=== PATIENT | female | born 1945 | race Caucasian/White ===

== ENCOUNTER → 2016-07-14 | Outpatient (CLI) | payer MEDICARE ==
--- NOTE | 2016-07-14 10:31 | MM ---
Reason for exam: screening (asymptomatic). Last mammogram was performed 1 year and 7 months ago. History: Patient is postmenopausal. Benign excisional biopsy of the left breast. Physical Findings: A clinical breast exam by your physician is recommended on an annual basis and results should be correlated with mammographic findings. MG 3D Screening Mammo W/Cad Bilateral CC and MLO view(s) were taken. Prior study comparison: December 26, 2014, bilateral MG screening mammo w CAD. December 05, 2013, bilateral MG screening mammo w CAD. November 11, 2011, bilateral digital screening mammo w/CAD. The breast tissue is heterogeneously dense. This may lower the sensitivity of mammography. Finding: There are typically benign vascular, round, linear calcifications in both breasts. There is no discrete abnormality. ASSESSMENT: Benign, BI-RAD 2 RECOMMENDATION: Routine screening mammogram of both breasts in 1 year.
--- NOTE | 2016-07-14 11:28 | BD ---
EXAMINATION TYPE: MG DEXA axial skeleton. DATE OF EXAM: 07/14/2016 9:25 AM COMPARISON: DEXA bone scan December 05, 2013. CLINICAL HISTORY: Postmenopausal female Height: 62 IN Weight: 123 LBS FRAX RISK QUESTIONS: Alcohol (3 or more units per day): NO Family History (Parent hip fracture): NO Glucocorticoids (More than 3mos): NO (Ex: prednisone, prednisolone, methylprednisolone, dexamethasone, and hydrocortisone). History of Fracture in Adulthood: NO Secondary Osteoporosis: 1. Type 1 Diabetes: NO 2. Hyperthyroidism: NO 3. Menopause before 45: AGE 54 4. Malnutrition: NO 5. Chronic liver disease: NO Rheumatoid Arthritis: NO Current Tobacco Use: YES RISK FACTORS HISTORY OF: Smoke tobacco: YES Active: YES Postmenopausal woman: AGE 54 MEDICATIONS: Osteoporosis Medications: YES Which medication: ALENDRONATE SODIUM How Lon + YRS Additional Medications: HYZAAR, ALENDRONATE SODIUM, FISH OIL, BABY ASPIRIN, VIT D, SIMVASTATIN EXAM MEASUREMENTS: Bone mineral densitometry was performed using the [employer] System. Bone mineral density as measured about the Lumbar spine is: ----- L1-L4(G/cm2): 1.366 T Score Values are as follows: ----- L2: -0.4 ----- L3: 3.3 ----- L4: 3.8 ----- L1-L4: 1.5 Bone mineral density has: Increased 4.4% since study of: 12/05/2013 Bone mineral density about the R hip (g/cm2): 0.822 Bone mineral density about the L hip (g/cm2): 0.813 T Score values are as follows: -----R Neck: -1.6 -----L Neck: -1.6 -----R Intertrochanter: -1.9 -----L Intertrochanter: -1.9 Bone mineral density has: Decreased -0.7% since study of: 12/05/2013 IMPRESSION: Osteopenia (T Score between -2.5 and -1 as noted by T score values in the bilateral hips remains pres ent. Bone density felt falsely elevated in the low back due to reactive sclerosis. There remains slightly increased risk of fracture and the patient may be considered for treatment. Re-Screen 1-2 years. NOTE: T-SCORE=SD OF THE YOUNG ADULT MEAN.
== END | disposition home or self-care (01) ==
LOC: RADMAMWWP 09:16
PROVIDERS: ATTEND Family Medicine
DX: Z12.31 Encounter for screening mammogram for malignant neoplasm of breast (principal); M85.852 Other specified disorders of bone density and structure, left thigh; M85.851 Other specified disorders of bone density and structure, right thigh
CPT/HCPCS: 77080; 77063; G0202

== ENCOUNTER → 2018-11-01 | Outpatient (CLI) | payer MEDICARE ==
--- NOTE | 2018-11-02 10:21 | BD ---
EXAMINATION TYPE: Axial Bone Density DATE OF EXAM: 11/01/2018 COMPARISON: 07/14/2016 CLINICAL HISTORY: Postmenopausal female. Osteoporosis screening. Height: 64 inches Weight: 107 FRAX RISK QUESTIONS: Alcohol (3 or more units per day): no Family History (Parent hip fracture): no Glucocorticoids (More than 3mos): no (Ex: prednisone, prednisolone, methylprednisolone, dexamethasone, and hydrocortisone). History of Fracture in Adulthood: no Secondary Osteoporosis: 1. Type 1 Diabetes: no 2. Hyperthyroidism: no 3. Menopause before 45: no 4. Malnutrition: no 5. Chronic liver disease: no Rheumatoid Arthritis: no Current Tobacco Use: yes RISK FACTORS HISTORY OF: Family History of Osteoporosis: unsure Active: yes Diet low in dairy products/other sources of calcium: no Postmenopausal woman: yes Take estrogen and/or progesterone medications: no Lost more than 2 inches in height since high school: unsure; patient states height was about 66 inche s at one time Frequent falls: no Poor Health: no Hyperparathyroidism: no Adrenal Insufficiency: no MEDICATIONS: Prednisone or other steroids: no Thyroid Medications: no Osteoporosis Medications: yes Which medication: Alendronate Sodium How Long: over 5 years Additional Medications: Hyzaar, Simvastatin, Vitamin D Additional History: arthritis EXAM MEASUREMENTS: Bone mineral densitometry was performed using the [employer] System. Bone mineral density as measured about the Lumbar spine is: ----- L1-L4(G/cm2): 1.352 T Score Values are as follows: ----- L2: -0.5 ----- L3: 3.1 ----- L4: 4.1 ----- L1-L4: 1.4 Bone mineral density has: 0.0% since study of: 07/14/2016 Bone mineral density about the R hip (g/cm2): 0.807 Bone mineral density about the L hip (g/cm2): 0.779 T Score values are as follows: -----R Neck: -1.7 -----L Neck: -1.9 -----R Total: -1.7 -----L Total: -1.8 Bone mineral density has: Decreased -2.6% since study of: 07/14/2016 IMPRESSION: Osteopenia (T Score between -2.5 and -1). There is slightly increased risk of fracture and the patient may be considered for treatment. Re-Screen 2-5 years. NOTE: T-SCORE=SD OF THE YOUNG ADULT MEAN.
--- NOTE | 2018-11-02 12:11 | MM ---
Reason for exam: screening (asymptomatic). Last mammogram was performed 2 years and 4 months ago. History: Patient is postmenopausal. Benign excisional biopsy of the left breast. Physical Findings: A clinical breast exam by your physician is recommended on an annual basis and results should be correlated with mammographic findings. MG 3D Screening Mammo W/Cad Bilateral CC and MLO view(s) were taken. Prior study comparison: July 14, 2016, bilateral MG 3d screening mammo w/cad. December 26, 2014, bilateral MG screening mammo w CAD. The breast tissue is extremely dense which could obscure a lesion on mammography. There are benign appearing round linear calcifications bilaterally. There is no discrete abnormality. ASSESSMENT: Benign, BI-RAD 2 RECOMMENDATION: Routine screening mammogram of both breasts in 1 year.
== END ==
LOC: RADMAMWWP 09:58
PROVIDERS: ATTEND Family Medicine
DX: Z12.31 Encounter for screening mammogram for malignant neoplasm of breast (principal); M85.80 Other specified disorders of bone density and structure, unspecified site; M81.0 Age-related osteoporosis without current pathological fracture
CPT/HCPCS: 77063; 77067; 77080

== ENCOUNTER 2021-12-26 05:49 | Inpatient (IN) | payer MEDICARE ==
[2021-12-26] MEDS ORDERED: ONDANSETRON 4 MG/2 ML VIAL IVP ONE (06:05)
[2021-12-26] MEDS ORDERED: MIDAZOLAM 2 MG/2 ML VIAL IV PRN (06:05)
[2021-12-26] MEDS ORDERED: LACTATED RINGERS 1,000 ML IV SCH (06:05)
[2021-12-26] MEDS ORDERED: fentaNYL (PF) 50 MCG/ML 2 ML AMP IVP PRN (06:05)
[2021-12-26] MEDS ORDERED: DEXAMETHASONE SOD PHOSPHATE 4 MG/ML 1 ML VIAL IV ONE (06:05)
[2021-12-26] MEDS ORDERED: HYDROmorphone 0.5 MG/0.5 ML SYRINGE IVP PRN (06:05)
[2021-12-26] MEDS ORDERED: LIDOCAINE 1% (10MG/ML) FOR IV START INTRADERMA PRN (06:05)
[2021-12-26] MEDS ORDERED: LACTATED RINGERS 1,000 ML IV ONE ×5 (06:40→12:15)
[2021-12-26 07:08] LABS: Basophils # (A) 0.1 k/uL (0-0.2); Basophils % (A) 1 %; Eosinophils # (A) 0.2 k/uL (0-0.7); Eosinophils % (A) 3 %; HCT 36.4 % (34.0-46.0); HGB 11.3 gm/dL (11.4-16.0); Hypochromasia Slight; Lymphocytes # (A) 2.1 k/uL (1.0-4.8); Lymphocytes % (A) 27 %; MCH 26.3 pg (25.0-35.0); MCHC 31.1 g/dL (31.0-37.0); MCV 84.4 fL (80.0-100.0); Monocytes # (A) 0.5 k/uL (0-1.0); Monocytes % (A) 7 %; Neutrophils # (A) 4.6 k/uL (1.3-7.7); Neutrophils % (A) 59 %; Platelet Count 297 k/uL (150-450); RBC 4.31 m/uL (3.80-5.40); RDW 14.7 % (11.5-15.5); WBC 7.8 k/uL (3.8-10.6)
[2021-12-26] MEDS ORDERED: fentaNYL (PF) 50 MCG/ML 2 ML AMP IV ONE (07:14)
[2021-12-26] MEDS ORDERED: MIDAZOLAM 2 MG/2 ML VIAL IV ONE ×2 (07:14→07:26)
[2021-12-26] MEDS ORDERED: SUCCINYLCHOLINE CHLORIDE 200 MG/10 ML VIAL IV ONE (07:20)
[2021-12-26] MEDS ORDERED: fentaNYL (PF) 50 MCG/ML 2 ML AMP ONE (07:20)
[2021-12-26] MEDS ORDERED: GLYCOPYRROLATE 0.2 MG/ML 2 ML VIAL ONE (07:20)
[2021-12-26] MEDS ORDERED: LIDOCAINE 2% INJ 20 MG/ML (2 ML VIAL) ONE (07:20)
[2021-12-26] MEDS ORDERED: PROPOFOL 10 MG/ML 20 ML VIAL IV ONE (07:20)
[2021-12-26] MEDS ORDERED: MIDAZOLAM 2 MG/2 ML VIAL ONE (07:20)
[2021-12-26] MEDS ORDERED: ROCURONIUM 10 MG/ML (5 ML VIAL) IV ONE (07:20)
[2021-12-26] MEDS ORDERED: NEOSTIGMINE 1 MG/ML 10 ML VIAL ONE (07:20)
[2021-12-26] MEDS ORDERED: SODIUM CHLORIDE 0.9% IRRIG 1,000 ML BTL IRRIGATION ONE (07:20)
[2021-12-26] MEDS ORDERED: PHENYLEPHRINE-0.9% NACL SYG 1,000 MCG/10 ML SYRINGE ONE (07:20)
[2021-12-26] MEDS ORDERED: HYDROmorphone (PF) 1 MG/ML ONE (07:20)
[2021-12-26] MEDS ORDERED: HEPARIN SODIUM,PORCINE 10,000 UNIT/ML 1 ML VIAL ONE ×2 (07:20)
--- NOTE | 2021-12-26 07:26 | P.GSHP ---
History of Present Illness H&P Date: 12/26/21 Chief Complaint: lower extremity pain 76 year old female with history of claudication and rest pain presents to the hospital for aortobifemoral bypass after workup with aortogram and dopplers demonstrated aorto-iliac occlusive disease with reconstitution at the bilateral femoral arteries. The occlusion extends to the renal arteries and after discussion she would benefit from bypass. She was sent for medical and cardiac clearance and was deemed suitable risk for surgery. She presents today for surgery. She denies any fevers, chills, chest pain or shortness of breath. She states she hasn't smoked a cigarette in a couple of months. - Review of Systems All systems: negative (what is mentioned in the PMH or HPI) Past Medical History Past Medical History: COPD, Hyperlipidemia, Hypertension, Osteoarthritis (OA), Vascular Disorder Additional Past Medical History / Comment(s): vin lower leg pain increasing recently, osteoporosis History of Any Multi-Drug Resistant Organisms: None Reported Past Surgical History: Breast Surgery, Hysterectomy Additional Past Surgical History / Comment(s): benign left breast bx., abd. aortogram Past Anesthesia/Blood Transfusion Reactions: No Reported Reaction Past Psychological History: No Psychological Hx Reported Smoking Status: Former smoker Past Alcohol Use History: Occasional Additional Past Alcohol Use History / Comment(s): 1ppd since age 13 but quit smoking 09-30-21, used to drink 1 beer every Wednesday but hasn't since September Past Drug Use History: None Reported Additional Drug Use History / Comment(s): Drinks one beer every Wednesday. Smokes a pack of cigarettes a day. Medications and Allergies Home Medications Medication Instructions Recorded Confirmed Type Alendronate Sodium [Fosamax] 70 mg PO TREJO 09/29/21 12/25/21 History Aspirin 81 mg PO DAILY 09/29/21 12/25/21 History Calcium Carbonate/Vitamin D3 1 cap PO DAILY 09/29/21 12/25/21 History [Calcium 600 mg-D3 10 Mcg (400 Iu)] Losartan [Cozaar] 50 mg PO DAILY #30 tab 10/02/21 12/25/21 Rx Atorvastatin [Lipitor] 80 mg PO HS 12/25/21 12/25/21 History Allergies Allergy/AdvReac Type Severity Reaction Status Date / Time No Known Allergies Allergy Verified 12/25/21 10:24 Surgical - Exam Vital Signs Temp Pulse Resp BP Pulse Ox 98 F 86 20 197/87 98 12/26/21 06:38 12/26/21 06:38 12/26/21 06:38 12/26/21 06:38 12/26/21 06:38 - General well developed, well nourished, no distress - Eyes PERRL, normal ocular movement - ENT normal pinna, normal nares - Neck no masses, no bruits - Respiratory normal expansion, normal respiratory effort - Cardiovascular Rhythm: regular - Abdomen Abdomen: soft, non tender - Genitourinary normal external genitalia - Integumentary no rash - Neurologic normal coordination, no normal sensation - Psychiatric oriented to time, oriented to person, oriented to place, speech is normal non palpable femoral, popliteal, dp or pt pulses. monophasic dp and pt signals bilaterally Results - Labs 12/26/21 06:38 Abnormal Lab Results - Last 24 Hours (Table) 12/26/21 Range/Units 06:38 Hgb 11.3 L (11.4-16.0) gm/dL Assessment and Plan Assessment: 1. AortoIliac occlusion 2. Rest pain [place] classification 4 3. History of tobacco abuse Plan: To the OR for aorto-bifemoral bypass. Family at bedside, updated and all questions answered.
[2021-12-26 07:43] LABS: ALT 45 U/L (4-34); AST 49 U/L (14-36); African American GFR (CKD) >90 (>60 ml/min/1.73 sqM); Albumin 4.1 g/dL (3.5-5.0); Alkaline Phosphatase 154 U/L (38-126); Anion Gap 8 mmol/L; Blood Urea Nitrogen 20 mg/dL (7-17); Calcium 9.2 mg/dL (8.4-10.2); Carbon Dioxide 27 mmol/L (22-30); Chloride 104 mmol/L (98-107); Glucose 111 mg/dL (74-99); Non-African American GFR(CKD) >90 (>60 ml/min/1.73 sqM); Potassium 3.8 mmol/L (3.5-5.1); Sodium 139 mmol/L (137-145); Total Bilirubin 0.5 mg/dL (0.2-1.3); Total Protein 7.1 g/dL (6.3-8.2)
[2021-12-26] MEDS ORDERED: HEPARIN SODIUM,PORCINE 10,000 UNIT in SODIUM CHLORIDE 0.9% 1,000 ML IRRIGATION ONE (08:15)
[2021-12-26] MEDS ORDERED: ceFAZolin 4,000 MG in SODIUM CHLORIDE 0.9% 1,000 ML IRRIGATION ONE (08:15)
[2021-12-26] MEDS ORDERED: THROMBIN (BOVINE) 5,000 UNIT VIAL TOPICAL ONE ×3 (08:48)
[2021-12-26] MEDS ORDERED: GELATIN SPONGE,ABSORB (LARGE) 1 EACH SPONGE TOPICAL ONE (08:49)
[2021-12-26] MEDS ORDERED: NALOXONE 0.4 MG/ML 1 ML VIAL IVP PRN (12:42)
[2021-12-26] MEDS ORDERED: NALOXONE 0.4 MG/ML 1 ML VIAL IV PRN (12:45)
--- NOTE | 2021-12-26 12:56 | P.OP ---
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 [id number]-[id number] artery bypass with Herron PTFE graft 2. Left femoral artery endarterectomy Implants: Herron PTFE aortic femoral 14-7mm graft Anesthesia: GETA Surgeon: Michael Liu [employer]1: Anna Marie Bowman Estimated Blood Loss (ml): 300 Pathology: other (femoral plaque left, aortic lymph node and femoral lymph node) Condition: stable Disposition: PACU Indications for Procedure: 76 year old female with history of claudication, rest pain, parasthesias with history of angiogram demonstrating severe occlusion of the aorta and iliac arteries with reconstitution to bilateral femoral arteries presents for aortic femoral bypass. Operative Findings: dense calcification infrarenal aorta with occlusion. Pulse noted just beneath the renal arteries. Occlusion of the bilateral iliac arteries. Left femoral artery with dense plaque and stenosis. Right femoral was patent and soft with distal iliac artery occlusion. Description of Procedure: After written and informed consent was obtained from the patient and all risks, benefits and complications were described the patient was brought to the operative suite and laid in a supine position. The area from the chest to the knees was prepped and draped in the usual sterile fashion. Time out was performed in usual fashion and antibiotics were given prior to incision. A mid line incision was then created with a 10 blade scalpel from the xiphoid to the pubic bone. Dissection was then carried down to the abdominal fascia and the abdomen was entered. Intra-abdominal contents were evaluated demonstrating a large liver, and multiple varicosities in the pelvis. The stomach, small bowel and large bowel appeared to be normal without issues. An Omni retractor was then placed and the small bowel was placed into the right upper quadrant to get access to the retroperitoneal area. Once the aorta was located and bowel retracted, the retroperitoneum was incised and dissection was carried down to the aorta and the aorta was dissected free to the renal vein proximally and the bifurcation distally. Meticulous dissection was carried around the aorta to an area of pulse which was noted just below the renal vein. The renal vein was retracted proximally and the aorta was dissected both laterally and medially in order to place a clamp. Once dissection completed the attention was then placed to the femoral dissection. Oblique incisions were performed bilaterally and dissection was carried down to the femoral arteries. The femoral artery was dissected in a circumferential manner and control was obtained of the femoral, superficial femoral and profundus femoris arteries with vessel loops. The tunnel for the femoral limbs were then created under the inguinal ligament into the retroperitoneal area up to the aorta in normal fashion and umbilical tape was placed bilaterally. Once controlled attention was placed back to the aorta. The patient was given heparin and followed with serial ACTs with redosing as needed to maintain an ACT above 200. Once ACT was above 200 the aorta was clamped and arteriotomy was created with an 11 blade scalpel and extended with Bauer Ballard scissors. The aorta demonstrated calcific disease with occlusion at the inferior mesenteric artery. There was pulsatile flow just beneath the renal artery which was just above the arteriotomy. Free debris was removed and a 14 x 7mm Herron PTFE graft was chosen, spatulated and cut and an end to side anastomosis was created with 3-0 Prolene suture in a running fashion. Once completed control of the aorta was released and suture line was interrogated. There was a small leak which was secured with a pledget 6-0 Prolene suture. Attention was then placed to the femoral anastomosis. The previous placed umbilical tape was then secured to the iliac limbs of the graft and they were pulled to the groin bilaterally ensuring no rotation of the graft occurred. The femoral arteries were then clamped and arteriotomy was created with an 11 blade scalpel and extended with Bauer scissors. The right femoral artery was soft distal to the iliac occlusion without any significant plaque burden. There was brisk backbleeding from the SFA and profunda. The graft was spatulated and end to side anastomosis was created with 6-0 Prolene suture in a running fashion. Control was released once completed and pulsatile flow was noted into the SFA and profunda. The left femoral artery noted to be stenotic with significant plaque which required an endarterectomy. Endarterectomy of the femoral, SFA and profunda was performed in usual fashion and plaque was sent off for pathology. Once completed the graft was spatulated and end to side anastomosis was performed with 6-0 Prolene suture in a running fashion. All control was released after completion and good pulse was noted distally in the SFA and profunda. Hemostasis was controlled with gelfoam and thrombin and once hemostatic the areas were copiously irrigated with antibiotic solution and the groin incisions were then closed in a multilayer fashion. Attention was placed back to the abdomen and the abdomen was copiously irrigated with antibiotic solution, hemostasis was ensured and retroperitoneum was closed with 2-0 vicryl in a running fashion. The bowel was interrogated again demonstrating no abnormalities. An nasogastric tube was placed into the stomach and the abdomen was closed. The fascia was closed with loop PDS suture in a running fashion and skin was closed with jahaira. The skin was cleansed and Prevena dressings were placed on all incisions. The patient tolerated the procedure well, had palpable DP and PT pulses at the conclusion of the procedure and was sent to PACU for recovery.
[2021-12-26] MEDS: LACTATED RINGERS 1,000 ML IV SCH ×2 (13:21→13:32)
[2021-12-26] MEDS ORDERED: ACETAMINOPHEN IV (For NPO) 1,000 MG in EMPTY BAG 1 BAG IVPB ONE (14:00)
[2021-12-26 14:25] LABS: Basophils % (A) 0 %; Eosinophils % (A) 0 %; HCT 25.2 % (34.0-46.0); Hypochromasia Moderate; Lymphocytes # (A) 0.6 k/uL (1.0-4.8); Lymphocytes % (A) 10 %; MCH 26.6 pg (25.0-35.0); MCHC 31.2 g/dL (31.0-37.0); MCV 85.3 fL (80.0-100.0); Mean Platelet Volume 7.9; Monocytes # (A) 0.2 k/uL (0-1.0); Monocytes % (A) 4 %; Neutrophils # (A) 4.8 k/uL (1.3-7.7); Neutrophils % (A) 84 %; Platelet Count 221 k/uL (150-450); RBC 2.96 m/uL (3.80-5.40); RDW 14.8 % (11.5-15.5); WBC 5.7 k/uL (3.8-10.6)
[2021-12-26 14:36] LABS: HGB 7.9 gm/dL (11.4-16.0)
[2021-12-26 14:37] LABS: African American GFR (CKD) >90 (>60 ml/min/1.73 sqM); Anion Gap 3 mmol/L; Blood Urea Nitrogen 16 mg/dL (7-17); Calcium 6.9 mg/dL (8.4-10.2); Carbon Dioxide 22 mmol/L (22-30); Chloride 111 mmol/L (98-107); Glucose 137 mg/dL (74-99); Magnesium 1.1 mg/dL (1.6-2.3); Non-African American GFR(CKD) >90 (>60 ml/min/1.73 sqM); Potassium 3.2 mmol/L (3.5-5.1); Sodium 136 mmol/L (137-145)
[2021-12-26 14:47] LABS: Glucose,Whole Blood 158 mg/dL (70-110)
[2021-12-26] MEDS: MORPHINE SULFATE 2 MG/ML SYRINGE IV PRN (15:31)
--- NOTE | 2021-12-26 16:04 | P.CNPUL ---
History of Present Illness Consult date: 12/26/21 Requesting physician: Michael Liu Reason for consult: other (ICU management) Chief complaint: Lower extremities claudication History of present illness: This is a 76-year-old female with known history of peripheral vessel occlusive disease, patient had chronic claudications, patient had aortogram and Dopplers demonstrated I aortic iliac occlusive disease with reconstitution at the bilateral femoral arteries. The occlusion extends to the renal arteries, patient underwent today aortic bifemoral bypass, done by vascular surgery, postoperatively the patient was admitted to the ICU, and I was asked to see her on consultation. Patient is comfortable, hemodynamically stable, she is on 3 L nasal cannula O2 sats was 99%. Denies any shortness of breath denies any cough denies any chest pain, and she had distal pulses palpable by Doppler. No evidence of cyanosis in lower extremities and feet. Review of Systems CONSTITUTIONAL: Denies fever or chills. CARDIOVASCULAR: Denies chest pain, shortness of breath, orthopnea, PND or palpitations. RESPIRATORY: Denies cough. GASTROINTESTINAL: Denies abdominal pain, diarrhea, constipation, nausea or vomiting. MUSCULOSKELETAL: Denies myalgias. NEUROLOGIC: Denies numbness, tingling, headacbe or weakness. ENDOCRINE: Denies fatigue, weight change, polydipsia or polyurina. GENITOURINARY: Denies burning, hematuria or urgency with micturation. HEMATOLOGIC: Denies history of anemia or bleeding. Past Medical History Past Medical History: COPD, Hyperlipidemia, Hypertension, Osteoarthritis (OA), Vascular Disorder Additional Past Medical History / Comment(s): vin lower leg pain increasing recently, osteoporosis History of Any Multi-Drug Resistant Organisms: None Reported Past Surgical History: Breast Surgery, Hysterectomy Additional Past Surgical History / Comment(s): benign left breast bx., abd. aortogram Past Anesthesia/Blood Transfusion Reactions: No Reported Reaction Past Psychological History: No Psychological Hx Reported Smoking Status: Former smoker Past Alcohol Use History: Occasional Additional Past Alcohol Use History / Comment(s): 1ppd since age 13 but quit smoking 09-30-21, used to drink 1 beer every Wednesday but hasn't since September Past Drug Use History: None Reported Additional Drug Use History / Comment(s): Drinks one beer every Wednesday. Smokes a pack of cigarettes a day. Medications and Allergies Home Medications Medication Instructions Recorded Confirmed Type Alendronate Sodium [Fosamax] 70 mg PO TREJO 09/29/21 12/25/21 History Aspirin 81 mg PO DAILY 09/29/21 12/25/21 History Calcium Carbonate/Vitamin D3 1 cap PO DAILY 09/29/21 12/25/21 History [Calcium 600 mg-D3 10 Mcg (400 Iu)] Losartan [Cozaar] 50 mg PO DAILY #30 tab 10/02/21 12/25/21 Rx Atorvastatin [Lipitor] 80 mg PO HS 12/25/21 12/25/21 History Allergies Allergy/AdvReac Type Severity Reaction Status Date / Time No Known Allergies Allergy Verified 12/25/21 10:24 Physical Exam Vitals: Vital Signs Temp Pulse Pulse Pulse Resp BP BP 12/26/21 14:40 96.9 F L 85 14 128/57 12/26/21 14:30 81 13 12/26/21 14:26 87 14 12/26/21 13:50 91 16 144/47 12/26/21 13:33 91 16 143/48 12/26/21 13:18 83 16 139/46 12/26/21 13:02 66 16 107/37 12/26/21 12:49 70 16 116/50 12/26/21 12:34 97.1 F L 69 16 143/48 12/26/21 07:27 75 18 12/26/21 06:38 98 F 86 20 194/84 BP BP Pulse Ox 12/26/21 14:40 99 12/26/21 14:30 93 L 12/26/21 14:26 12/26/21 13:50 126/58 100 12/26/21 13:33 120/56 100 12/26/21 13:18 113/57 100 12/26/21 13:02 110/49 100 12/26/21 12:49 118/57 100 12/26/21 12:34 151/50 100 12/26/21 07:27 144/67 100 12/26/21 06:38 197/87 98 Intake and Output 12/26/21 12/26/21 12/26/21 06:59 14:59 22:59 Intake Total 400 3752 Output Total 675 Balance 400 3077 Intake: IV 400 3752 Output: Urine 325 Estimated Blood Loss 350 Other: Voiding Method Indwelling Catheter Weight 46.8 kg ABP, PAP, CO, CI - Last 8 Hours Arterial Blood Pressure 151/41 Arterial Blood Pressure 139/37 Physical Exam: Revealed a 76-year-old female in no distress, on 3 L nasal cannula. Head: Atraumatic, normocephalic. HEENT:[Neck is supple.] [No neck masses.] [No thyromegaly.] [No JVD.] Chest: [Clear throughout, no crackles, no rhonchi, no wheezes.] Cardiac Exam: [Normal S1 and S2, no S3 gallop, no murmur.] Abdomen: [Soft, nontender, no megaly, no rebound, no guarding, normal bowel sounds.] Extremities: [No clubbing, no edema, no cyanosis.] Neurological Exam: [No focal neurologic deficit.] Alert oriented 3 Psychiatric: Normal mood affect and normal mental status examination. Skin: No rashes. Results - Laboratory Findings CBC and BMP: 12/26/21 13:58 12/26/21 13:58 Abnormal lab findings: Abnormal Labs 12/26/21 12/26/21 12/26/21 06:38 07:05 13:58 RBC Hgb 11.3 L Hct Lymphocytes # Sodium 136 L Potassium 3.2 L Chloride 111 H BUN 20 H Creatinine 0.41 L Glucose 111 H 137 H POC Glucose (mg/dL) Calcium 6.9 L Magnesium 1.1 L AST 49 H ALT 45 H Alkaline Phosphatase 154 H 12/26/21 12/26/21 13:58 14:45 RBC 2.96 L Hgb 7.9 L D Hct 25.2 L Lymphocytes # 0.6 L Sodium Potassium Chloride BUN Creatinine Glucose POC Glucose (mg/dL) 158 H Calcium Magnesium AST ALT Alkaline Phosphatase Assessment and Plan Assessment: Impression: Severe peripheral vessel occlusive disease, status post aortobifemoral bypass surgery. Chronic claudications Nicotine dependence syndrome Hypertension Dyslipidemia Recommendation: Continue present supportive care measures Continue incentive spirometry Titrate oxygen, maintaining O2 saturations of 91% Counseled regarding smoking cessation Resume home meds We will continue to follow Continue GI and DVT prophylaxis. Time with Patient: Greater than 30
[2021-12-26 16:46] LABS: African American GFR (CKD) >90 (>60 ml/min/1.73 sqM); Anion Gap 4 mmol/L; Blood Urea Nitrogen 18 mg/dL (7-17); Calcium 8.1 mg/dL (8.4-10.2); Carbon Dioxide 25 mmol/L (22-30); Chloride 104 mmol/L (98-107); Glucose 163 mg/dL (74-99); Magnesium 1.3 mg/dL (1.6-2.3); Non-African American GFR(CKD) >90 (>60 ml/min/1.73 sqM); Potassium 3.5 mmol/L (3.5-5.1); Sodium 133 mmol/L (137-145)
[2021-12-26] MEDS: HEPARIN SODIUM,PORCINE/PF 5,000 UNIT/0.5 ML SYRINGE SQ SCH (16:52)
[2021-12-26] MEDS ORDERED: Magnesium Replacement Protocol 1 EACH MISC MISCELLANE PRN (16:53)
[2021-12-26] MEDS: PANTOPRAZOLE 40 MG TABLET PO SCH (17:02)
[2021-12-26] MEDS: MAGNESIUM SULFATE-D5W PMX 1 GM in DEXTROSE/WATER 1 100ML.BAG IVPB SCH ×3 (17:02→20:19)
[2021-12-26] MEDS: POTASSIUM CHLORIDE ER 20 MEQ TAB.ER PO SCH ×2 (17:02→18:56)
[2021-12-27] MEDS: ATORVASTATIN 80 MG TAB PO SCH ×2 (02:30→20:05)
[2021-12-27] MEDS: MORPHINE SULFATE 2 MG/ML SYRINGE IV PRN ×4 (03:29→22:26)
[2021-12-27] MEDS: LACTATED RINGERS 1,000 ML IV SCH ×3 (04:03→22:28)
[2021-12-27 05:22] LABS: ALT 21 U/L (4-34); AST 23 U/L (14-36); African American GFR (CKD) >90 (>60 ml/min/1.73 sqM); Albumin 2.2 g/dL (3.5-5.0); Alkaline Phosphatase 68 U/L (38-126); Anion Gap 7 mmol/L; Blood Urea Nitrogen 18 mg/dL (7-17); Carbon Dioxide 19 mmol/L (22-30); Chloride 111 mmol/L (98-107); Glucose 117 mg/dL (74-99); Non-African American GFR(CKD) >90 (>60 ml/min/1.73 sqM); Potassium 3.4 mmol/L (3.5-5.1); Sodium 137 mmol/L (137-145); Total Bilirubin 0.2 mg/dL (0.2-1.3); Total Protein 4.2 g/dL (6.3-8.2)
[2021-12-27 05:41] LABS: Calcium 6.4 mg/dL (8.4-10.2)
[2021-12-27 06:41] LABS: Magnesium 1.9 mg/dL (1.6-2.3)
[2021-12-27] MEDS ORDERED: POTASSIUM CHLORIDE ER 20 MEQ TAB.ER PO SCH (08:00)
[2021-12-27] MEDS ORDERED: ASPIRIN 81 MG PO SCH (09:00)
[2021-12-27] MEDS ORDERED: SODIUM CHLORIDE 0.9% 500 ML 500 ML IV ONE (09:31)
--- NOTE | 2021-12-27 09:55 | P.PN ---
Subjective Progress Note Date: 12/27/21 Patient seen and examined. Per nursing today, she came in and patient was not hooked up to intermittent suction. NG tube was to gravity. There was no suction to the abdominal wound VAC. Currently patient has no significant complaints. Abdominal pain is relatively well controlled. She denies any naus ea but says she is burping a fair bit. Denies any flatus. She apparently had her Bowman catheter removed yesterday evening and only had 180 mL of urine output overnight, she was given 500 mL bolus. Objective - Vital Signs Vital signs: Vital Signs Temp 98.6 F 12/27/21 08:30 Pulse 118 H 12/27/21 09:30 Resp 13 12/27/21 09:30 BP 106/55 12/27/21 09:30 Pulse Ox 95 12/27/21 09:00 FiO2 Intake & Output 12/26/21 12/27/21 12/27/21 18:59 06:59 18:59 Intake Total 4092 1290 300 Output Total 1010 175 0 Balance 3082 1115 300 Weight 55.5 kg Intake: IV 3992 840 300 Lactated Ringers 1,000 ml 240 840 300 @ 60 mls/hr IV .[id number] [facility] Rx#:[id number] Intake, IV Titration 100 100 Amount Magnesium Sulfate-D5w Pmx 100 100 1 gm In Dextrose/Water 1 100ml.bag @ 100 mls/hr IVPB Q1H [facility] Rx#: [id number] Oral 350 Output: Urine 660 175 0 Estimated Blood Loss 350 Other: Voiding Method Indwelling Catheter ABP, PAP, CO, CI - Last Documented Arterial Blood Pressure 133/35 - Exam Patient seen and examined no acute distress. Sitting up in the chair at the bedside. NG tube in place. Poorly fitting dentures. Heart appears regular. Lungs are clear, diminished. Abdomen is soft. Wound VAC intact with adequate suction. Lower extremity are warm and dry. Palpable dorsalis pedis on the right. Multiphasic signals DP PT bilaterally. - Labs CBC & Chem 7: 12/26/21 13:58 12/27/21 04:30 Labs: Abnormal Lab Results - Last 24 Hours (Table) 12/26/21 12/26/21 12/26/21 Range/Units 13:58 13:58 14:45 RBC 2.96 L (3.80-5.40) m/uL Hgb 7.9 L D (11.4-16.0) gm/dL Hct 25.2 L (34.0-46.0) % Lymphocytes # 0.6 L (1.0-4.8) k/uL Sodium 136 L (137-145) mmol/L Potassium 3.2 L (3.5-5.1) mmol/L Chloride 111 H (98-107) mmol/L Carbon Dioxide (22-30) mmol/L BUN (7-17) mg/dL Creatinine 0.41 L (0.52-1.04) mg/dL Glucose 137 H (74-99) mg/dL POC Glucose (mg/dL) 158 H (70-110) mg/dL Calcium 6.9 L (8.4-10.2) mg/dL Magnesium 1.1 L (1.6-2.3) mg/dL Total Protein (6.3-8.2) g/dL Albumin (3.5-5.0) g/dL 12/26/21 12/27/21 Range/Units 16:21 04:30 RBC (3.80-5.40) m/uL Hgb (11.4-16.0) gm/dL Hct (34.0-46.0) % Lymphocytes # (1.0-4.8) k/uL Sodium 133 L (137-145) mmol/L Potassium 3.4 L (3.5-5.1) mmol/L Chloride 111 H (98-107) mmol/L Carbon Dioxide 19 L (22-30) mmol/L BUN 18 H 18 H (7-17) mg/dL Creatinine 0.43 L 0.46 L (0.52-1.04) mg/dL Glucose 163 H 117 H (74-99) mg/dL POC Glucose (mg/dL) (70-110) mg/dL Calcium 8.1 L 6.4 L* (8.4-10.2) mg/dL Magnesium 1.3 L (1.6-2.3) mg/dL Total Protein 4.2 L (6.3-8.2) g/dL Albumin 2.2 L (3.5-5.0) g/dL Assessment and Plan Assessment: Postoperative day #1 from aortobifemoral bypass, left femoral endarterectomy for aortoiliac occlusion Hypocalcemia Hypoalbuminemia Decreased urine output Plan: Patient looks relatively satisfactory for postop day 1 from aortobifemoral bypass. Reinitiate Bowman catheter for accurate I's and O's. Continue NG tube to low intermittent suction until return of bowel function. May have ice chips and sips. May suck on hard candy. Replace albumin. hopeful for out of ICU in the next 24 hours. Check a.m. labs
[2021-12-27 10:24] LABS: HCT 23.3 % (34.0-46.0); HGB 7.5 gm/dL (11.4-16.0); Hypochromasia Moderate; MCH 27.3 pg (25.0-35.0); MCV 85.2 fL (80.0-100.0); Mean Platelet Volume 8.4; Platelet Count 219 k/uL (150-450); RBC 2.73 m/uL (3.80-5.40); WBC 9.8 k/uL (3.8-10.6)
[2021-12-27] MEDS: HEPARIN SODIUM,PORCINE/PF 5,000 UNIT/0.5 ML SYRINGE SQ SCH ×4 (10:25→23:56)
[2021-12-27] MEDS: POTASSIUM BICARBONATE/CIT AC 20 MEQ TABLET.EFF NG-TUBE SCH ×2 (10:25→13:06)
[2021-12-27] MEDS: PANTOPRAZOLE 40 MG/10 ML VIAL IVP SCH (10:25)
[2021-12-27] MEDS: ASPIRIN 81 MG PO SCH (10:26)
[2021-12-27] MEDS: CALCIUM CARB-VIT D 500 MG-5 MCG TAB PO SCH (10:26)
[2021-12-27] MEDS: ALBUMIN HUMAN 25% 50 ML in EMPTY BAG 1 BAG IVPB SCH ×2 (10:27→11:46)
[2021-12-27] MEDS: LOSARTAN 50 MG TAB PO SCH (11:50)
--- NOTE | 2021-12-27 11:54 | XR ---
EXAMINATION TYPE: XR chest 1V portable DATE OF EXAM: 12/27/2021 COMPARISON: 09/30/2021 INDICATION: NG tube placement TECHNIQUE: Single frontal view of the chest is obtained. FINDINGS: The heart size is normal. The pulmonary vasculature is normal. The lungs are clear. Lung apices are out of the [id number]. Nasogastric tube transverses the thorax tip within the left mid abdomen. Surgical skin jahaira are pr esent midline. IMPRESSION: 1. No acute pulmonary process. 2. Nasogastric tube tip is within the left abdomen
[2021-12-27] MEDS: PANTOPRAZOLE 40 MG TABLET PO SCH (12:15)
--- NOTE | 2021-12-27 12:26 | P.PN ---
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 The occlusion extends to the renal arteries, patient underwent today aortic bifemoral bypass, done by vascular surgery, postoperatively the patient was admitted to the ICU, and I was asked to see her on consultation. Patient is comfortable, hemodynamically stable, she is on 3 L nasal cannula O2 sats was 99%. Denies any shortness of breath denies any cough denies any chest pain, and she had distal pulses palpable by Doppler. No evidence of cyanosis in lower extremities and feet. Reevaluated today on 12/27/21, patient is doing well, she is on 2 L nasal cannula, IV fluid 0.9 normal saline 100 mL/h, denies any nausea vomiting s hortness of breath, denies any flatness, patient had her Bowman catheter removed yesterday, and there was only 1 80 mL of urine output overnight. Patient was given a fluid bolus, and her main IV fluid was increased. CBC today showed WBC count of 9.8 hemoglobin of 7.5 electrolytes are normal renal profile is normal, potassium was low being corrected, magnesium was low being corrected. Objective - Vital Signs Vital signs: Vital Signs Temp 98.6 F 12/27/21 08:30 Pulse 89 12/27/21 11:30 Resp 14 12/27/21 11:30 BP 133/55 12/27/21 11:30 Pulse Ox 95 12/27/21 11:30 FiO2 Intake & Output 12/26/21 12/27/21 12/27/21 18:59 06:59 18:59 Intake Total 4092 1290 1100 Output Total 1010 175 85 Balance 3082 1115 1015 Weight 55.5 kg Intake: IV 3992 840 1000 Lactated Ringers 1,000 ml 240 840 500 @ 60 mls/hr IV .[id number] [facility] Rx#:[id number] Sodium Chloride 0.9% 500 500 ml 500 ml @ 999 mls/hr IV .Q31M [facility] Rx#:[id number] Intake, IV Titration 100 100 100 Amount Albumin Human 25% 50 ml 100 In Empty Bag 1 bag @ 50 mls/hr IVPB Q1H [facility] Rx#: [id number] Magnesium Sulfate-D5w Pmx 100 100 1 gm In Dextrose/Water 1 100ml.bag @ 100 mls/hr IVPB Q1H [facility] Rx#: [id number] Oral 350 Output: Urine 660 175 85 Estimated Blood Loss 350 Other: Voiding Method Indwelling Catheter ABP, PAP, CO, CI - Last Documented Arterial Blood Pressure 168/46 - Exam Physical Exam: Revealed a 76-year-old female in no distress, on 3 L nasal cannul a. Head: Atraumatic, normocephalic. HEENT:[Neck is supple.] [No neck masses.] [No thyromegaly.] [No JVD.] Chest: [Clear throughout, no crackles, no rhonchi, no wheezes.] Cardiac Exam: [Normal S1 and S2, no S3 gallop, no murmur.] Abdomen: [Soft, nontender, no megaly, no rebound, no guarding, normal bowel sounds.] Extremities: [No clubbing, no edema, no cyanosis.] Neurological Exam: [No focal neurologic deficit.] Alert oriented 3 Psychiatric: Normal mood affect and normal mental status examination. Skin: No rashes. - Labs CBC & Chem 7: 12/27/21 10:05 12/27/21 04:30 Labs: Abnormal Lab Results - Last 24 Hours (Table) 12/26/21 12/26/21 12/26/21 Range/Units 13:58 13:58 14:45 RBC 2.96 L (3.80-5.40) m/uL Hgb 7.9 L D (11.4-16.0) gm/dL Hct 25.2 L (34.0-46.0) % Lymphocytes # 0.6 L (1.0-4.8) k/uL Sodium 136 L (137-145) mmol/L Potassium 3.2 L (3.5-5.1) mmol/L Chloride 111 H (98-107) mmol/L Carbon Dioxide (22-30) mmol/L BUN (7-17) mg/dL Creatinine 0.41 L (0.52-1.04) mg/dL Glucose 137 H (74-99) mg/dL POC Glucose (mg/dL) 158 H (70-110) mg/dL Calcium 6.9 L (8.4-10.2) mg/dL Magnesium 1.1 L (1.6-2.3) mg/dL Total Protein (6.3-8.2) g/dL Albumin (3.5-5.0) g/dL 12/26/21 12/27/21 12/27/21 Range/Units 16:21 04:30 10:05 RBC 2.73 L (3.80-5.40) m/uL Hgb 7.5 L (11.4-16.0) gm/dL Hct 23.3 L (34.0-46.0) % Lymphocytes # (1.0-4.8) k/uL Sodium 133 L (137-145) mmol/L Potassium 3.4 L (3.5-5.1) mmol/L Chloride 111 H (98-107) mmol/L Carbon Dioxide 19 L (22-30) mmol/L BUN 18 H 18 H (7-17) mg/dL Creatinine 0.43 L 0.46 L (0.52-1.04) mg/dL Glucose 163 H 117 H (74-99) mg/dL POC Glucose (mg/dL) (70-110) mg/dL Calcium 8.1 L 6.4 L* (8.4-10.2) mg/dL Magnesium 1.3 L (1.6-2.3) mg/dL Total Protein 4.2 L (6.3-8.2) g/dL Albumin 2.2 L (3.5-5.0) g/dL Assessment and Plan Assessment: Impression: Severe peripheral vessel occlusive disease, status post aortobifemoral bypass surgery. Postoperative day #1 Chronic claudications Nicotine dependence syndrome Hypertension Dyslipidemia Electrolytes imbalance, being corrected accordingly. Recommendation: Continue present supportive care measures Continue incentive spirometry Titrate oxygen, maintaining O2 saturations of 91% Continue GI and DVT prophylaxis. Address abnormal electrolytes and correct as per protocol. Time with Patient: Less than 30
[2021-12-27] MEDS: amLODIPine 5 MG TAB PO SCH (13:09)
[2021-12-27] MEDS ORDERED: SODIUM CHLORIDE 0.9% 1,000 ML IV ONE (13:13)
--- NOTE | 2021-12-27 15:30 | CONS ---
CONSULTATION REASON FOR CONSULTATION: Advice regarding hypertension and other medical issues, requested by Vascular Surgery. HISTORY OF PRESENT ILLNESS: This 76-year-old woman with a past medical history of multiple medical problems, including hypertension and hyperlipidemia, being followed by Dr. Hester in the outpatient setting, underwent aortobifemoral bypass as well as left femoral endarterectomy by Dr. Liu. Patient tolerated the procedure. Patient is being closely monitored in ICU. The patient has an NG tube. There is no history of any fever, rigors or chills. No history of headache, loss of consciousness, seizures at this time. PAST MEDICAL HISTORY: Reviewed. It includes hypertension, hyperlipidemia. HOME MEDICATIONS: Also reviewed and include Lipitor, Cozaar. Doses and the rest of the medications are reviewed. ALLERGIES: NONE. FAMILY HISTORY: No history of heart rate disease or strokes in the family. SOCIAL HISTORY: Previous history of smoking. REVIEW OF SYSTEMS: Fourteen-point review of systems negative except as mentioned earlier. PHYSICAL EXAMINATION: Pulse is 94, blood pressure 182/47, respiration 20. HEENT: Conjunctivae normal. NECK: No jugular venous distention. CARDIOVASCULAR: S1, S2 muffled. RESPIRATION: Breath sounds diminished at the bases. A few scattered rhonchi. ABDOMEN: Soft, nontender. LEGS: No edema. No swelling. NERVOUS SYSTEM: No focal deficit. SKIN: No ulcer, rash, bleeding. JOINTS: No active deforming arthropathy. LABS: WBC 9.2, hemoglobin 7.2. Other labs are noted. ASSESSMENT: 1. Status post aortobifemoral arterial bypass and left femoral endarterectomy for aortoiliac occlusion. 2. Hypertension. 3. Hyperlipidemia. 4. Multiple medical issues. RECOMMENDATION: In this 76-year-old woman who presented with multiple medical issues, we will monitor the patient closely. I would recommend adding Norvasc to the current regimen. Repeat labs. DVT prophylaxis. Incentive spirometer. Continue the rest of medications. Recommend close followup with Dr. Hester after discharge. Thank you, Dr. Liu. MMSETHL / SOUTHN: [id number] /
[2021-12-27] MEDS ORDERED: FUROSEMIDE 10 MG/ML 4 ML VIAL IV STA (16:19)
[2021-12-27 17:00] LABS: African American GFR (CKD) >90 (>60 ml/min/1.73 sqM); Anion Gap 0 mmol/L; Blood Urea Nitrogen 25 mg/dL (7-17); Carbon Dioxide 27 mmol/L (22-30); Chloride 106 mmol/L (98-107); Glucose 111 mg/dL (74-99); Non-African American GFR(CKD) 88 (>60 ml/min/1.73 sqM); Potassium 4.6 mmol/L (3.5-5.1); Sodium 133 mmol/L (137-145)
--- NOTE | 2021-12-27 17:39 | US ---
EXAMINATION TYPE: US renals and bladder DATE OF EXAM: 12/27/2021 COMPARISON: NONE CLINICAL HISTORY: low urine output. ICU patient. Patient had open abdomen surgery for Aortic Fem byp ass. EXAM MEASUREMENTS: Right Kidney: 9.0 x 4.0 x 3.7 cm Left Kidney: 11.2 x 4.9 x 6.1 cm Right Kidney: Mild hydronephrosis. FF seen adjacent to kidney. Left Kidney: Trace amount of free fluid seen adjacent to kidney. Hydronephrosis vs dilated renal pel vis. Bladder: slightly distended, scherer seen Bilateral Jets not seen due to scherer There is no evidence for hydronephrosis at this point in time. No nephrolithiasis is seen. No jesús s are identified. The urinary bladder is anechoic. Bilateral ureteral jets are seen. IMPRESSION: There is mild bilateral hydronephrosis. There is mild perinephric edema. No evidence of a renal mass. There is a Scherer catheter in the urinary bladder.
[2021-12-27] MEDS: HYDROcodone/APAP 5-325MG 1 EACH TAB PO PRN (20:05)
[2021-12-28] MEDS: HYDROcodone/APAP 5-325MG 1 EACH TAB PO PRN ×2 (02:33→21:37)
[2021-12-28 04:32] LABS: African American GFR (CKD) >90 (>60 ml/min/1.73 sqM); Anion Gap 1 mmol/L; Blood Urea Nitrogen 22 mg/dL (7-17); Calcium 8.2 mg/dL (8.4-10.2); Carbon Dioxide 31 mmol/L (22-30); Chloride 99 mmol/L (98-107); Glucose 106 mg/dL (74-99); Non-African American GFR(CKD) 87 (>60 ml/min/1.73 sqM); Potassium 3.7 mmol/L (3.5-5.1); Sodium 131 mmol/L (137-145)
[2021-12-28 04:56] LABS: HCT 20.1 % (34.0-46.0); Hypochromasia Slight; MCH 25.7 pg (25.0-35.0); MCHC 30.8 g/dL (31.0-37.0); MCV 83.4 fL (80.0-100.0); Mean Platelet Volume 8.3; Platelet Count 209 k/uL (150-450); RBC 2.41 m/uL (3.80-5.40); RDW 14.9 % (11.5-15.5); WBC 9.5 k/uL (3.8-10.6)
[2021-12-28] MEDS ORDERED: Potassium Replacement Protocol 1 EACH MISC MISCELLANE PRN (05:04)
[2021-12-28 05:14] LABS: HGB 6.2 gm/dL (11.4-16.0)
[2021-12-28] MEDS ORDERED: POTASSIUM BICARBONATE/CIT AC 20 MEQ TABLET.EFF NG-TUBE SCH (06:00)
[2021-12-28] MEDS: LOSARTAN 50 MG TAB PO SCH (08:34)
[2021-12-28] MEDS: CALCIUM CARB-VIT D 500 MG-5 MCG TAB PO SCH (08:34)
[2021-12-28] MEDS: PANTOPRAZOLE 40 MG/10 ML VIAL IVP SCH (08:34)
[2021-12-28] MEDS: amLODIPine 5 MG TAB PO SCH (08:34)
[2021-12-28] MEDS ORDERED: NON FORMULARY DRUG (Alendronate Sodium [Fosamax] 70 MG Tablet) PO SCH (09:00)
[2021-12-28] MEDS: MORPHINE SULFATE 2 MG/ML SYRINGE IV PRN ×2 (09:14→17:31)
[2021-12-28] MEDS: LACTATED RINGERS 1,000 ML IV SCH ×2 (11:27→23:48)
[2021-12-28] MEDS: HEPARIN SODIUM,PORCINE/PF 5,000 UNIT/0.5 ML SYRINGE SQ SCH ×3 (11:36→23:49)
[2021-12-28] MEDS: ASPIRIN 81 MG PO SCH (11:36)
--- NOTE | 2021-12-28 12:04 | P.PN ---
Subjective Progress Note Date: 12/28/21 Principal diagnosis: Status post aortobifemoral bypass surgery, postoperative day #2 This is a 76-year-old female with known history of peripheral vessel occlusive disease, patient had chronic claudications, patient had aortogram and Dopplers demonstrated I aortic iliac occlusive disease with reconstitution at the bilateral femoral arteries. The occlusion extends to the renal arteries, patient underwent today aortic bifemoral bypass, done by vascular surgery, postoperatively the patient was admitted to the ICU, and I was asked to see her on consultation. Patient is comfortable, hemodynamically stable, she is on 3 L nasal cannula O2 sats was 99%. Denies any shortness of breath denies any cough denies any chest pain, and she had distal pulses palpable by Doppler. No evidence of cyanosis in lower extremities and feet. Reevaluated today on 12/27/21, patient is doing well, she is on 2 L nasal cannula, IV fluid 0.9 normal saline 100 mL/h, denies any nausea vomiting s hortness of breath, denies any flatness, patient had her Bowman catheter removed yesterday, and there was only 1 80 mL of urine output overnight. Patient was given a fluid bolus, and her main IV fluid was increased. CBC today showed WBC count of 9.8 hemoglobin of 7.5 electrolytes are normal renal profile is normal, potassium was low being corrected, magnesium was low being corrected. Reevaluated today on 12/28/21, patient remains in the ICU, doing quite well. However her hemoglobin dropped and she is requiring a unit of packed RBCs ordered by vascular surgery earlier today. Patient had issues related to her urine output, she received multiple fluid boluses yesterday, and she wasn't improving much, hence she was given a dose of Lasix, and she diuresed almost 2 L of fluids. Patient has no specific symptoms today, she feels generally weak, otherwise she is relatively asymptomatic. Hemoglobin today is 6.2. Left was are normal renal profile is normal Objective - Vital Signs Vital signs: Vital Signs Temp 98.1 F 12/28/21 11:21 Pulse 94 12/28/21 11:21 Resp 16 12/28/21 11:21 BP 147/74 12/28/21 11:21 Pulse Ox 97 12/28/21 11:21 FiO2 Intake & Output 12/27/21 12/28/21 12/28/21 18:59 06:59 18:59 Intake Total 2800 2100 710 Output Total 820 1590 160 Balance 1980 510 550 Weight 55.2 kg Intake: IV 2700 900 300 Lactated Ringers 1,000 ml 300 @ 100 mls/hr IV .Q10H [facility] Rx#:[id number] Lactated Ringers 1,000 ml 1200 900 @ 60 mls/hr IV .[id number] [facility] Rx#:[id number] Sodium Chloride 0.9% 1, 1000 000 ml @ 999 mls/hr IV . Q1H1M [facility] Rx#:[id number] Sodium Chloride 0.9% 500 500 ml 500 ml @ 999 mls/hr IV .Q31M [facility] Rx#:[id number] Intake, IV Titration 100 1200 100 Amount Albumin Human 25% 50 ml 100 In Empty Bag 1 bag @ 50 mls/hr IVPB Q1H [facility] Rx#: [id number] Lactated Ringers 1,000 ml 1200 100 @ 100 mls/hr IV .Q10H [facility] Rx#:[id number] Blood Product 310 Rc As-1 Unit 310 [id number] Output: Urine 820 1590 160 Other: Voiding Method Indwelling Catheter Indwelling Catheter ABP, PAP, CO, CI - Last Documented Arterial Blood Pressure 213/44 - Exam Physical Exam: Revealed a 76-year-old female in no distress, on 3 L nasal cannula. Head: Atraumatic, normocephalic. HEENT:[Neck is supple.] [No neck masses.] [No thyromegaly.] [No JVD.] Chest: [Clear throughout, no crackles, no rhonchi, no wheezes.] Cardiac Exam: [Normal S1 and S2, no S3 gallop, no murmur.] Abdomen: [Soft, nontender, no megaly, no rebound, no guarding, normal bowel sounds.] Extremities: [No clubbing, no edema, no cyanosis.] Neurological Exam: [No focal neurologic deficit.] Alert oriented 3 Psychiatric: Normal mood affect and normal mental status examination. Skin: No rashes. - Labs CBC & Chem 7: 12/28/21 04:45 12/28/21 04:00 Labs: Abnormal Lab Results - Last 24 Hours (Table) 12/26/21 12/27/21 12/28/21 Range/Units 06:38 16:32 04:00 RBC (3.80-5.40) m/uL Hgb (11.4-16.0) gm/dL Hct (34.0-46.0) % MCHC (31.0-37.0) g/dL Sodium 133 L 131 L (137-145) mmol/L Carbon Dioxide 31 H (22-30) mmol/L BUN 25 H 22 H (7-17) mg/dL Glucose 111 H 106 H (74-99) mg/dL Calcium 8.0 L 8.2 L (8.4-10.2) mg/dL Crossmatch See Detail 12/28/21 Range/Units 04:45 RBC 2.41 L (3.80-5.40) m/uL Hgb 6.2 L* (11.4-16.0) gm/dL Hct 20.1 L (34.0-46.0) % MCHC 30.8 L (31.0-37.0) g/dL Sodium (137-145) mmol/L Carbon Dioxide (22-30) mmol/L BUN (7-17) mg/dL Glucose (74-99) mg/dL Calcium (8.4-10.2) mg/dL Crossmatch Assessment and Plan Assessment: Impression: Severe peripheral vessel occlusive disease, status post aortobifemoral bypass surgery. Postoperative day #2 Chronic claudications Nicotine dependence syndrome Hypertension Dyslipidemia Electrolytes imbalance, being corrected accordingly. Acute blood loss anemia on Chronic anemia, needs outpatient workup, if not already done, suspect acute blood loss anemia from surgery nonetheless the patient still needs workup and this is expected Recommendation: Transfusions with 1 unit of packed RBCs Continue to monitor in the ICU Continue present supportive care measures Continue incentive spirometry Titrate oxygen, maintaining O2 saturations of 91% Continue GI and DVT prophylaxis. Check Hemoccult We'll continue to follow Time with Patient: Less than 30
--- NOTE | 2021-12-28 12:14 | P.PN ---
Subjective Progress Note Date: 12/28/21 Patient seen and examined. Doing well overall without significant complaints. did not sleep well last night. Did take a good Nap getting her blood transfusion for her anemia. Adequate urine output with Bowman catheter. Objective - Vital Signs Vital signs: Vital Signs Temp 98.1 F 12/28/21 11:21 Pulse 94 12/28/21 11:21 Resp 16 12/28/21 11:21 BP 147/74 12/28/21 11:21 Pulse Ox 97 12/28/21 11:21 FiO2 Intake & Output 12/27/21 12/28/21 12/28/21 18:59 06:59 18:59 Intake Total 2800 2100 710 Output Total 820 1590 160 Balance 1980 510 550 Weight 55.2 kg Intake: IV 2700 900 300 Lactated Ringers 1,000 ml 300 @ 100 mls/hr IV .Q10H [facility] Rx#:[id number] Lactated Ringers 1,000 ml 1200 900 @ 60 mls/hr IV .[id number] [facility] Rx#:[id number] Sodium Chloride 0.9% 1, 1000 000 ml @ 999 mls/hr IV . Q1H1M [facility] Rx#:[id number] Sodium Chloride 0.9% 500 500 ml 500 ml @ 999 mls/hr IV .Q31M [facility] Rx#:[id number] Intake, IV Titration 100 1200 100 Amount Albumin Human 25% 50 ml 100 In Empty Bag 1 bag @ 50 mls/hr IVPB Q1H [facility] Rx#: [id number] Lactated Ringers 1,000 ml 1200 100 @ 100 mls/hr IV .Q10H [facility] Rx#:[id number] Blood Product 310 Rc As-1 Unit 310 [id number] Output: Urine 820 1590 160 Other: Voiding Method Indwelling Catheter Indwelling Catheter ABP, PAP, CO, CI - Last Documented Arterial Blood Pressure 213/44 - Exam Patient seen and examined no acute distress. NG tube in place. Poorly fitting dentures. Heart appears regular. Lungs are clear, diminished. Abdomen is soft. Mild incisional tenderness as expected. Wound VAC intact with adequate suction. Lower extremity are warm and dry. Palpable dorsalis pedis on the right. Multiphasic signals DP PT bilaterally. Moderate left lower extremity edema mild on the right - Labs CBC & Chem 7: 12/28/21 04:45 12/28/21 04:00 Labs: Abnormal Lab Results - Last 24 Hours (Table) 12/26/21 12/27/21 12/28/21 Range/Units 06:38 16:32 04:00 RBC (3.80-5.40) m/uL Hgb (11.4-16.0) gm/dL Hct (34.0-46.0) % MCHC (31.0-37.0) g/dL Sodium 133 L 131 L (137-145) mmol/L Carbon Dioxide 31 H (22-30) mmol/L BUN 25 H 22 H (7-17) mg/dL Glucose 111 H 106 H (74-99) mg/dL Calcium 8.0 L 8.2 L (8.4-10.2) mg/dL Crossmatch See Detail 12/28/21 Range/Units 04:45 RBC 2.41 L (3.80-5.40) m/uL Hgb 6.2 L* (11.4-16.0) gm/dL Hct 20.1 L (34.0-46.0) % MCHC 30.8 L (31.0-37.0) g/dL Sodium (137-145) mmol/L Carbon Dioxide (22-30) mmol/L BUN (7-17) mg/dL Glucose (74-99) mg/dL Calcium (8.4-10.2) mg/dL Crossmatch Assessment and Plan Assessment: Postoperative day #2 from aortobifemoral bypass, left femoral endarterectomy for aortoiliac occlusion Acute blood loss anemia, no evidence of active bleeding Decreased urine output -resolved Plan: Doing well overall, Continue NG tube to low intermittent suction until return of bowel function. May have ice chips and sips. May suck on hard candy. has transfuse 1 pack PRBC. Monitor labs. Increase activity.
[2021-12-28 14:50] LABS: Basophils % (A) 0 %; Eosinophils % (A) 0 %; HCT 25.8 % (34.0-46.0); Hypochromasia Slight; Lymphocytes # (A) 1.1 k/uL (1.0-4.8); Lymphocytes % (A) 10 %; MCH 27.8 pg (25.0-35.0); MCHC 32.6 g/dL (31.0-37.0); MCV 85.3 fL (80.0-100.0); Mean Platelet Volume 8.2; Monocytes # (A) 0.6 k/uL (0-1.0); Monocytes % (A) 6 %; Neutrophils # (A) 8.2 k/uL (1.3-7.7); Neutrophils % (A) 80 %; Platelet Count 206 k/uL (150-450); Poikilocytosis Slight; RBC 3.03 m/uL (3.80-5.40); RDW 14.9 % (11.5-15.5); WBC 10.3 k/uL (3.8-10.6)
[2021-12-28 15:16] LABS: HGB 8.4 gm/dL (11.4-16.0)
--- NOTE | 2021-12-28 15:23 | PN ---
PROGRESS NOTE DATE OF SERVICE: 12/28/2021 This 76-year-old woman who was admitted after vascular surgery has anemia today. The patient is being transfused one unit. No chest pain. No palpitations. No fever. The patient has an NG tube. PHYSICAL EXAMINATION: Pulse 89, blood pressure 120/60, respirations 17. HEENT: Conjunctivae pale. Oral mucosa CARDIOVASCULAR: S1, S2 muffled. RESPIRATION: Breath sounds diminished at the bases. ABDOMEN: Soft, nontender. NERVOUS SYSTEM: No focal deficit. LABS: Hemoglobin 6.2. Rest of the labs are noted. ASSESSMENT: 1. Status post aortobifemoral arterial bypass with left femoral endarterectomy for aortoiliac occlusion. 2. Anemia. 3. Hypertension. 4. Hyperlipidemia. 5. Multiple medical issues. RECOMMENDATIONS AND DISCUSSION: I recommend to continue current medications, continue with the monitoring, symptomatic treatment. One unit transfusion. Repeat labs in the morning. Closely follow with Vascular Surgery. Dr. Hester will follow tomorrow. MMSETHL / IJN: [id number] / [id number]
[2021-12-28] MEDS: ATORVASTATIN 80 MG TAB PO SCH (21:23)
[2021-12-29] MEDS: MORPHINE SULFATE 2 MG/ML SYRINGE IV PRN (03:47)
[2021-12-29 05:52] LABS: HCT 27.2 % (34.0-46.0); HGB 8.7 gm/dL (11.4-16.0); Hypochromasia Slight; MCH 27.2 pg (25.0-35.0); MCHC 32.1 g/dL (31.0-37.0); MCV 84.9 fL (80.0-100.0); Mean Platelet Volume 8.3; Platelet Count 219 k/uL (150-450); Poikilocytosis Slight; WBC 11.1 k/uL (3.8-10.6)
[2021-12-29 06:05] LABS: ALT 14 U/L (4-34); AST 20 U/L (14-36); African American GFR (CKD) >90 (>60 ml/min/1.73 sqM); Albumin 2.6 g/dL (3.5-5.0); Alkaline Phosphatase 71 U/L (38-126); Anion Gap 2 mmol/L; Blood Urea Nitrogen 21 mg/dL (7-17); Calcium 7.8 mg/dL (8.4-10.2); Carbon Dioxide 29 mmol/L (22-30); Chloride 101 mmol/L (98-107); Glucose 89 mg/dL (74-99); Non-African American GFR(CKD) 88 (>60 ml/min/1.73 sqM); Potassium 3.7 mmol/L (3.5-5.1); Sodium 132 mmol/L (137-145); Total Protein 4.7 g/dL (6.3-8.2)
[2021-12-29] MEDS ORDERED: Potassium Replacement Protocol 1 EACH MISC MISCELLANE PRN (06:36)
[2021-12-29] MEDS ORDERED: POTASSIUM BICARBONATE/CIT AC 20 MEQ TABLET.EFF NG-TUBE SCH (07:00)
[2021-12-29] MEDS: CALCIUM CARB-VIT D 500 MG-5 MCG TAB PO SCH (08:00)
[2021-12-29] MEDS: HEPARIN SODIUM,PORCINE/PF 5,000 UNIT/0.5 ML SYRINGE SQ SCH ×3 (08:00→23:55)
[2021-12-29] MEDS: LOSARTAN 50 MG TAB PO SCH (08:00)
[2021-12-29] MEDS: ASPIRIN 81 MG PO SCH (08:00)
[2021-12-29] MEDS: PANTOPRAZOLE 40 MG/10 ML VIAL IVP SCH (08:00)
[2021-12-29] MEDS: amLODIPine 5 MG TAB PO SCH (08:00)
[2021-12-29] MEDS ORDERED: BENZOCAINE/MENTHOL LOZENG 1 EACH LOZENGE MUCOUS MEM PRN (08:40)
--- NOTE | 2021-12-29 09:30 | P.PN ---
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 She states her pain is well managed. She states she feels like she is starting to pass flatus. She denies any nausea or vomiting. She does state that she has a little bit of a sore throat. She has not been up yet but states she's been up in the chair yesterday. She has not been ambulating within her room. Hemoglobin stable at 8.7. She is afebrile. NG tube remains in at low intermittent suction. Objective - Vital Signs Vital signs: Vital Signs Temp 98 F 12/29/21 08:00 Pulse 90 12/29/21 08:00 Resp 17 12/29/21 08:00 BP 147/63 12/29/21 08:00 Pulse Ox 89 L 12/29/21 08:00 FiO2 Intake & Output 12/28/21 12/29/21 12/29/21 18:59 06:59 18:59 Intake Total 1235 1050 135 Output Total 487 627 40 Balance 748 423 95 Weight 55.6 kg Intake: IV 825 1050 75 Lactated Ringers 1,000 ml 825 1050 75 @ 75 mls/hr IV .[id number] [facility] Rx#:[id number] Intake, IV Titration 100 Amount Lactated Ringers 1,000 ml 100 @ 75 mls/hr IV .[id number] [facility] Rx#:[id number] Blood Product 310 Rc As-1 Unit 310 [id number] Other 60 Output: Urine 487 627 40 Other: Voiding Method Indwelling Catheter Indwelling Catheter ABP, PAP, CO, CI - Last Documented Arterial Blood Pressure 213/44 - Exam General appearance: The patient is alert, oriented, appears in no acute distress. HET: Head is normocephalic and atraumatic. Pupils are equal and reactive. Neck: Supple without lymphadenopathy. Trachea midline. Heart: S1 S2. Regular rate and rhythm. Lungs: Clear to auscultation bilaterally. Abdomen: Soft, nontender, normal active bowel sounds, nondistended. Incision to abdomen with prevena dressing. Extremities: Normal skin color and turgor. Bilateral groins with Prevena dressing intact. Bilateral lower extremity edema. Palpable left dorsalis pedis. Multiphasic bilateral PT signal, and right DP signal. Neurological: No focal deficits. Strength and sensation are grossly intact. - Labs CBC & Chem 7: 12/29/21 05:25 12/29/21 05:25 Labs: Abnormal Lab Results - Last 24 Hours (Table) 12/26/21 12/28/21 12/29/21 Range/Units 06:38 14:20 05:25 WBC (3.8-10.6) k/uL RBC 3.03 L (3.80-5.40) m/uL Hgb 8.4 L D (11.4-16.0) gm/dL Hct 25.8 L (34.0-46.0) % Neutrophils # 8.2 H (1.3-7.7) k/uL Sodium 132 L (137-145) mmol/L BUN 21 H (7-17) mg/dL Calcium 7.8 L (8.4-10.2) mg/dL Total Protein 4.7 L (6.3-8.2) g/dL Albumin 2.6 L (3.5-5.0) g/dL Crossmatch See Detail 12/29/21 Range/Units 05:25 WBC 11.1 H (3.8-10.6) k/uL RBC 3.20 L (3.80-5.40) m/uL Hgb 8.7 L (11.4-16.0) gm/dL Hct 27.2 L (34.0-46.0) % Neutrophils # (1.3-7.7) k/uL Sodium (137-145) mmol/L BUN (7-17) mg/dL Calcium (8.4-10.2) mg/dL Total Protein (6.3-8.2) g/dL Albumin (3.5-5.0) g/dL Crossmatch Assessment and Plan Assessment: 1. Postoperative day #3 from aortobifemoral bypass, left femoral endarterectomy for aortoiliac occlusion 2. Acute blood loss anemia, no evidence of active bleeding 3. Decreased urine output -resolved Plan: 1. Order Cepacol lozenges 2. Encourage ambulation 3. Clamp NG tube. 4. Patient may have clear liquid diet 5. Continue with incentive spirometer 6. Continue Prevena dressing 7. Further recommendations forthcoming per vascular surgeon The impression and plan of care has been dictated as directed. I performed a history and examination of this patient, discussed the same with the dictator. I agree with the dictator's note ,documented as a scribe. Any additional findings or plans will be noted. Ok to be transferred out of ICU
[2021-12-29] MEDS: LACTATED RINGERS 1,000 ML IV SCH ×2 (10:29→23:56)
[2021-12-29] MEDS: HYDROcodone/APAP 5-325MG 1 EACH TAB PO PRN ×2 (11:02→23:57)
--- NOTE | 2021-12-29 11:10 | P.PN ---
Subjective Progress Note Date: 12/29/21 Principal diagnosis: Hypotension, anemia. Status post aortobifemoral bypass surgery, postoperative day #2 This is a 76-year-old female with known history of peripheral vessel occlusive disease, patient had chronic claudications, patient had aortogram and Dopplers demonstrated I aortic iliac occlusive disease with reconstitution at the bilateral femoral arteries. The occlusion extends to the renal arteries, patient underwent today aortic bifemoral bypass, done by vascular surgery, postoperatively the patient was admitted to the ICU, and I was asked to see her on consultation. Patient is comfortable, hemodynamically stable, she is on 3 L nasal cannula O2 sats was 99%. Denies any shortness of breath denies any cough denies any chest pain, and she had distal pulses palpable by Doppler. No evidence of cyanosis in lower extremities and feet. Reevaluated today on 12/27/21, patient is doing well, she is on 2 L nasal cannula, IV fluid 0.9 normal saline 100 mL/h, denies any nausea vomiting shortness of breath, denies any flatness, patient had her Bowman catheter removed yesterday, and there was only 1 80 mL of urine output overnight. Patient was given a fluid bolus, and her main IV fluid was increased. CBC today showed WBC count of 9.8 hemoglobin of 7.5 electrolytes are normal renal profile is normal, potassium was low being corrected, magnesium was low being corrected. Reevaluated today on 12/28/21, patient remains in the ICU, doing quite well. However her hemoglobin dropped and she is requiring a unit of packed RBCs ordered by vascular surgery earlier today. Patient had issues related to her urine output, she received multiple fluid boluses yesterday, and she wasn't improving much, hence she was given a dose of Lasix, and she diuresed almost 2 L of fluids. Patient has no specific symptoms today, she feels generally weak, otherwise she is relatively asymptomatic. Hemoglobin today is 6.2. Left was are normal renal profile is normal Progress note dated 12/29/2021. This is a 76-year-old female was admitted on December 26 for a aortobifem bypass. The patient is postop day #3. Currently, she is on room air. NG tube is still in place. She's getting lactated Ringer's at 75 mL an hour. She was anemic, but today's hemoglobin is up to 8.7. She also had some transient hypotension, but her blood pressures much better controlled. White count 11.1, hemoglobin 8.7, hematocrit 27.2, and platelet count is normal. Sodium 132, potassium 3.7, chlorides 101, CO2 29, BUN 21, creatinine 0.62. Albumin is 2.6. No chest x-ray today. Objective - Vital Signs Vital signs: Vital Signs Temp 98 F 12/29/21 08:00 Pulse 89 12/29/21 10:00 Resp 15 12/29/21 10:00 BP 151/64 12/29/21 10:00 Pulse Ox 88 L 12/29/21 10:00 FiO2 Intake & Output 12/28/21 12/29/21 12/29/21 18:59 06:59 18:59 Intake Total 1235 1050 285 Output Total 487 627 100 Balance 748 423 185 Weight 55.6 kg Intake: IV 825 1050 225 Lactated Ringers 1,000 ml 825 1050 225 @ 75 mls/hr IV .[id number] [facility] Rx#:[id number] Intake, IV Titration 100 Amount Lactated Ringers 1,000 ml 100 @ 75 mls/hr IV .[id number] [facility] Rx#:[id number] Blood Product 310 Rc As-1 Unit 310 [id number] Other 60 Output: Urine 487 627 100 Other: Voiding Method Indwelling Catheter Indwelling Catheter Indwelling Catheter ABP, PAP, CO, CI - Last Documented Arterial Blood Pressure 213/44 - Exam No acute distress, oriented 3. NG tube in place. Currently on room air. HEENT examination is grossly unremarkable. Neck supple. Full range of motion. No adenopathy thyromegaly or neck vein distention. Cardiovascular examination reveals regular rhythm rate. S1-S2 normal. No S3 or S4. No discernible murmur noted. Heart rate 92 bpm. Lungs reveal clear breath sounds. Breath sounds are equal bilaterally. No adventitious lung sounds including wheezes rhonchi or crackles. Saturations 88- 90% on room air. Abdomen soft bowel sounds are heard. No masses or tenderness. Extremities are intact. No cyanosis clubbing or edema. Skin is without rash or lesion. Neurologic examination is brief but nonfocal. - Labs CBC & Chem 7: 12/29/21 05:25 12/29/21 05:25 Labs: Abnormal Lab Results - Last 24 Hours (Table) 12/26/21 12/28/21 12/29/21 Range/Units 06:38 14:20 05:25 WBC (3.8-10.6) k/uL RBC 3.03 L (3.80-5.40) m/uL Hgb 8.4 L D (11.4-16.0) gm/dL Hct 25.8 L (34.0-46.0) % Neutrophils # 8.2 H (1.3-7.7) k/uL Sodium 132 L (137-145) mmol/L BUN 21 H (7-17) mg/dL Calcium 7.8 L (8.4-10.2) mg/dL Total Protein 4.7 L (6.3-8.2) g/dL Albumin 2.6 L (3.5-5.0) g/dL Crossmatch See Detail 12/29/21 Range/Units 05:25 WBC 11.1 H (3.8-10.6) k/uL RBC 3.20 L (3.80-5.40) m/uL Hgb 8.7 L (11.4-16.0) gm/dL Hct 27.2 L (34.0-46.0) % Neutrophils # (1.3-7.7) k/uL Sodium (137-145) mmol/L BUN (7-17) mg/dL Calcium (8.4-10.2) mg/dL Total Protein (6.3-8.2) g/dL Albumin (3.5-5.0) g/dL Crossmatch Assessment and Plan Assessment: Postop day #3, status post aortobifemoral bypass, for severe peripheral vascular occlusive disease. History of chronic claudication. Nicotine dependence syndrome, rule out COPD. History of hypertension. History of hyperlipidemia. Acute blood loss anemia, improved. Plan: Plan dated 12/29/2021. The patient did receive a unit of blood. Today's hemoglobin is 8.7. The patient remains on room air. She does likely have underlying COPD from previous heavy tobacco use. We recommend hourly use of the incentive spirometer. I believe things will improve once her NG tube comes out. Continue GI and DVT prophylaxis. The patient has a stable blood pressure. The patient could be transferred out of the intensive care unit. Time with Patient: Less than 30
--- NOTE | 2021-12-29 14:14 | P.PN ---
Subjective Progress Note Date: 12/29/21 This is a 76-year-old female status post aortobifemoral arterial bypass with left femoral endarterectomy for aortoiliac occlusion, anemia and multiple other medical issues. Transfuse 1 unit of packed RBCs yesterday, hemoglobin increased 8.7. Continues on IV fluid hydration of LR at 75 MLS an hour. NG tube to LIS. Passing flatus. Denies chest pain, palpitations or increased shortness of breath. Telemetry sinus tachycardia. Sodium 142. Renal function stable. Maintaining O2 sats in the low 90s on room air. Objective - Vital Signs Vital signs: Vital Signs Temp 98 F 12/29/21 12:00 Pulse 95 12/29/21 12:00 Resp 14 12/29/21 12:00 BP 140/63 12/29/21 12:00 Pulse Ox 96 12/29/21 12:00 FiO2 Intake & Output 12/28/21 12/29/21 12/29/21 18:59 06:59 18:59 Intake Total 1235 1050 495 Output Total 487 627 172 Balance 748 423 323 Weight 55.6 kg Intake: IV 825 1050 375 Lactated Ringers 1,000 ml 825 1050 375 @ 75 mls/hr IV .[id number] [facility] Rx#:[id number] Intake, IV Titration 100 Amount Lactated Ringers 1,000 ml 100 @ 75 mls/hr IV .[id number] [facility] Rx#:[id number] Blood Product 310 Rc As-1 Unit 310 [id number] Other 120 Output: Urine 487 627 172 Other: Voiding Method Indwelling Catheter Indwelling Catheter Indwelling Catheter ABP, PAP, CO, CI - Last Documented Arterial Blood Pressure 213/44 - Exam PHYSICAL EXAM: VITAL SIGNS: [As above] GENERAL: Sitting up in bed, no acute distress. HEENT: Conjunctivae normal. eyes normal. NG tube present NECK: Supple, No JVD. CARDIOVASCULAR: S1, S2 regular, tachycardic, No murmur RESPIRATION: Breath sounds diminished in the bases. No rhonchi or crackles. ABDOMEN: Soft, status post surgery, prevana dressing present.No guarding. EXTREMITIES: Bilateral groins with Prevena Dressing present.Bilateral lower extremites warm, palpable left DP/Doppler right DP. PSYCHIATRY: Alert and oriented X3, mood and affect normal. NERVOUS SYSTEM: Cranial N 2-12 grossly normal.No focal deficit. Strength and sensation grossly intact. Skin: Warm and dry, no rash - Labs CBC & Chem 7: 12/29/21 05:25 12/29/21 05:25 Labs: Abnormal Lab Results - Last 24 Hours (Table) 12/28/21 12/29/21 12/29/21 Range/Units 14:20 05:25 05:25 WBC 11.1 H (3.8-10.6) k/uL RBC 3.03 L 3.20 L (3.80-5.40) m/uL Hgb 8.4 L D 8.7 L (11.4-16.0) gm/dL Hct 25.8 L 27.2 L (34.0-46.0) % Neutrophils # 8.2 H (1.3-7.7) k/uL Sodium 132 L (137-145) mmol/L BUN 21 H (7-17) mg/dL Calcium 7.8 L (8.4-10.2) mg/dL Total Protein 4.7 L (6.3-8.2) g/dL Albumin 2.6 L (3.5-5.0) g/dL Assessment and Plan Assessment: Aortoiliac occlusion, Status post aortobifemoral arterial bypass left femoral endarterectomy, the patient with history of chronic claudication Acute blood loss Anemia Extensive nicotine dependence, has smoked one pack per day since the age of 13 Protein calorie malnutrition, BMI 16 COPD Hypertension Hyperlipidemia Plan: Continue on current medication regime ,monitoring and symptomatic treatment. Aggressive pulmonary toileting with incentive spirometer reinforced. Increase ambulation as tolerated. Pain management. The impression and plan of care has been dictated as directed. : I performed a history and examination of this patient, discussed the same with the dictator. I agree with the dictator's note ,documented as a scribe. Any additional findings or plans will be noted.
[2021-12-29] MEDS: ATORVASTATIN 80 MG TAB PO SCH (20:40)
[2021-12-30 06:05] LABS: Basophils % (A) 0 %; Eosinophils # (A) 0.1 k/uL (0-0.7); Eosinophils % (A) 1 %; HGB 8.3 gm/dL (11.4-16.0); Hypochromasia Slight; Lymphocytes % (A) 12 %; MCHC 31.9 g/dL (31.0-37.0); MCV 84.6 fL (80.0-100.0); Mean Platelet Volume 8.2; Monocytes # (A) 0.6 k/uL (0-1.0); Monocytes % (A) 7 %; Neutrophils # (A) 6.7 k/uL (1.3-7.7); Neutrophils % (A) 76 %; Platelet Count 224 k/uL (150-450); RBC 3.07 m/uL (3.80-5.40); RDW 15.3 % (11.5-15.5); WBC 8.8 k/uL (3.8-10.6)
[2021-12-30 06:07] LABS: African American GFR (CKD) >90 (>60 ml/min/1.73 sqM); Anion Gap 3 mmol/L; Blood Urea Nitrogen 24 mg/dL (7-17); Calcium 7.5 mg/dL (8.4-10.2); Carbon Dioxide 28 mmol/L (22-30); Chloride 99 mmol/L (98-107); Glucose 86 mg/dL (74-99); Non-African American GFR(CKD) 89 (>60 ml/min/1.73 sqM); Potassium 3.7 mmol/L (3.5-5.1); Sodium 130 mmol/L (137-145)
[2021-12-30] MEDS ORDERED: SODIUM CHLORIDE 0.9% 500 ML 250 ML IV ONE (07:13)
[2021-12-30] MEDS: PANTOPRAZOLE 40 MG/10 ML VIAL IVP SCH (08:39)
[2021-12-30] MEDS: ASPIRIN 81 MG PO SCH (08:39)
[2021-12-30] MEDS: amLODIPine 5 MG TAB PO SCH (08:39)
[2021-12-30] MEDS: CALCIUM CARB-VIT D 500 MG-5 MCG TAB PO SCH (08:39)
[2021-12-30] MEDS: HEPARIN SODIUM,PORCINE/PF 5,000 UNIT/0.5 ML SYRINGE SQ SCH ×3 (08:39→23:31)
[2021-12-30] MEDS: LOSARTAN 50 MG TAB PO SCH (08:39)
--- NOTE | 2021-12-30 09:42 | CDI ---
Documentation Clarification Form Date: 12/30/2021 09:26:20 AM From: Idalia Macias CCS, CCDS Admit Date: 12/26/2021 05:49:00 AM Patient Name: Amanda Meraz Visit Number: [id number] Discharge Date: ATTENTION: The Clinical Documentation Specialists (CDI) and [facility] Coding Staff appreciate your assistance in clarifying documentation. Please respond to the clarification below the line at the bottom and electronically sign. The CDI & [facility] Coding staff will review the response and follow-up if needed. Please note: Queries are made part of the Legal Health Record. If you have any questions, please contact the author of this message via ITS. Dr. Ramo Hester: Protein Calorie malnutrition, BMI 16 is documented in the 12/29 Medical Management Progress Note without further specified severity. Additional clarification regarding the severity of Malnutrition is requested. History/Risk Factors per the 12/26 Vascular Surgeon's History & Physical: Aorto- iliac occlusive Disease, COPD, Hyperlipidemia, Hypertension, Osteoarthritis, Osteoporosis, Former smoker. Clinical Indicators: Presented 12/26 for Elective Procedure for diagnosis of Aorto-iliac occlusion with rest pain. Procedure: Dpoye-Te-Oyiqfap artery bypass with gore PTFE graft, left femoral artery endarterectomy. Per the 12/29 Medical Management Progress Note: BMI is 16. Per the current Bedscale BMI: 22.2 12/26: 25% of diet consumed, then npo on 12/27. 12/28: Ice chips/npo. 12/29: 50-100% meals consumed, has NGT 12/30 NGT discontinued, 61.5 kg bedscale. Treatment 12/26: Blood glucose monitoring, Incentive Spirometry, Neurological assessment, IV Cefazolin 50 mls @ 100 mls/hr x1, IV Decadron 4 mg x1, IV Dilaudid 0.5 mg q5M/prn, IV Lactated Ringers 1,000 mls @ 20 mls/hr q24H, IV Zofran 4 mg x1, IV Fentanyl Citrate 50 mcg x1, IV Versed 1 mg, IV Morphine 2 mg q2H/prn, IV Acetaminophen 1,000 mg 100 mls @ 400 mls/hr x1, IV Mag Sulfate/Dextrose 100 mls @ 100 mls/hr q1H Dietitian is not consulted. Please clarify the type of malnutrition, if known: [ ] Mild Protein-Calorie Malnutrition [X ] Moderate Protein-Calorie Malnutrition [ ] Severe Protein-Calorie Malnutrition [ ] Malnutrition is ruled out [ ] Other condition, please specify [ ] Unable to Determine (Template Last Revised: July 2020) MTDD
--- NOTE | 2021-12-30 10:02 | P.PN ---
Subjective Progress Note Date: 12/30/21 Principal diagnosis: Hypotension, anemia. Status post aortobifemoral bypass surgery, postoperative day #2 This is a 76-year-old female with known history of peripheral vessel occlusive disease, patient had chronic claudications, patient had aortogram and Dopplers demonstrated I aortic iliac occlusive disease with reconstitution at the bilateral femoral arteries. The occlusion extends to the renal arteries, patient underwent today aortic bifemoral bypass, done by vascular surgery, postoperatively the patient was admitted to the ICU, and I was asked to see her on consultation. Patient is comfortable, hemodynamically stable, she is on 3 L nasal cannula O2 sats was 99%. Denies any shortness of breath denies any cough denies any chest pain, and she had distal pulses palpable by Doppler. No evidence of cyanosis in lower extremities and feet. Reevaluated today on 12/27/21, patient is doing well, she is on 2 L nasal cannula, IV fluid 0.9 normal saline 100 mL/h, denies any nausea vomiting shortness of breath, denies any flatness, patient had her Bowman catheter removed yesterday, and there was only 1 80 mL of urine output overnight. Patient was given a fluid bolus, and her main IV fluid was increased. CBC today showed WBC count of 9.8 hemoglobin of 7.5 electrolytes are normal renal profile is normal, potassium was low being corrected, magnesium was low being corrected. Reevaluated today on 12/28/21, patient remains in the ICU, doing quite well. However her hemoglobin dropped and she is requiring a unit of packed RBCs ordered by vascular surgery earlier today. Patient had issues related to her urine output, she received multiple fluid boluses yesterday, and she wasn't improving much, hence she was given a dose of Lasix, and she diuresed almost 2 L of fluids. Patient has no specific symptoms today, she feels generally weak, otherwise she is relatively asymptomatic. Hemoglobin today is 6.2. Left was are normal renal profile is normal Progress note dated 12/29/2021. This is a 76-year-old female was admitted on December 26 for a aortobifem bypass. The patient is postop day #3. Currently, she is on room air. NG tube is still in place. She's getting lactated Ringer's at 75 mL an hour. She was anemic, but today's hemoglobin is up to 8.7. She also had some transient hypotension, but her blood pressures much better controlled. White count 11.1, hemoglobin 8.7, hematocrit 27.2, and platelet count is normal. Sodium 132, potassium 3.7, chlorides 101, CO2 29, BUN 21, creatinine 0.62. Albumin is 2.6. No chest x-ray today. Progress note dated 12/30/2021. 76-year-old female was admitted on December 26 for aortobifemoral bypass. The patient is postop day #4. She's getting a NG-tube in place. She is on either room air or 2 L nasal cannula. She's getting lactated Ringer's at 75 mL an hour. She apparently is an overflow patient. I believe she stable enough to go to the general medical floor, with telemetry. She has no complaints today. She likely has some underlying COPD from previous heavy tobacco use. White count 8.8, hemoglobin 8.3, hematocrit 26.0, and platelet count 224,000. Sodium 1:30, potassium 3.7, chlorides 99, CO2 28, BUN of 24, and creatinine 0.59. Objective - Vital Signs Vital signs: Vital Signs Temp 97.9 F 12/30/21 08:00 Pulse 86 12/30/21 08:00 Resp 12 12/30/21 08:00 BP 135/90 12/30/21 08:00 Pulse Ox 92 L 12/30/21 08:00 FiO2 Intake & Output 12/29/21 12/30/21 12/30/21 18:59 06:59 18:59 Intake Total 1565 225 150 Output Total 255 50 Balance 1310 175 150 Weight 61.5 kg Intake: IV 825 225 150 Lactated Ringers 1,000 ml 825 225 150 @ 75 mls/hr IV .[id number] [facility] Rx#:[id number] Oral 620 Other 120 Output: Urine 230 50 Stool 25 Other: Voiding Method Indwelling Catheter Bedside Commode # Voids 1 1 # Bowel Movements 1 ABP, PAP, CO, CI - Last Documented Arterial Blood Pressure 213/44 - Exam No acute distress, oriented 3. NG tube in place. Currently on room air. Saturations are 92%. HEENT examination is grossly unremarkable. Neck supple. Full range of motion. No adenopathy thyromegaly or neck vein distention. Cardiovascular examination reveals regular rhythm rate. S1-S2 normal. No S3 or S4. No discernible murmur noted. Heart rate 86 bpm. Lungs reveal clear breath sounds. Breath sounds are equal bilaterally. No adventitious lung sounds including wheezes rhonchi or crackles. Abdomen soft bowel sounds are heard. No masses or tenderness. Extremities are intact. No cyanosis clubbing or edema. Skin is without rash or lesion. Neurologic examination is brief but nonfocal. - Labs CBC & Chem 7: 12/30/21 05:35 12/30/21 05:35 Labs: Abnormal Lab Results - Last 24 Hours (Table) 12/30/21 12/30/21 Range/Units 05:35 05:35 RBC 3.07 L (3.80-5.40) m/uL Hgb 8.3 L (11.4-16.0) gm/dL Hct 26.0 L (34.0-46.0) % Sodium 130 L (137-145) mmol/L BUN 24 H (7-17) mg/dL Calcium 7.5 L (8.4-10.2) mg/dL Assessment and Plan Assessment: Postop day #4, status post aortobifemoral bypass, for severe peripheral vascular occlusive disease. History of chronic claudication. Nicotine dependence syndrome, rule out COPD. History of hypertension. History of hyperlipidemia. Acute blood loss anemia, improved. Plan: Plan dated 12/29/2021. The patient did receive a unit of blood. Today's hemoglobin is 8.7. The patient remains on room air. She does likely have underlying COPD from previous heavy tobacco use. We recommend hourly use of the incentive spirometer. I believe things will improve once her NG tube comes out. Continue GI and DVT prophylaxis. The patient has a stable blood pressure. The patient could be transferred out of the intensive care unit. Plan dated 12/30/2021. The patient is very stable. The patient's labs, x-rays, and medications are reviewed. She is either on room air, or 1-2 L. NG tube is still in place. We believe the patient likely has some underlying COPD. We do recommend hourly use of the incentive spirometer. Continue GI and DVT prophylaxis. The patient could be transferred out of the intensive care unit, to the general medical floor. Time with Patient: Less than 30
--- NOTE | 2021-12-30 11:42 | P.PN ---
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 She states her pain is well managed. She had 2 small loose bowel movements yesterday. NG tube has been in place and clamped. She is tolerating clear liquid diet. She has been up to the chair and ambulating within the room. Bowman catheter was discontinued yesterday, she has bleeding however having decreased output. IV fluids continued. She is afebrile. Denies any nausea or vomiting, or abdominal pain. WBC 8.8 hemoglobin 8.3, sodium 1:30 potassium 3.7 BUN 24 creatinine 0.59 Objective - Vital Signs Vital signs: Vital Signs Temp 98.1 F 12/30/21 04:00 Pulse 90 12/30/21 07:00 Resp 16 12/30/21 07:00 BP 147/62 12/30/21 07:00 Pulse Ox 97 12/30/21 04:00 FiO2 Intake & Output 12/29/21 12/30/21 12/30/21 18:59 06:59 18:59 Intake Total 1565 225 Output Total 255 50 Balance 1310 175 Weight 61.5 kg Intake: IV 825 225 Lactated Ringers 1,000 ml 825 225 @ 75 mls/hr IV .[id number] [facility] Rx#:[id number] Oral 620 Other 120 Output: Urine 230 50 Stool 25 Other: Voiding Method Indwelling Catheter Bedside Commode # Voids 1 1 # Bowel Movements 1 ABP, PAP, CO, CI - Last Documented Arterial Blood Pressure 213/44 - Exam General appearance: The patient is alert, oriented, appears in no acute distress. HET: Head is normocephalic and atraumatic. Pupils are equal and reactive. Neck: Supple without lymphadenopathy. Trachea midline. Heart: S1 S2. Regular rate and rhythm. Lungs: Clear to auscultation bilaterally. Abdomen: Soft, nontender, normal active bowel sounds, nondistended. Incision to abdomen with prevena dressing. Extremities: Normal skin color and turgor. Bilateral groins with Prevena dressing intact. Bilateral lower extremity edema. Palpable left dorsalis pedis. Multiphasic bilateral PT signal, and right DP signal. Neurological: No focal deficits. Strength and sensation are grossly intact. - Labs CBC & Chem 7: 12/30/21 05:35 12/30/21 05:35 Labs: Abnormal Lab Results - Last 24 Hours (Table) 12/30/21 12/30/21 Range/Units 05:35 05:35 RBC 3.07 L (3.80-5.40) m/uL Hgb 8.3 L (11.4-16.0) gm/dL Hct 26.0 L (34.0-46.0) % Sodium 130 L (137-145) mmol/L BUN 24 H (7-17) mg/dL Calcium 7.5 L (8.4-10.2) mg/dL Assessment and Plan Assessment: 1. Postoperative day #4 from aortobifemoral bypass, left femoral endarterectomy for aortoiliac occlusion 2. Acute blood loss anemia, no evidence of active bleeding 3. Decreased urine output Plan: 1. Discontinue NG tube 2. Encourage ambulation 3. Advanced to full liquid diet for lunch, regular diet for dinner 4. Daily CBC, BMP 5. Continue with incentive spirometer 6. Continue Prevena dressing 7. Patient may be transferred to medical/surgical floor with telemetry 8. Plan will be for discharge home with home care services, [facility] set up from vascular surgical office the next 24 hours The impression and plan of care has been dictated as directed. I performed a history and examination of this patient, discussed the same with the dictator. I agree with the dictator's note ,documented as a scribe. Any additional findings or plans will be noted.
[2021-12-30] MEDS: LACTATED RINGERS 1,000 ML IV SCH (13:18)
[2021-12-30] MEDS: HYDROcodone/APAP 5-325MG 1 EACH TAB PO PRN ×2 (13:34→19:54)
[2021-12-30] MEDS: ATORVASTATIN 80 MG TAB PO SCH (19:55)
[2021-12-30 20:32] VITALS: RESP 16
[2021-12-31 06:50] LABS: African American GFR (CKD) >90 (>60 ml/min/1.73 sqM); Anion Gap 3 mmol/L; Blood Urea Nitrogen 17 mg/dL (7-17); Calcium 7.2 mg/dL (8.4-10.2); Carbon Dioxide 28 mmol/L (22-30); Chloride 98 mmol/L (98-107); Glucose 94 mg/dL (74-99); Non-African American GFR(CKD) >90 (>60 ml/min/1.73 sqM); Potassium 3.5 mmol/L (3.5-5.1); Sodium 129 mmol/L (137-145)
[2021-12-31] MEDS: LACTATED RINGERS 1,000 ML IV SCH ×2 (07:46→12:20)
[2021-12-31 09:17] LABS: Basophils # (A) 0.01 X 10*3/uL (0.00-0.10); Basophils % (A) 0.1 %; Eosinophils # (A) 0.15 X 10*3/uL (0.04-0.35); Eosinophils % (A) 1.9 %; HCT 24.1 % (37.2-46.3); HGB 7.5 g/dL (12.0-15.0); Immature Grans, Automated 0.6 %; Lymphocytes # (A) 1.15 X 10*3/uL (0.90-5.00); Lymphocytes % (A) 14.6 %; MCHC 31.1 g/dL (32.0-37.0); MCV 83.4 fL (80.0-97.0); Mean Platelet Volume 10.6 fL (9.5-12.2); Monocytes # (A) 0.84 X 10*3/uL (0.20-1.00); Monocytes % (A) 10.7 %; NRBC Per 100 WBC 0 /100 WBCS (0.0-0.0); Neutrophils # (A) 5.68 X 10*3/uL (1.80-7.70); Neutrophils % (A) 72.1 %; Platelet Count 265 X 10*3/uL (140-440); RBC 2.89 X 10*6/uL (4.10-5.20); WBC 7.88 X 10*3/uL (4.50-10.00)
[2021-12-31] MEDS: HEPARIN SODIUM,PORCINE/PF 5,000 UNIT/0.5 ML SYRINGE SQ SCH (09:40)
[2021-12-31] MEDS: CALCIUM CARB-VIT D 500 MG-5 MCG TAB PO SCH (09:40)
[2021-12-31] MEDS: amLODIPine 5 MG TAB PO SCH (09:40)
[2021-12-31] MEDS: PANTOPRAZOLE 40 MG/10 ML VIAL IVP SCH (09:40)
[2021-12-31] MEDS: LOSARTAN 50 MG TAB PO SCH (09:40)
[2021-12-31] MEDS: ASPIRIN 81 MG PO SCH (09:40)
[2021-12-31] MEDS ORDERED: Magnesium Replacement Protocol 1 EACH MISC MISCELLANE PRN (11:32)
[2021-12-31] MEDS ORDERED: POTASSIUM CHLORIDE ER 20 MEQ TAB.ER PO STA (11:33)
[2021-12-31 11:43] VITALS: BP 125/57; PULSE 97; TEMP 98.3
--- NOTE | 2021-12-31 12:48 | P.DS ---
Providers Date of admission: 12/26/21 05:49 Expected date of discharge: 12/31/21 Attending physician: Michael Liu DO Consults: 12/26/21 12:42 Consult Physician Routine Consulting Provider: Ramo Hester Consult Reason/Comments: medical management Do you want consulting provider notified?: Yes 12/26/21 14:05 Consult Physician Routine Consulting Provider: Fitz Fung Reason/Comments: icu management Do you want consulting provider notified?: Yes Primary care physician: Ramo Hester [facility] Course: 76-year-old female with a history of claudication and rest pain who was scheduled for aortobifemoral bypass after patient had outpatient workup with aortogram and Dopplers demonstrating aorto iliac occlusive disease with reconstitution at the bilateral femoral arteries. Patient had prior medical and cardiac clearance for surgery. She underwent aorto by femoral artery bypass with [place] PTFE graft and left femoral artery endarterectomy on 12/26/2021. Patient was initially admitted to the ICU for close observation. Patient had NG tube in place status post surgery. NG tube was discontinued yesterday and patient was started on a regular diet. She had some decreased urine output initially however urine output has improved. Patient also had a postsurgical drop in her hemoglobin to 6.2. She was transfused with 1 unit of blood. Hemoglobin has been stable, had a slight drop today to 7.5. No signs or symptoms of bleeding. She's been afebrile. She's been up and ambulating. Prevena dressings in place along abdomen and groins. Pain improved to lower extremities. She has full range of motion. She has had 3 bowel movements since surgery. She is tolerating a regular diet. Denies any shortness of breath, chest pain, abdominal pain, nausea or vomiting. Exam: eneral appearance: The patient is alert, oriented, appears in no acute distress. HET: Head is normocephalic and atraumatic. Pupils are equal and reactive. Neck: Supple without lymphadenopathy. Trachea midline. Heart: S1 S2. Regular rate and rhythm. Lungs: Clear to auscultation bilaterally. Abdomen: Soft, nontender, normal active bowel sounds, nondistended. Incision to abdomen with prevena dressing. Extremities: Normal skin color and turgor. Bilateral groins with Prevena dressing intact. Bilateral lower extremity edema. Palpable left dorsalis pedis. Multiphasic bilateral PT signal, and right DP signal. Neurological: No focal deficits. Strength and sensation are grossly intact. Procedures: 1. Tfiok-[id number]-[id number] artery bypass with [place] PTFE graft 2. Left femoral artery endarterectomy Patient Condition at Discharge: Stable Plan - Discharge Summary Discharge Rx Participant: No New Discharge Prescriptions: New amLODIPine [Norvasc] 5 mg PO DAILY #30 tab Continue Aspirin 81 mg PO DAILY Alendronate Sodium [Fosamax] 70 mg PO TREJO Calcium Carbonate/Vitamin D3 [Calcium 600 mg-D3 10 Mcg (400 Iu)] 1 cap PO DAILY Losartan [Cozaar] 50 mg PO DAILY #30 tab Atorvastatin [Lipitor] 80 mg PO HS Discharge Medication List Alendronate Sodium [Fosamax] 70 mg PO TREJO 09/29/21 [History] Aspirin 81 mg PO DAILY 09/29/21 [History] Calcium Carbonate/Vitamin D3 [Calcium 600 mg-D3 10 Mcg (400 Iu)] 1 cap PO DAILY 09/29/21 [History] Losartan [Cozaar] 50 mg PO DAILY #30 tab 10/02/21 [Rx] Atorvastatin [Lipitor] 80 mg PO HS 12/25/21 [History] amLODIPine [Norvasc] 5 mg PO DAILY #30 tab 12/31/21 [Rx] Follow up Appointment(s)/Referral(s): Ramo Hester DO [Primary Care Provider] - 1 Week [facility] [NON-STAFF] - 1-2 Days Michael Liu DO [STAFF PHYSICIAN] - 1 Week Ambulatory/Diagnostic Orders: Complete Blood Count w/diff [LAB.AMB] Time Frame: 3 Days, Location: None Selected Patient Instructions/Handouts: Aortofemoral Bypass (DC) Activity/Diet/Wound Care/Special Instructions: No driving until cleared by vascular surgeon. Avoid heavy lifting greater than 10 lbs , pushing, pulling, straining, flights of stairs for three days. Sponge bath only. No shower while wound VAC in place. Once wound VAC is removed you may shower however no tub bathing or soaking. signs of infection ie: fever, rash, drainage from puncture site, swelling contact doctor or return to ER immediately. Heavy bleeding from surgical site apply firm direct pressure and return to ER. Do not attempt to drive self. low sodium/low fat diet Continue smoking cessation Remove Prevena dressing and discard 0n 8/5/22. Discharge Disposition: HOME WITH HOME HEALTH SERVICES
--- NOTE | 2021-12-31 18:07 | P.PN ---
Subjective Progress Note Date: 12/31/21 This is a 76-year-old female status post aortobifemoral arterial bypass with left femoral endarterectomy for aortoiliac occlusion, anemia and multiple other medical issues. Transfuse 1 unit of packed RBCs yesterday, hemoglobin increased 8.7. Continues on IV fluid hydration of LR at 75 MLS an hour. NG tube to LIS. Passing flatus. Denies chest pain, palpitations or increased shortness of breath. Telemetry sinus tachycardia. Sodium 142. Renal function stable. Maintaining O2 sats in the low 90s on room air. 12/30/21 continues on IV fluid hydration , NG tube clamped .pain controlled, passing flatus, reports small bowel movement yesterday and again this morning. Tolerating clear liquid diet with no nausea or vomiting or diarrhea. Afebrile, normal WBC, sodium 1:30, bicarb 28, BUN 24, creatinine 0.59. Objective - Vital Signs Vital signs: Vital Signs Temp 98 F 12/30/21 12:00 Pulse 90 12/30/21 13:00 Resp 22 12/30/21 13:00 BP 142/67 12/30/21 12:00 Pulse Ox 92 L 12/30/21 12:00 FiO2 Intake & Output 12/29/21 12/30/21 12/30/21 18:59 06:59 18:59 Intake Total 1565 225 150 Output Total 255 50 Balance 1310 175 150 Weight 61.5 kg Intake: IV 825 225 150 Lactated Ringers 1,000 ml 825 225 150 @ 75 mls/hr IV .[id number] [facility] Rx#:[id number] Oral 620 Other 120 Output: Urine 230 50 Stool 25 Other: Voiding Method Indwelling Catheter Bedside Commode Toilet Bedside Commode # Voids 1 1 # Bowel Movements 1 ABP, PAP, CO, CI - Last Documented Arterial Blood Pressure 213/44 - Exam PHYSICAL EXAM: VITAL SIGNS: [As above] GENERAL: Sitting up in chair, no acute distress. HEENT: Conjunctivae normal. eyes normal. NG tube clamped. NECK: Supple, No JVD. CARDIOVASCULAR: S1, S2 regular, tachycardic, No murmur RESPIRATION: Unlabored, Breath sounds diminished in the bases. ABDOMEN: Soft, status post surgery, prevana dressing present.No guarding. EXTREMITIES: Bilateral groins with Prevena Dressing present.Bilateral lower extremites warm, palpable left DP/Doppler right DP. Positive edema. PSYCHIATRY: Alert and oriented X3, mood and affect normal. NERVOUS SYSTEM: Cranial N 2-12 grossly normal.No focal deficit. Strength and sensation grossly intact. Skin: Warm and dry, no rash - Labs CBC & Chem 7: 12/31/21 05:01 12/31/21 05:01 Labs: Abnormal Lab Results - Last 24 Hours (Table) 12/30/21 12/30/21 Range/Units 05:35 05:35 RBC 3.07 L (3.80-5.40) m/uL Hgb 8.3 L (11.4-16.0) gm/dL Hct 26.0 L (34.0-46.0) % Sodium 130 L (137-145) mmol/L BUN 24 H (7-17) mg/dL Calcium 7.5 L (8.4-10.2) mg/dL Assessment and Plan Assessment: Aortoiliac occlusion, Status post aortobifemoral arterial bypass left femoral endarterectomy, the patient with history of chronic claudication Acute blood loss Anemia Extensive nicotine dependence, has smoked one pack per day since the age of 13 Protein calorie malnutrition, BMI 16 COPD Hypertension Hyperlipidemia Plan: Continue on current medication regime ,monitoring and symptomatic treatment. Possible DC of NG tube, with diet advancement as per surgery .maintain aggressive pulmonary toileting with incentive spirometer reinforced. Increase ambulation as tolerated. Cleared by surgery and freight inspector for transfer out of ICU to [facility]. Discharge planning in progress potentially for tomorrow as per surgery. The impression and plan of care has been dictated as directed. : I performed a history and examination of this patient, discussed the same with the dictator. I agree with the dictator's note ,documented as a scribe. Any additional findings or plans will be noted.
--- NOTE | 2021-12-31 18:15 | P.PN ---
Subjective Progress Note Date: 12/31/21 This is a 76-year-old female status post aortobifemoral arterial bypass with left femoral endarterectomy for aortoiliac occlusion, anemia and multiple other medical issues. Transfuse 1 unit of packed RBCs yesterday, hemoglobin increased 8.7. Continues on IV fluid hydration of LR at 75 MLS an hour. NG tube to LIS. Passing flatus. Denies chest pain, palpitations or increased shortness of breath. Telemetry sinus tachycardia. Sodium 142. Renal function stable. Maintaining O2 sats in the low 90s on room air. 12/30/21 continues on IV fluid hydration , NG tube clamped .pain controlled, passing flatus, reports small bowel movement yesterday and again this morning. Tolerating clear liquid diet with no nausea or vomiting or diarrhea. Afebrile, normal WBC, sodium 1:30, bicarb 28, BUN 24, creatinine 0.59. 12/31/2021 transferred out of ICU yesterday, currently sitting up in chair, NG tube out, tolerating diet advancement. Denies nausea vomiting or diarrhea. Positive bowel movement/flatus. Ambulating, tolerating exertion well. Pain controlled. Denies chest pain, palpitations or shortness of breath. Hemoglobin currently 7.5 with no signs or symptoms of bleeding. Renal function stable. S odium 129, magnesium 1.7 Denies lightheadedness dizziness or focal deficits. Objective - Vital Signs Vital signs: Vital Signs Temp 98.3 F 12/31/21 11:06 Pulse 97 12/31/21 11:06 Resp 16 12/31/21 11:06 BP 125/57 12/31/21 11:06 Pulse Ox 95 12/31/21 11:06 FiO2 Intake & Output 12/30/21 12/31/21 12/31/21 18:59 06:59 18:59 Intake Total 1110 710 Output Total 123 Balance 987 710 Intake: IV 750 Lactated Ringers 1,000 ml 750 @ 75 mls/hr IV .[id number] [facility] Rx#:[id number] Oral 360 710 Output: Urine 120 Urine/Stool Mix 3 Other: Voiding Method Toilet Bedside Commode # Voids 2 3 ABP, PAP, CO, CI - Last Documented Arterial Blood Pressure 213/44 - Exam PHYSICAL EXAM: VITAL SIGNS: [As above] GENERAL: Sitting up in chair, no acute distress. HEENT: Conjunctivae normal. eyes normal. NECK: Supple, No JVD. CARDIOVASCULAR: S1, S2 regular,No murmur RESPIRATION: Unlabored, Breath sounds diminished in the bases. ABDOMEN: Soft, status post surgery, prevana dressing present.No guarding. EXTREMITIES: Bilateral groins with Prevena Dressing present.Bilateral lower extremites warm, palpable left DP/Doppler right DP. PSYCHIATRY: Alert and oriented X3, mood and affect normal. NERVOUS SYSTEM: Cranial N 2-12 grossly normal.No focal deficit. Strength and sensation grossly intact. Skin: Warm and dry, no rash - Labs CBC & Chem 7: 12/31/21 05:01 12/31/21 05:01 Labs: Abnormal Lab Results - Last 24 Hours (Table) 12/31/21 12/31/21 Range/Units 05:01 05:01 RBC 2.89 L (4.10-5.20) X 10*6/uL Hgb 7.5 L (12.0-15.0) g/dL Hct 24.1 L (37.2-46.3) % MCH 26.0 L (27.0-32.0) pg MCHC 31.1 L (32.0-37.0) g/dL RDW 16.0 H (11.5-14.5) % Immature Gran # 0.05 H (0.00-0.04) X 10*3/uL Sodium 129 L (137-145) mmol/L Calcium 7.2 L (8.4-10.2) mg/dL Assessment and Plan Assessment: Aortoiliac occlusion, Status post aortobifemoral arterial bypass left femoral endarterectomy, the patient with history of chronic claudication Acute blood loss Anemia Extensive nicotine dependence, has smoked one pack per day since the age of 13, reports quit 3 mths ago Protein calorie malnutrition, BMI 16 COPD Hypertension Hyperlipidemia Plan: Continue on current medication regime ,monitoring and symptomatic treatment. Magnesium and potassium replacement ordered .Discharge planning in progress for today as per surgery. Electrolytes, hemoglobin and renal function recheck outpatient in 3 days, Rx sent. Continue aggressive pulmonary toileting, using incentive spirometer at home as previously advised. Follow-up with PCP in one week. The impression and plan of care has been dictated as directed. : I performed a history and examination of this patient, discussed the same with the dictator. I agree with the dictator's note ,documented as a scribe. Any additional findings or plans will be noted.
== END 2021-12-31 15:52 | disposition home health service (06) | DRG 271 ==
LOC: 2ORMAIN 05:49 → 2SICU 13:14 → 5NMEDONC 12-30 18:54
PROVIDERS: ADMIT Surgery; ATTEND Surgery
PROC: 0D9670Z Drainage of Stomach with Drainage Device, Via Natural or Artificial Opening (ICD-10-PCS; 2021-12-26)
PROC: 04CL3ZZ Extirpation of Matter from Left Femoral Artery, Percutaneous Approach (ICD-10-PCS; principal; 2021-12-26 07:30)
PROC: 041 Lower Arteries, Bypass (ICD-10-PCS; principal; 2021-12-26 07:30)
PROC: 30233N1 Transfusion of Nonautologous Red Blood Cells into Peripheral Vein, Percutaneous Approach (ICD-10-PCS; 2021-12-28)
DX: I70.223 Atherosclerosis of native arteries of extremities with rest pain, bilateral legs (principal); D62 Acute posthemorrhagic anemia; I74.09 Other arterial embolism and thrombosis of abdominal aorta; Z68.1 Body mass index [BMI] 19.9 or less, adult; E44.0 Moderate protein-calorie malnutrition; J44.9 Chronic obstructive pulmonary disease, unspecified; E83.51 Hypocalcemia; E88.09 Other disorders of plasma-protein metabolism, not elsewhere classified; I95.9 Hypotension, unspecified; I11.0 Hypertensive heart disease with heart failure; E78.5 Hyperlipidemia, unspecified; M81.0 Age-related osteoporosis without current pathological fracture; M19.90 Unspecified osteoarthritis, unspecified site; F17.210 Nicotine dependence, cigarettes, uncomplicated; Z79.83 Long term (current) use of bisphosphonates; Z79.899 Other long term (current) drug therapy
CPT/HCPCS: 71045; 76770; 80048; 80053; 83735; 85025; 85027; 86850; 86891; 86900; 86901; 86920; 88304; 88305; 88311

== ENCOUNTER → 2022-01-03 | Outpatient (CLI) | payer MEDICARE ==
[2022-01-03 16:59] LABS: Basophils # (A) 0.04 X 10*3/uL (0.00-0.10); Basophils % (A) 0.4 %; Eosinophils # (A) 0.26 X 10*3/uL (0.04-0.35); Eosinophils % (A) 2.9 %; HCT 29.4 % (37.2-46.3); Immature Grans, Automated 0.9 %; Lymphocytes # (A) 1.32 X 10*3/uL (0.90-5.00); Lymphocytes % (A) 14.6 %; MCH 26.2 pg (27.0-32.0); MCHC 30.6 g/dL (32.0-37.0); MCV 85.5 fL (80.0-97.0); Mean Platelet Volume 10.3 fL (9.5-12.2); Monocytes # (A) 0.71 X 10*3/uL (0.20-1.00); Monocytes % (A) 7.8 %; NRBC Per 100 WBC 0 /100 WBCS (0.0-0.0); Neutrophils # (A) 6.65 X 10*3/uL (1.80-7.70); Neutrophils % (A) 73.4 %; Platelet Count 488 X 10*3/uL (140-440); RBC 3.44 X 10*6/uL (4.10-5.20); RDW 17.5 % (11.5-14.5); WBC 9.06 X 10*3/uL (4.50-10.00)
[2022-01-03 17:16] LABS: Anion Gap 11.6 mmol/L (10.00-18.00); BUN/Creat Ratio 14.4 Ratio (12.00-20.00); Blood Urea Nitrogen 7.2 mg/dL (9.0-27.0); Carbon Dioxide 27.4 mmol/L (20.0-27.5); Potassium 3.2 mmol/L (3.5-5.5)
== END | disposition home or self-care (01) ==
LOC: LABWHC1 10:12
PROVIDERS: ATTEND Nurse Practitioner
DX: D64.9 Anemia, unspecified (principal); E87.6 Hypokalemia; E87.1 Hypo-osmolality and hyponatremia
CPT/HCPCS: 36415; 80048; 85025

== ENCOUNTER → 2022-09-01 | Outpatient (CLI) | payer MEDICARE ==
--- NOTE | 2022-09-01 10:43 | XR ---
EXAMINATION TYPE: XR lumbar spine 2 or 3V DATE OF EXAM: 09/01/2022 CLINICAL HISTORY: M54.16 RADICULOPATHY, LUMBAR REGION TECHNIQUE: Three views of the lumbar spine are submitted. COMPARISON: None. FINDINGS: There are 5 lumbar type vertebral bodies identified. Marked levo scar curvature of the lumbar spine w ith apex at L2-L3. No acute fracture or dislocation. Diffuse bone demineralization. Vertebral body he ights are within normal limits. Multilevel disc space narrowing with endplate sclerosis and anterio r osteophytosis most pronounced at L2-L4. Multilevel facet arthropathy with mild neural foraminal na rrowing suggested at L4-L5. The overlying soft tissue appears unremarkable. Vascular sclerosis of the aorta. Possible left renal calculi measuring up to 3 mm. IMPRESSION: 1. No acute fracture or dislocation is seen in the lumbar spine. 2. Mild to moderate lumbar spondylosis. 3. Levoscoliotic curvature of the lumbar spine.
== END | disposition home or self-care (01) ==
LOC: RADXRMAIN 10:03
PROVIDERS: ATTEND Family Medicine
DX: M47.26 Other spondylosis with radiculopathy, lumbar region (principal)
CPT/HCPCS: 72100

== ENCOUNTER 2024-11-14 04:48 | Emergency (ER) | payer MEDICARE ==
--- NOTE | 2024-11-14 06:39 | ED ---
Extremity Problem HPI - General Chief complaint: Extremity Problem,Nontraumatic Stated complaint: Leg Pain Time Seen by Provider: 11/14/24 06:39 Source: patient, family, EMS, RN notes reviewed, old records reviewed Mode of arrival: EMS Limitations: no limitations - History of Present Illness Initial comments: 79-year-old female presented the ER via EMS for evaluation of bilateral lower extremity numbness. Patient with past medical history significant of iron deficiency anemia, hypertension, hyperlipidemia, vascular disorder, and COPD. Patient states has been an ongoing problem for many years. 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 Patient is following up with Dr. Liu and Dr. Vicente. She reports over the past 3 weeks she has been having increasing numbness to her bilateral lower extremities. She states she typically does not have discomfort or numbness to right lower extremity this has worsened over this timeframe. Patient states today her right foot went "numb" causing her to fall. She denies any head injury, loss of consciousness or blood thinner use. She denies any injuries from the fall. Patient states the numbness is limiting her ability to ambulate safely at home. She lives at home with her who is currently residing at nursing facility for rehabilitation. She denies any chest pain, shortness of breath, dizziness, lightheadedness, nausea, vomiting or abdominal pain. Patient states she was recently started on Lexapro for anxiety and states she has been "groggy" since starting this. - Related Data Home Medications Medication Instructions Recorded Confirmed Alendronate Sodium [Fosamax] 70 mg PO TREJO 09/29/21 11/14/24 Atorvastatin [Lipitor] 80 mg PO HS 12/25/21 11/14/24 Escitalopram [Lexapro] 5 mg PO DAILY 11/14/24 11/14/24 Furosemide [Lasix] 20 mg PO DAILY 11/14/24 11/14/24 Previous Rx's Medication Instructions Recorded amLODIPine [Norvasc] 5 mg PO DAILY #30 tab 12/31/21 Allergies Allergy/AdvReac Type Severity Reaction Status Date / Time No Known Allergies Allergy Verified 11/14/24 13:14 Review of Systems ROS Statement: Those systems with pertinent positive or pertinent negative responses have been documented in the HPI. ROS Other: All systems not noted in ROS Statement are negative. Past Medical History Past Medical History: COPD, Hyperlipidemia, Hypertension, Osteoarthritis (OA), Vascular Disorder Additional Past Medical History / Comment(s): vin lower leg pain increasing recently, osteoporosis History of Any Multi-Drug Resistant Organisms: None Reported Past Surgical History: Breast Surgery, Hysterectomy Additional Past Surgical History / Comment(s): benign left breast bx., abd. aortogram Past Anesthesia/Blood Transfusion Reactions: No Reported Reaction Past Psychological History: No Psychological Hx Reported Smoking Status: Former smoker Past Alcohol Use History: None Reported Past Drug Use History: None Reported General Exam Limitations: no limitations General appearance: alert, in no apparent distress Respiratory exam: Present: normal lung sounds bilaterally. Absent: respiratory distress, wheezes, rales, rhonchi, stridor Cardiovascular Exam: Present: regular rate, normal rhythm, normal heart sounds. Absent: systolic murmur, diastolic murmur, rubs, gallop, clicks Extremities exam: Present: normal inspection, full ROM, normal capillary refill (No palpable pulses. Brisk cap refill) Neurological exam: Present: alert, oriented X3, CN II-XII intact Skin exam: Present: warm, dry, intact, normal color. Absent: rash Course Vital Signs 11/14/24 11/14/24 11/14/24 04:50 05:01 05:02 Temperature 98.3 F Pulse Rate 100 Respiratory 20 Rate Blood Pressure 146/68 O2 Sat by Pulse 94 L 88 L 95 Oximetry 11/14/24 11/14/24 11/14/24 06:08 09:41 10:21 Temperature 97.5 F L 98 F Pulse Rate 86 90 90 Respiratory 18 14 16 Rate Blood Pressure 130/68 120/58 127/62 O2 Sat by Pulse 94 L 93 L 94 L Oximetry Medical Decision Making - Medical Decision Making Was pt. sent in by a medical professional or institution (, PA, H[employer], urgent care, hospital, or group home...) When possible be specific @ -No Did you speak to anyone other than the patient for history (EMS, parent, family, police, friend...)? What history was obtained from this source @ -Daughter, at bedside, aiding in HPI past medical history Did you review nursing and triage notes (agree or disagree)? Why? @ -I reviewed and agree with nursing and triage notes Were old charts reviewed (outside hosp., previous admission, EMS record, old EKG, old radiological studies, urgent care reports/EKG's, group home records)? Report findings @ -Discharge summary reviewed from 10-02-2021. Patient mated to the hospital for bilateral lower extremity pain/burning. Patient was evaluated by cardiology and found to have occluded infrarenal aorta, occluded bilateral iliac systems with indeterminate to severe disease involving the SFA bilaterally. Patient discharged home with close outpatient follow-up for further evaluation of possible aortobiferm bypass. Differential Diagnosis (chest pain, altered mental status, abdominal pain women, abdominal pain men, vaginal bleeding, weakness, fever, dyspnea, syncope, headache, dizziness, GI bleed, back pain, seizure, CVA, palpatations, mental health, musculoskeletal)? @ -Differential Musculoskeletal: Muscular strain, contusion, ligament sprain, fracture, arthritis, septic arthritis, bursitis, cellulitis, muscle spasm, nerve compression, DVT, arterial occlusion, herpes zoster, electrolyte abnormality, tumor.... This is not meant to be in all inclusive list EKG interpreted by me (3pts min.). @ -As above X-rays interpreted by me (1pt min.). @ -None done CT interpreted by me (1pt min.). @ -CTA bilateral lower extremities showing obstruction of the visualized portion of the right iliac stent. Collateral flow reconstitutes the right superficial femoral artery. There are several areas of stenosis within the superficial femoral arteries bilaterally which remain patent to the popliteal artery. Bilateral patent lower extremity popliteal and trifurcation vessels patent to the U/S interpreted by me (1pt. min.). @ -None done What testing was considered but not performed or refused? (CT, X-rays, U/S, labs)? Why? @ -None What meds were considered but not given or refused? Why? @ -None Did you discuss the management of the patient with other professionals (professionals i.e. , PA, [employer]ER, lab, RT, psych nurse, social service assistant, optical mechanic, teacher, global chief experience officer, foster care case manager)? Give summary @ -Yes, case discussed in detail including but not limited to physical exam and workup in the ER with on-call vascular, Dr. Liu. Was smoking cessation discussed for >3mins.? @ -No Was critical care preformed (if so, how long)? @ -No Were there social determinants of health that impacted care today? How? (Homelessness, low income, unemployed, alcoholism, drug addiction, transportation, low edu. Level, literacy, decrease access to med. care, [facility], rehab)? @ -No Was there de-escalation of care discussed even if they declined (Discuss DNR or withdrawal of care, Hospice)? DNR status @ -No What co-morbidities impacted this encounter? (DM, HTN, Smoking, COPD, CAD, Cancer, CVA, ARF, Chemo, Hep., AIDS, mental health diagnosis, sleep apnea, morbid obesity)? @ -COPD, hyperlipidemia, hypertension, osteoarthritis, vascular disorder, former smoker Was patient admitted / discharged? Hospital course, mention meds given and route, prescriptions, significant lab abnormalities, going to OR and other pertinent info. @ -Discharge. 79-year-old female presented the ER for evaluation of bilateral lower extremity numbness. Vital signs stable. Patient in no signs of acute distress resting comfortably on stretcher. There are no palpable pulses on exam brisk capillary refill. Bilateral lower extremities are normal color and warm to touch. Laboratory studies obtained remarkable for leukocytosis 11.7. Hemoglobin 7.4, patient has a history of iron deficiency anemia. Sodium 135, potassium 3.6. CTA bilateral lower extremities showing obstruction of visualized portion of right iliac stent. Collateral flow reconstitutes the right superficial femoral artery. There is other areas of stenosis within the superficial femoral arteries bilaterally which remain patent to popliteal artery. Bilateral patent lower extremity popliteal and trifurcation vessels patent to the ankle. Case was discussed with on-call vascular, . He advised on close outpatient follow-up as findings appear to be chronic. Upon reevaluation, patient resting comfortably on stretcher no signs of acute distress. Results discussed with patient and daughter, at bedside, all questions answered. Daughter reports appointment with Dr. Liu at 12:00pm today and appointment with cardiology, Dr. Vicente at 2:45pm today. Patient discharged in stable condition advised to attend these appointments for further evaluation. Strict return parameters discussed. Patient and patient's daughter verbally expressed understanding agreement care plan. Case discussed with ED attending, Dr. Novak. Undiagnosed new problem with uncertain prognosis? @ -No Drug Therapy requiring intensive monitoring for toxicity (Heparin, Nitro, Insulin, Cardizem)? @ -No Were any procedures done? @ -No Diagnosis/symptom? @ -Bilateral leg pain/right iliac stent obstruction Acute, or Chronic, or Acute on Chronic? @ -Acute Uncomplicated (without systemic symptoms) or Complicated (systemic symptoms)? @ -Complicated Side effects of treatment? @ -No Exacerbation, Progression, or Severe Exacerbation? @ -No Poses a threat to life or bodily function? How? (Chest pain, USA, ND, pneumonia, PE, COPD, DKA, ARF, appy, cholecystitis, CVA, Diverticulitis, Homicidal, Suicidal, threat to staff... and all critical care pts) @ -Low at this time - Lab Data Result diagrams: 11/14/24 05:00 11/14/24 05:00 Lab Results 11/14/24 11/14/24 Range/Units 05:00 05:00 WBC 11.79 H (4.50-10.00) 10*3/uL RBC 3.61 L (4.10-5.20) 10*6/uL Hgb 7.4 L (12.0-15.0) g/dL Hct 24.5 L (37.2-46.3) % MCV 67.9 L (80.0-97.0) fL MCH 20.5 L (27.0-32.0) pg MCHC 30.2 L (32.0-37.0) g/dL Plt Count 271 (140-440) 10*3/uL MPV 10.5 (9.5-12.2) fL Immature Gran % (Auto) 1.7 % Neutrophils % 88.7 % Lymphocytes % 5.7 % Monocytes % 3.6 % Eosinophils % 0.0 % Basophils % 0.3 % Immature Gran # 0.20 H (0.00-0.04) 10*3/uL Neutrophils # 10.45 H (1.80-7.70) 10*3/uL Lymphocytes # 0.67 L (0.90-5.00) 10*3/uL Monocytes # 0.43 (0.20-1.00) 10*3/uL Eosinophils # 0.00 L (0.04-0.35) 10*3/uL Basophils # 0.04 (0.00-0.10) 10*3/uL Sodium 135 L (137-145) mmol/L Potassium 3.6 (3.5-5.1) mmol/L Chloride 101 (98-107) mmol/L Carbon Dioxide 20 L (22-30) mmol/L Anion Gap 14 mmol/L BUN 19 H (7-17) mg/dL Creatinine 0.55 (0.52-1.04) mg/dL Est GFR (CKD-EPI)AfAm >90 (>60 ml/min/1.73 sqM) Est GFR (CKD-EPI)NonAf 90 (>60 ml/min/1.73 sqM) Glucose 203 H (74-99) mg/dL Calcium 8.1 L (8.4-10.2) mg/dL Total Bilirubin 0.9 (0.2-1.3) mg/dL AST 21 (14-36) U/L ALT 11 (4-34) U/L Alkaline Phosphatase 71 (38-126) U/L Total Protein 6.6 (6.3-8.2) g/dL Albumin 3.3 L (3.5-5.0) g/dL - EKG Data -: EKG Interpreted by Me EKG Comments: EKG taken at 7:06 showing a sinus rhythm with frequent PACs. No ST segment ovation's or depressions. No T wave inversions. Ventricular rate 87, AK 141, QRS duration 86, QT/QTc 366/411 - Radiology Data Radiology results: report reviewed, image reviewed Disposition Clinical Impression: Bilateral leg numbness Disposition: HOME SELF-CARE Condition: Stable Additional Instructions: Follow-up closely with and Dr. Liu today as scheduled. Return to the ER for any new or worsening symptoms. Is patient prescribed a controlled substance at d/c from ED?: No Referrals: Ramo Hester DO [Primary Care Provider] - 1-2 days Abdoulaye Vicente MD [STAFF PHYSICIAN] - 1-2 days Michael Liu DO [STAFF PHYSICIAN] - 1-2 days Time of Disposition: 09:58
[2024-11-14 07:15] LABS: Basophils # (A) 0.04 10*3/uL (0.00-0.10); Basophils % (A) 0.3 %; HCT 24.5 % (37.2-46.3); HGB 7.4 g/dL (12.0-15.0); Lymphocytes # (A) 0.67 10*3/uL (0.90-5.00); Lymphocytes % (A) 5.7 %; MCH 20.5 pg (27.0-32.0); MCHC 30.2 g/dL (32.0-37.0); MCV 67.9 fL (80.0-97.0); Mean Platelet Volume 10.5 fL (9.5-12.2); Monocytes # (A) 0.43 10*3/uL (0.20-1.00); Monocytes % (A) 3.6 %; Neutrophils # (A) 10.45 10*3/uL (1.80-7.70); Neutrophils % (A) 88.7 %; Platelet Count 271 10*3/uL (140-440); RBC 3.61 10*6/uL (4.10-5.20); WBC 11.79 10*3/uL (4.50-10.00)
[2024-11-14 07:17] LABS: ALT 11 U/L (4-34); AST 21 U/L (14-36); African American GFR (CKD) >90 (>60 ml/min/1.73 sqM); Albumin 3.3 g/dL (3.5-5.0); Alkaline Phosphatase 71 U/L (38-126); Anion Gap 14 mmol/L; Blood Urea Nitrogen 19 mg/dL (7-17); Calcium 8.1 mg/dL (8.4-10.2); Carbon Dioxide 20 mmol/L (22-30); Chloride 101 mmol/L (98-107); Glucose 203 mg/dL (74-99); Non-African American GFR(CKD) 90 (>60 ml/min/1.73 sqM); Potassium 3.6 mmol/L (3.5-5.1); Sodium 135 mmol/L (137-145); Total Bilirubin 0.9 mg/dL (0.2-1.3); Total Protein 6.6 g/dL (6.3-8.2)
--- NOTE | 2024-11-14 08:50 | CT ---
EXAMINATION TYPE: CT angio lower extremity BILAT DATE OF EXAM: 11/14/2024 8:23 AM COMPARISON: None. CLINICAL INDICATION: Female, 79 years old with history of new numbness rle - vin le numbness, LEG NUM BNESS TECHNIQUE: Contrast used:100 mL of Isovue 370 with IV Contrast, (none if empty) Oral contrast used: (none if empty) Axial images at 5 mm thick sections. Reconstructed images in the coronal and sagittal planes. 3-D re constructed images performed on a separate computer by the technologist are reviewed. 2-D MIP imaging is performed. FINDINGS: Iliac stents is evident on the right. No contrast is present within the iliac stent. Left external il iac artery is patent with contrast. There is reconstitution of the right superficial femoral artery a nd the profunda femoris. Superficial femoral arteries are patent although vessels appear small. Multi ple areas of calcification are present compatible with stenosis. Superficial femoral arteries extend to the popliteal arteries which are patent. Anterior tibial, peroneal and posterior tibial arteries a re patent. These extend to the ankle. IMPRESSION: 1. OBSTRUCTION OF THE VISUALIZED PORTION OF THE RIGHT ILIAC STENT. 2. COLLATERAL FLOW RECONSTITUTES THE RIGHT SUPERFICIAL FEMORAL ARTERY. 3. THERE ARE SEVERAL AREAS OF STENOSIS WITHIN THE SUPERFICIAL FEMORAL ARTERIES BILATERALLY WHICH ARACELI IN PATENT TO THE POPLITEAL ARTERY. 4. BILATERAL PATENT LOWER EXTREMITY POPLITEAL AND TRIFURCATION VESSELS PATENT TO THE ANKLE. [facility], , 11/14/2024 8:48 AM
[2024-11-14 09:46] VITALS: PULSE 90
[2024-11-14 10:31] VITALS: BP 127/62; RESP 16; TEMP 98
== END 2024-11-14 10:31 | disposition home or self-care (01) ==
LOC: EC 04:48
DX: T82.856A Stenosis of peripheral vascular stent, initial encounter (principal); E78.5 Hyperlipidemia, unspecified; I10 Essential (primary) hypertension; M19.90 Unspecified osteoarthritis, unspecified site; I73.9 Peripheral vascular disease, unspecified; Z87.891 Personal history of nicotine dependence
CPT/HCPCS: 36415; 93005; 80053; 85025; 73706; 99285; Q9967

== ENCOUNTER 2024-11-14 13:08 | Inpatient (IN) | payer MEDICARE ==
[2024-11-14 13:47] LABS: Basophils # (A) 0.03 10*3/uL (0.00-0.10); Basophils % (A) 0.3 %; HGB 7.4 g/dL (12.0-15.0); Lymphocytes # (A) 1.41 10*3/uL (0.90-5.00); Lymphocytes % (A) 13.8 %; MCH 20.8 pg (27.0-32.0); MCHC 30.8 g/dL (32.0-37.0); MCV 67.4 fL (80.0-97.0); Mean Platelet Volume 10.1 fL (9.5-12.2); Monocytes # (A) 0.68 10*3/uL (0.20-1.00); Monocytes % (A) 6.6 %; Neutrophils % (A) 78.2 %; Platelet Count 288 10*3/uL (140-440); RBC 3.56 10*6/uL (4.10-5.20); RDW 18.9 % (11.5-14.5); WBC 10.23 10*3/uL (4.50-10.00)
[2024-11-14] MEDS: KETOROLAC 15 MG/ML 1 ML VIAL IVP STA (13:53)
[2024-11-14] MEDS: HYDROmorphone 0.5 MG/0.5 ML SYRINGE IVP STA (13:55)
[2024-11-14 14:07] LABS: ALT 13 U/L (4-34); AST 32 U/L (14-36); African American GFR (CKD) >90 (>60 ml/min/1.73 sqM); Albumin 3.6 g/dL (3.5-5.0); Alkaline Phosphatase 75 U/L (38-126); Anion Gap 11 mmol/L; Blood Urea Nitrogen 20 mg/dL (7-17); Calcium 8.2 mg/dL (8.4-10.2); Carbon Dioxide 24 mmol/L (22-30); Chloride 98 mmol/L (98-107); Glucose 114 mg/dL (74-99); Non-African American GFR(CKD) 87 (>60 ml/min/1.73 sqM); Potassium 3.7 mmol/L (3.5-5.1); Sodium 133 mmol/L (137-145); Total Bilirubin 0.9 mg/dL (0.2-1.3); Total Protein 7.1 g/dL (6.3-8.2)
--- NOTE | 2024-11-14 14:07 | ED ---
Extremity Problem HPI - General Chief complaint: Extremity Problem,Nontraumatic Stated complaint: Recheck-Kunal leg pain Time Seen by Provider: 11/14/24 13:30 Source: patient, family (daughter), RN notes reviewed, old records reviewed Mode of arrival: ambulatory Limitations: no limitations - History of Present Illness Initial comments: 79-year-old female accompanied by daughter presented to ER for evaluation of bilateral lower extremity pain and numbness. Patient seen and evaluated earlier this morning for similar complaint. Patient was discharged instructed to follow-up with vascular and cardiology as scheduled today. Patient has known chronic PAD to bilateral lower extremities. Patient had iliac stent placed in [address] Khalil. Patient returns to the ER as when she got home patient had increasing pain to bilateral lower extremities limiting her ability to ambulate and walk. Daughter states she attempted to contact vascular, Dr. Liu's, office who instructed her to come to the ER for further evaluation. Patient denies any fevers, cough, congestion, chest pain, shortness of breath, dizziness, lightheadedness. She denies any falls since discharge. She has not taken anything for pain at this time. No new complaints from previous visit. - Related Data Home Medications Medication Instructions Recorded Confirmed Alendronate Sodium [Fosamax] 70 mg PO TREJO 09/29/21 11/14/24 Atorvastatin [Lipitor] 80 mg PO HS 12/25/21 11/14/24 Escitalopram [Lexapro] 5 mg PO DAILY 11/14/24 11/14/24 Furosemide [Lasix] 20 mg PO DAILY 11/14/24 11/14/24 Previous Rx's Medication Instructions Recorded amLODIPine [Norvasc] 5 mg PO DAILY #30 tab 12/31/21 Allergies Allergy/AdvReac Type Severity Reaction Status Date / Time No Known Allergies Allergy Verified 11/14/24 14:29 Review of Systems ROS Statement: Those systems with pertinent positive or pertinent negative responses have been documented in the HPI. ROS Other: All systems not noted in ROS Statement are negative. Past Medical History Past Medical History: COPD, Hyperlipidemia, Hypertension, Osteoarthritis (OA), Vascular Disorder Additional Past Medical History / Comment(s): osteoporosis, blockage RLE History of Any Multi-Drug Resistant Organisms: None Reported Past Surgical History: Breast Surgery, Hysterectomy Additional Past Surgical History / Comment(s): benign left breast bx., abd. aortogram Past Anesthesia/Blood Transfusion Reactions: No Reported Reaction Past Psychological History: No Psychological Hx Reported Smoking Status: Former smoker Past Alcohol Use History: None Reported Past Drug Use History: None Reported General Exam Limitations: no limitations General appearance: alert, in no apparent distress Respiratory exam: Present: normal lung sounds bilaterally. Absent: respiratory distress, wheezes, rales, rhonchi, stridor Cardiovascular Exam: Present: regular rate, normal rhythm, normal heart sounds. Absent: systolic murmur, diastolic murmur, rubs, gallop, clicks Extremities exam: Present: normal inspection, full ROM, normal capillary refill Neurological exam: Present: alert, oriented X3, CN II-XII intact Skin exam: Present: warm, dry, intact, normal color. Absent: rash Course Vital Signs 11/14/24 11/14/24 11/14/24 13:11 13:50 14:03 Temperature 97.9 F Pulse Rate 97 88 Respiratory 22 14 Rate Blood Pressure 131/63 121/58 O2 Sat by Pulse 97 93 L 82 L Oximetry 11/14/24 11/14/24 14:08 16:09 Temperature 98.2 F Pulse Rate 88 Respiratory 14 Rate Blood Pressure 120/59 O2 Sat by Pulse 94 L 92 L Oximetry - Reevaluation(s) Reevaluation #1: 11/14/24 14:[address] Hester who accepts admission. Medical Decision Making - Medical Decision Making Was pt. sent in by a medical professional or institution (, PA, FARM EQUIPMENT TECHNICIAN, urgent care, hospital, or skilled nursing...) When possible be specific @ -No Did you speak to anyone other than the patient for history (EMS, parent, family, police, friend...)? What history was obtained from this source @ -Patient's daughter, at bedside, aiding in HPI past medical history. Did you review nursing and triage notes (agree or disagree)? Why? @ -I reviewed and agree with nursing and triage notes Were old charts reviewed (outside hosp., previous admission, EMS record, old EKG , old radiological studies, urgent care reports/EKG's, skilled nursing records)? Report findings @ -ER visit from 11-14-2024 reviewed. Patient evaluated for bilateral lower extremity numbness. Laboratory studies unimpressive. CTA bilateral lower extremity was obtained showing obstruction of visualized portion of right iliac stent. Collateral flow reconstitutes the right superficial femoral artery. Several areas of stenosis within the superficial femoral arteries bilaterally which remain patent to the popliteal artery. Bilateral patent lower extremity popliteal and trifurcation vessels patent to the ankle. Patient ultimately discharged home instructed to follow-up with vascular surgery and cardiology as scheduled today. Differential Diagnosis (chest pain, altered mental status, abdominal pain women, abdominal pain men, vaginal bleeding, weakness, fever, dyspnea, syncope, headache, dizziness, GI bleed, back pain, seizure, CVA, palpatations, mental health, musculoskeletal)? @ -Differential Musculoskeletal: Muscular strain, contusion, ligament sprain, fracture, arthritis, septic arthritis, bursitis, cellulitis, muscle spasm, nerve compression, DVT, arterial occlusion, herpes zoster, electrolyte abnormality, tumor.... This is not meant to be in all inclusive list EKG interpreted by me (3pts min.). @ -None done X-rays interpreted by me (1pt min.). @ -None done CT interpreted by me (1pt min.). @ -None done U/S interpreted by me (1pt. min.). @ -None done What testing was considered but not performed or refused? (CT, X-rays, U/S, labs)? Why? @ -Repeat imaging deferred as patient had CTA bilateral lower extremities obtained this morning. What meds were considered but not given or refused? Why? @ -Anticoagulation deferred as findings appear to be chronic. Did you discuss the management of the patient with other professionals (professionals i.e. , PA, FARM EQUIPMENT TECHNICIAN, lab, RT, psych nurse, rn social work, public health clinical nurse specialist, teacher, public information officer, casework supervisor)? Give summary @ -Case discussed with Dr. Hester accept admission. Was smoking cessation discussed for >3mins.? @ -No Was critical care preformed (if so, how long)? @ -No Were there social determinants of health that impacted care today? How? (Homelessness, low income, unemployed, alcoholism, drug addiction, transportation, low edu. Level, literacy, decrease access to med. care, fpc, rehab)? @ -No Was there de-escalation of care discussed even if they declined (Discuss DNR or withdrawal of care, Hospice)? DNR status @ -No What co-morbidities impacted this encounter? (DM, HTN, Smoking, COPD, CAD, Cancer, CVA, ARF, Chemo, Hep., AIDS, mental health diagnosis, sleep apnea, morbid obesity)? @ -COPD, hypertension, hyperlipidemia, vascular disorder Was patient admitted / discharged? Hospital course, mention meds given and route, prescriptions, significant lab abnormalities, going to OR and other pertinent info. @ -Admitted. 79-year-old female presented the ER for evaluation of bilateral lower extremity pain and numbness. Vital signs stable. Patient seen earlier today where laboratory studies and CTA bilateral lower extremities were obtained. Patient was discharged in stable condition advised to follow-up closely with Dr. Liu and Dr. Vicente as scheduled this afternoon. Upon e valuation, patient resting comfortably in stretcher no signs of acute distress. Bilateral lower extremities are warm with normal capillary refill. Normal skin color. Repeat laboratory studies showed a leukocytosis of 10.2, hemoglobin 7.4. Sodium 133, potassium 3.7. BUN of 20 with a creatinine 0.6. CTA report reviewed from 11-14-2024. Given recent uncontrolled pain affecting ADLs and patient's ability to ambulate, admission was considered and discussed with Dr. Hester. He is agreeable for admission. Vascular will be on consult along with PT and OT. Patient provided symptomatic control with IV Toradol and Dilaudid, with improvement. Patient admitted stable condition for further evaluation and treatment. Case discussed with ED attending, Dr. Novak Undiagnosed new problem with uncertain prognosis? @ -No Drug Therapy requiring intensive monitoring for toxicity (Heparin, Nitro, Insulin, Cardizem)? @ -No Were any procedures done? @ -No Diagnosis/symptom? @ -Bilateral leg pain/right iliac stent obstruction Acute, or Chronic, or Acute on Chronic? @ -Acute Uncomplicated (without systemic symptoms) or Complicated (systemic symptoms)? @ -Complicated Side effects of treatment? @ -No Exacerbation, Progression, or Severe Exacerbation? @ -No Poses a threat to life or bodily function? How? (Chest pain, USA, NM, pneumonia, PE, COPD, DKA, ARF, appy, cholecystitis, CVA, Diverticulitis, Homicidal, Suicidal, threat to staff... and all critical care pts) @ -Possibly - Lab Data Result diagrams: 11/15/24 18:46 11/15/24 19:00 Lab Results 06/17/25 06/17/25 Range/Units 13:38 13:38 WBC 10.23 H (4.50-10.00) 10*3/uL RBC 3.56 L (4.10-5.20) 10*6/uL Hgb 7.4 L (12.0-15.0) g/dL Hct 24.0 L (37.2-46.3) % MCV 67.4 L (80.0-97.0) fL MCH 20.8 L (27.0-32.0) pg MCHC 30.8 L (32.0-37.0) g/dL Plt Count 288 (140-440) 10*3/uL MPV 10.1 (9.5-12.2) fL Immature Gran % (Auto) 1.1 % Neutrophils % 78.2 % Lymphocytes % 13.8 % Monocytes % 6.6 % Eosinophils % 0.0 % Basophils % 0.3 % Immature Gran # 0.11 H (0.00-0.04) 10*3/uL Neutrophils # 8.00 H (1.80-7.70) 10*3/uL Lymphocytes # 1.41 (0.90-5.00) 10*3/uL Monocytes # 0.68 (0.20-1.00) 10*3/uL Eosinophils # 0.00 L (0.04-0.35) 10*3/uL Basophils # 0.03 (0.00-0.10) 10*3/uL Sodium 133 L (137-145) mmol/L Potassium 3.7 (3.5-5.1) mmol/L Chloride 98 (98-107) mmol/L Carbon Dioxide 24 (22-30) mmol/L Anion Gap 11 mmol/L BUN 20 H (7-17) mg/dL Creatinine 0.60 (0.52-1.04) mg/dL Est GFR (CKD-EPI)AfAm >90 (>60 ml/min/1.73 sqM) Est GFR (CKD-EPI)NonAf 87 (>60 ml/min/1.73 sqM) Glucose 114 H (74-99) mg/dL Calcium 8.2 L (8.4-10.2) mg/dL Total Bilirubin 0.9 (0.2-1.3) mg/dL AST 32 (14-36) U/L ALT 13 (4-34) U/L Alkaline Phosphatase 75 (38-126) U/L Total Protein 7.1 (6.3-8.2) g/dL Albumin 3.6 (3.5-5.0) g/dL Disposition Clinical Impression: Bilateral leg numbness, Peripheral artery disease, Leg pain, bilateral Disposition: ADMITTED IP TO THIS [facility] Condition: Stable Time of Disposition: 14:10
[2024-11-14] MEDS ORDERED: NALOXONE 0.4 MG/ML 1 ML VIAL IV PRN (14:08)
[2024-11-14] MEDS: SODIUM CHLORIDE 0.9% 1,000 ML IV SCH (14:17)
[2024-11-14] MEDS: KETOROLAC 15 MG/ML 1 ML VIAL IVP PRN (20:33)
[2024-11-14] MEDS: ATORVASTATIN 80 MG TAB PO SCH (21:09)
[2024-11-15] MEDS: HYDROmorphone 0.5 MG/0.5 ML SYRINGE IVP PRN (01:12)
[2024-11-15] MEDS: FUROSEMIDE 20 MG TAB PO SCH (09:07)
[2024-11-15] MEDS: amLODIPine 5 MG TAB PO SCH (09:07)
--- NOTE | 2024-11-15 18:07 | XR ---
EXAMINATION TYPE: XR chest 1V portable DATE OF EXAM: 11/15/2024 6:00 PM COMPARISON: Prior chest radiographs 12/27/2021. CLINICAL INDICATION: Female, 79 years old with history of shortness of breath; [facility] TECHNIQUE: XR chest 1V portable Frontal view of the chest. FINDINGS: Lungs/Pleura: Diffuse interstitial opacities. Small right pleural effusion. No sizable left-sided ple ural effusion. Pulmonary vascularity: Pulmonary vascular congestion. Heart/mediastinum: Cardiomegaly. Musculoskeletal: No acute osseous pathology. Other findings: None IMPRESSION: Cardiomegaly and prominent interstitial opacities bilaterally felt to most likely reflect sequelae of pulmonary edema given small right pleural effusion. Atypical infectious etiology. Consider less like ly. [facility], , 11/15/2024 6:05 PM
[2024-11-15 18:36] LABS: ABG Base Excess -0.4 mmol/L; ABG HCO3 23 mmol/L (21-25); ABG Oxygen Saturation 85.3 % (94-97); ABG PCO2 32 mmHg (35-45); ABG PH 7.46 (7.35-7.45); ABG TCO2 24 mmol/L (19-24); Allen Test Performed? Yes
[2024-11-15 18:38] LABS: ABG PO2 51 mmHg (83-108)
[2024-11-15 19:14] LABS: Glucose,Whole Blood 168 mg/dL (70-110)
[2024-11-15 19:15] LABS: Basophils # (A) 0.03 10*3/uL (0.00-0.10); Basophils % (A) 0.2 %; HCT 22.8 % (37.2-46.3); Lymphocytes # (A) 0.84 10*3/uL (0.90-5.00); Lymphocytes % (A) 5.5 %; MCH 20.2 pg (27.0-32.0); MCHC 29.4 g/dL (32.0-37.0); MCV 68.9 fL (80.0-97.0); Mean Platelet Volume 10.4 fL (9.5-12.2); Monocytes # (A) 0.59 10*3/uL (0.20-1.00); Monocytes % (A) 3.9 %; Neutrophils # (A) 13.56 10*3/uL (1.80-7.70); Neutrophils % (A) 89.6 %; Platelet Count 288 10*3/uL (140-440); RBC 3.31 10*6/uL (4.10-5.20); RDW 18.8 % (11.5-14.5); WBC 15.14 10*3/uL (4.50-10.00)
[2024-11-15 19:25] LABS: INR 1.1 (<1.2); Prothrombin Time 11.6 sec (10.0-12.5)
[2024-11-15 19:25] LABS: HGB 6.7 g/dL (12.0-15.0)
[2024-11-15 19:26] LABS: African American GFR (CKD) 85 (>60 ml/min/1.73 sqM); Anion Gap 11 mmol/L; Blood Urea Nitrogen 25 mg/dL (7-17); Calcium 8.3 mg/dL (8.4-10.2); Carbon Dioxide 22 mmol/L (22-30); Chloride 98 mmol/L (98-107); Glucose 156 mg/dL (74-99); Non-African American GFR(CKD) 74 (>60 ml/min/1.73 sqM); Potassium 3.7 mmol/L (3.5-5.1); Sodium 131 mmol/L (137-145)
--- NOTE | 2024-11-15 19:27 | P.GSCN ---
History of Present Illness Consult date: 11/15/24 History of present illness: Patient is a 79-year-old female who was brought in by ambulance for pain worsened in her right lower extremity. Initially evaluation from the ER and discussion with the on-call physician were in regards to a patient having an occluded iliac stent but since the patient was able to ambulate and have some degree of motor sensor to her leg the discussion was had in regards to possibly discharge home and follow-up. The patient was subsequently admitted to observation for evaluation and upon my arrival to see the patient the next afternoon, there have been no further notes or documentation in the chart other than from the ER physician. Upon my evaluation and discussion of the patient the patient states she has been having pain in her leg for the past few days that has gotten significantly worsened. She states that she has had some issues with numbness and not being able to feel her leg normally worse on the right than on the left and this has been going on for a few weeks. She also states her bigger concern is her shortness of breathWhich has not really been fully evaluated. She is here on oxygen which she is not on any at home. She has been on pain medication throughout her stay routinely for pain in her right lower extremity. Again she is still able to move her leg and ambulate to the bathroom Past Medical History Past Medical History: COPD, Hyperlipidemia, Hypertension, Osteoarthritis (OA), Vascular Disorder Additional Past Medical History / Comment(s): osteoporosis, blockage RLE History of Any Multi-Drug Resistant Organisms: None Reported Past Surgical History: Breast Surgery, Hysterectomy Additional Past Surgical History / Comment(s): benign left breast bx., abd. aortogram Past Anesthesia/Blood Transfusion Reactions: No Reported Reaction Past Psychological History: No Psychological Hx Reported Smoking Status: Former smoker Past Alcohol Use History: None Reported Additional Past Alcohol Use History / Comment(s): 1ppd since age 13 but quit smoking 09-30-21, used to drink 1 beer every Wednesday but hasn't since September Past Drug Use History: None Reported Additional Drug Use History / Comment(s): Drinks one beer every Wednesday. Smokes a pack of cigarettes a day. Medications and Allergies Home Medications Medication Instructions Recorded Confirmed Type Alendronate Sodium [Fosamax] 70 mg PO TREJO 09/29/21 11/14/24 History Atorvastatin [Lipitor] 80 mg PO HS 12/25/21 11/14/24 History amLODIPine [Norvasc] 5 mg PO DAILY #30 tab 12/31/21 11/14/24 Rx Escitalopram [Lexapro] 5 mg PO DAILY 11/14/24 11/14/24 History Furosemide [Lasix] 20 mg PO DAILY 11/14/24 11/14/24 History Allergies Allergy/AdvReac Type Severity Reaction Status Date / Time No Known Allergies Allergy Verified 11/14/24 14:29 Surgical - Exam Vital Signs Temp Pulse Resp BP Pulse Ox 97.9 F 97 22 131/63 97 11/14/24 13:11 11/14/24 13:11 11/14/24 13:11 11/14/24 13:11 11/14/24 13:11 General is a pleasant female in moderate respiratory appearing distress on nasal O2 at 4 L. Conversational dyspnea. Heart appears mildly tachycardic. Abdomen is soft, well-healed incisions. Difficult to palpate pulses throughout. Nonpalpable pedal pulses. Nonpalpable femoral pulse on the right. Weakly palpable left femoral pulse. Easily palpable left radial and brachial pulses bilateral lower extremity motor intact, diminished sensory, severely delayed refill, Results CT scan from visit 617 reviewed. Unfortunately was done as a lower extremity therefore full aortic evaluation is not achieved. There is visual evidence of an occluded limb of the right iliac side of the graft. This is not commented upon in the imaging. There is mild narrowing of the left iliac limb. 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 Initially the recommendation is to go forward with tPA thrombolysis via brachial approach of this area. Risk and benefits of the procedure were discussed including but not limited to bleeding, infection, injury to the access spot and need for further surgical interventions. He seemingly understood and initial plans were made to go forward with this. While this was happening, the patient then tried to ambulate to the restroom and on her way back did have significantly decreasing work of breathing with severe shortness of breath requiring more oxygen at that time I was present and did call in a team had a stat EKG and chest x-ray for full evaluation. The patient was made ICU status . Her hemoglobin on repeat laboratories did show hemoglobin was 6.9 again do not believe there is any active bleeding however I do think she needs blood noted to improve her carrying capacity and oxygenation. Overall at this point I do not believe the patient is in satisfactory condition in order to tolerate intervention. Again she does not appear to be bleeding, will revisit plans for tomorrow potentially with thrombolysis if amenable versus open thrombectomy. Did discuss that the tPA has a high risk of bleeding concerns b ut overall the patient's general comorbidities put her at higher risk for other cardiopulmonary concerns. Discussion with the daughter and patient they seemingly understand and we will reevaluate this tomorrow to see if she has improved there is any differences in change of her overall clinical picture. Greater than 55 minutes was spent with this patient in direct contact and services rendered as well as coordination and laboratory/imaging evaluation
--- NOTE | 2024-11-15 19:33 | CT ---
EXAMINATION TYPE: CT angio chest DATE OF EXAM: 11/15/2024 7:07 PM COMPARISON: Similar chest radiograph. CLINICAL INDICATION: Female, 79 years old with history of sob; shortness of breath TECHNIQUE/CONTRAST: CTA scan of the thorax is performed with IV Contrast, patient injected with 100 mL of Isovue 300, MIP images are created and reviewed these are created on a separate workstation.. CT DLP: 191.1 mGycm, Automated exposure control for dose reduction was used. FINDINGS: Pulmonary Artery: There is no evidence for a filling defect within the pulmonary vasculature to sugge st acute pulmonary embolism. The pulmonary artery is of normal size. Lungs/Pleura: Diffuse interlobular septal thickening, moderate right and small left pleural effusions . Additionally, there is superimposed bronchial wall thickening and scattered mucus plugging with reg ions of atelectasis. Calcified granulomas in the left upper lobe. Consolidative changes in the lower lobes which could reflect compressive atelectasis and/or pneumonia. Airway: Large airways are patent. Heart: The heart is moderately enlarged for size. Atherosclerosis of the coronary arterial vasculatur e. Vasculature: No evidence of aortic aneurysm. Mediastinum: Enlarged lymph nodes with largest subcarinal node measuring 20 mm in short access. There is prominent bilateral hilar lymphadenopathy. Musculoskeletal: No acute osseous abnormalities Soft Tissues/lymph nodes: Unremarkable. Lower neck: No significant findings. Upper Abdomen: Indeterminant hypodensity within the left renal parenchyma, not well evaluated on this pulmonary embolism study. Prior cortical necrosis would be considered a possible etiology given chromium plater joshua dissection flap within the abdominal aorta. IMPRESSION: 1. Cardiomegaly, moderate right and small left pleural effusions with diffuse interlobular septal th ickening compatible with pulmonary edema. 2. Superimposed mucous plugging, bronchial wall thickening and scattered regions of atelectasis and consolidation which could reflect developing pneumonia in the proper clinical setting. 3. Prominent mediastinal and bilateral hilar lymph nodes, possibly related to reactive infectious or inflammatory etiology. [facility], , 11/15/2024 7:30 PM
[2024-11-15] MEDS ORDERED: IPRATROPIUM-ALBUTEROL 3 ML NEB INHALATION PRN (19:46)
[2024-11-15] MEDS: NICOTINE 21MG/24HR PATCH TRANSDERM SCH (20:05)
[2024-11-15] MEDS: HEPARIN SOD,PORK IN 0.45% NACL 25,000 UNIT in 0.45% NACL 1 250ML.BAG IV SCH (20:09)
[2024-11-15] MEDS: SYMBICORT 160-4.5 MCG INHALER INHALATION SCH (21:05)
[2024-11-15] MEDS: IPRATROPIUM-ALBUTEROL 3 ML NEB INHALATION SCH (21:05)
--- NOTE | 2024-11-15 21:13 | P.HPIM ---
History of Present Illness H&P Date: 11/14/24 Chief Complaint: Right lower extremity pain This is a 79-year-old female with past medical history significant for PVD, claudication, aortobifemoral artery bypass 12/19, left femoral artery endarterectomy, extensive nicotine dependence, COPD, hypertension, hyperlipidemia presented to the ER with complaints of right lower extremity pain. Patient presented to the ER earlier in the a.m. with bilateral lower extremity pain, worse on the right with some numbness over the last three weeks with limited ability walking, sustained a fall,denying head trauma or syncope. CT angio bilateral lower extremities reported obstruction of the visualized portion of the right iliac stent, collateral flow reconstitutes the right superficial femoral artery, several areas of stenosis within the superficial femoral arteries bilaterally which remain patent to the popliteal artery, bilateral patent lower extremity popliteal and trifurcation vessels patent to the ankle. ER reports discussing with vascular surgery recommending discharge with instructions to follow-up with Dr. Liu at their office in the afternoon. Apparently right lower extremity pain, numbness continued to worsen and patient returned to the ER and was unable to keep her vascular appointment. denies any chest pain, palpitations or shortness of breath.Denies any lightheadedness dizziness or focal deficits. Currently denies chest pain, palpitations or shortness of breath. Vascular surgery on consult with further reccomendations to follow. Afebrile, labs pending. Review of Systems ROS Statement: Those systems with pertinent positive or pertinent negative responses have been documented in the HPI. ROS Other: All systems not noted in ROS Statement are negative. Past Medical History Past Medical History: COPD, Hyperlipidemia, Hypertension, Osteoarthritis (OA), Vascular Disorder Additional Past Medical History / Comment(s): osteoporosis, blockage RLE History of Any Multi-Drug Resistant Organisms: None Reported Past Surgical History: Breast Surgery, Hysterectomy Additional Past Surgical History / Comment(s): benign left breast bx., abd. aortogram Past Anesthesia/Blood Transfusion Reactions: No Reported Reaction Past Psychological History: No Psychological Hx Reported Smoking Status: Former smoker Past Alcohol Use History: None Reported Additional Past Alcohol Use History / Comment(s): 1ppd since age 13 but quit smoking 09-30-21, used to drink 1 beer every Wednesday but hasn't since September Past Drug Use History: None Reported Additional Drug Use History / Comment(s): Drinks one beer every Wednesday. Smokes a pack of cigarettes a day. Medications and Allergies Home Medications Medication Instructions Recorded Confirmed Type Alendronate Sodium [Fosamax] 70 mg PO TREJO 09/29/21 11/14/24 History Atorvastatin [Lipitor] 80 mg PO HS 12/25/21 11/14/24 History amLODIPine [Norvasc] 5 mg PO DAILY #30 tab 12/31/21 11/14/24 Rx Escitalopram [Lexapro] 5 mg PO DAILY 11/14/24 11/14/24 History Furosemide [Lasix] 20 mg PO DAILY 11/14/24 11/14/24 History Allergies Allergy/AdvReac Type Severity Reaction Status Date / Time No Known Allergies Allergy Verified 11/14/24 14:29 Physical Exam Vitals: Vital Signs 11/14/24 11/14/24 11/14/24 13:11 13:50 14:03 Temperature 97.9 F Pulse Rate 97 88 Respiratory 22 14 Rate Blood Pressure 131/63 121/58 O2 Sat by Pulse 97 93 L 82 L Oximetry 11/14/24 11/14/24 14:08 16:09 Temperature 98.2 F Pulse Rate 88 Respiratory 14 Rate Blood Pressure 120/59 O2 Sat by Pulse 94 L 92 L Oximetry PHYSICAL EXAM: VITAL SIGNS: [As above] GENERAL: 79-year-old female, pleasant, alert and oriented x 3, sitting up on stretcher, no acute distress. HEENT: Normocephalic, atraumatic conjunctivae pale. eyes normal. NECK: Supple, No JVD. CARDIOVASCULAR: S1, S2 regular, No murmur RESPIRATION: Unlabored, equal air entry, bilateral bases diminished. ABDOMEN: Soft, nondistended, nontender, no guarding, no rigidity, positive bowel sounds. EXTREMITIES: Bilateral lower extremities no edema,positive Doppler DP pulses, warm; right lower extremity cooler. NERVOUS SYSTEM: Cranial N 2-12 grossly normal.No focal deficit. Skin: Warm and dry, no rash Results CBC & Chem 7: 11/15/24 18:46 11/15/24 19:00 Thrombosis Risk Factor Assmnt - Choose All That Apply Any of the Below Risk Factors Present?: Yes Assessment and Plan Assessment: Right lower extremity pain, in a patient with history of aortobifemoral arterial bypass left femoral endarterectomy History of chronic claudication PVD Extensive nicotine dependence, has smoked one pack per day since the age of 13 History of iron deficiency anemia Moderate protein calorie malnutrition, BMI 16 COPD,severe Hypertension Hyperlipidemia Alcohol use, reports none since September 2024 Plan: Continue on current medication regimen ,monitoring and symptomatic treatment. Vascular surgery consult in place, recommendations pending. Pain management. IV fluid hydration. Maintain O2 sat at 91%, secondary to severe COPD. home meds have been resumed. Maintain supportive care. Prognosis guarded given multiple complex medical issues and is at extreme high risk secondary to her cardiopulmonary, peripheral vascular, arterial occlusive disease. The impression and plan of care has been dictated as directed. : I performed a history and examination of this patient, discussed the same with the dictator. I agree with the dictator's note ,documented as a scribe. Any additional findings or plans will be noted.
--- NOTE | 2024-11-15 21:25 | P.PN ---
Subjective Progress Note Date: 11/15/24 H&P Date: 11/14/24 Chief Complaint: Right lower extremity pain This is a 79-year-old female with past medical history significant for PVD, claudication, aortobifemoral artery bypass 12/19, left femoral artery endarterectomy, extensive nicotine dependence, COPD, hypertension, hyperlipidemia presented to the ER with complaints of right lower extremity pain. Patient presented to the ER earlier in the a.m. with bilateral lower extremity pain, worse on the right with some numbness over the last three weeks with limited ability walking, sustained a fall,denying head trauma or syncope. CT angio bilateral lower extremities reported obstruction of the visualized portion of the right iliac stent, collateral flow reconstitutes the right superficial femoral artery, several areas of stenosis within the superficial femoral arteries bilaterally which remain patent to the popliteal artery, bilateral patent lower extremity popliteal and trifurcation vessels patent to the ankle. ER reports discussing with vascular surgery recommending discharge with instructions to follow-up with Dr. Liu at their office in the afternoon. Apparently right lower extremity pain, numbness continued to worsen and patient returned to the ER and was unable to keep her vascular appointment. denies any chest pain, palpitations or shortness of breath.Denies any lightheadedness dizziness or focal deficits. Currently denies chest pain, palpitations or shortness of breath. Vascular surgery on consult with further reccomendations to follow. Afebrile, labs pending. 11/15/2024 complains of right lower extremity pain, vascular surgery evaluation pending. Maintained on IV fluid hydration. Denies chest pain, palpitations or shortness of breath. Tolerating diet, consumed 50% of breakfast and 75% of lunch. Denies nausea vomiting or diarrhea.Denies abdominal pain. Objective - Vital Signs Vital signs: Vital Signs Temp 98.4 F 11/15/24 19:15 Pulse 92 11/15/24 21:07 Resp 32 H 11/15/24 20:15 BP 118/58 11/15/24 20:15 Pulse Ox 95 11/15/24 21:09 FiO2 Intake & Output 11/15/24 11/15/24 11/16/24 06:59 18:59 06:59 Intake Total 500 50 Output Total 2 0 Balance 498 50 Weight 47.174 kg Intake: IV 50 Sodium Chloride 0.9% 1, 50 000 ml @ 50 mls/hr IV . Q20H [facility] Rx#:[id number] Oral 500 Blood Product 0 Unit 0 Output: Urine 2 0 Other: Voiding Method Toilet External Catheter # Voids 1 - Exam PHYSICAL EXAM: VITAL SIGNS: [As above] GENERAL: 79-year-old female, pleasant, alert and oriented x 3, sitting up in bed, no acute distress. HEENT: Normocephalic, atraumatic conjunctivae pale. MMM. NECK: Supple, No JVD. CARDIOVASCULAR: S1, S2 regular, No murmur RESPIRATION: Unlabored, equal air entry, bilateral bases diminished. ABDOMEN: Soft, nondistended, nontender, no guarding, no rigidity, positive bowel sounds. EXTREMITIES: Bilateral lower extremities no edema,positive Doppler DP pulses, warm; right lower extremity cooler NERVOUS SYSTEM: Cranial N 2-12 grossly normal.No focal deficit. Skin: Warm and dry, no rash - Labs CBC & Chem 7: 11/15/24 18:46 11/15/24 19:00 Labs: Abnormal Lab Results - Last 24 Hours (Table) 11/15/24 11/15/24 11/15/24 Range/Units 18:21 18:46 18:46 WBC 15.14 H (4.50-10.00) 10*3/uL RBC 3.31 L (4.10-5.20) 10*6/uL Hgb 6.7 L* (12.0-15.0) g/dL Hct 22.8 L (37.2-46.3) % MCV 68.9 L (80.0-97.0) fL MCH 20.2 L (27.0-32.0) pg MCHC 29.4 L (32.0-37.0) g/dL Immature Gran # 0.12 H (0.00-0.04) 10*3/uL Neutrophils # 13.56 H (1.80-7.70) 10*3/uL Lymphocytes # 0.84 L (0.90-5.00) 10*3/uL Eosinophils # 0.00 L (0.04-0.35) 10*3/uL ABG pH 7.46 H (7.35-7.45) ABG pCO2 32 L (35-45) mmHg ABG pO2 51 L* (83-108) mmHg ABG O2 Saturation 85.3 L (94-97) % Hemoglobin 6.9 L* (11.4-16.0) gm/dL Sodium (137-145) mmol/L BUN (7-17) mg/dL Glucose (74-99) mg/dL POC Glucose (mg/dL) (70-110) mg/dL Calcium (8.4-10.2) mg/dL Crossmatch See Detail 11/15/24 11/15/24 Range/Units 19:00 19:12 WBC (4.50-10.00) 10*3/uL RBC (4.10-5.20) 10*6/uL Hgb (12.0-15.0) g/dL Hct (37.2-46.3) % MCV (80.0-97.0) fL MCH (27.0-32.0) pg MCHC (32.0-37.0) g/dL Immature Gran # (0.00-0.04) 10*3/uL Neutrophils # (1.80-7.70) 10*3/uL Lymphocytes # (0.90-5.00) 10*3/uL Eosinophils # (0.04-0.35) 10*3/uL ABG pH (7.35-7.45) ABG pCO2 (35-45) mmHg ABG pO2 (83-108) mmHg ABG O2 Saturation (94-97) % Hemoglobin (11.4-16.0) gm/dL Sodium 131 L (137-145) mmol/L BUN 25 H (7-17) mg/dL Glucose 156 H (74-99) mg/dL POC Glucose (mg/dL) 168 H (70-110) mg/dL Calcium 8.3 L (8.4-10.2) mg/dL Crossmatch Assessment and Plan Assessment: Right lower extremity pain, in a patient with history of aortobifemoral arterial bypass left femoral endarterectomy History of chronic claudication PVD Extensive nicotine dependence, has smoked one pack per day since the age of 13 History of iron deficiency anemia Moderate protein calorie malnutrition, BMI 16 COPD,severe Hypertension Hyperlipidemia Plan: Continue on current medication regimen ,monitoring and symptomatic treatment. Vascular surgery consult in place, recommendations pending. Pain management. IV fluid hydration. Aggressive pulmonary toileting with incentive spirometer, nebulized bronchodilators and LABA ordered. Smoking cessation reinforced, nicotine patch ordered. The impression and plan of care has been dictated as directed. : I performed a history and examination of this patient, discussed the same with the dictator. I agree with the dictator's note ,documented as a scribe. Any additional findings or plans will be noted.
[2024-11-16] MEDS: FUROSEMIDE 10 MG/ML 4 ML VIAL IV SCH (00:32)
[2024-11-16 03:00] LABS: MCH 22.2 pg (27.0-32.0); MCHC 30.3 g/dL (32.0-37.0); MCV 73.3 fL (80.0-97.0); Mean Platelet Volume 10.6 fL (9.5-12.2); Platelet Count 279 10*3/uL (140-440); RBC 4.09 10*6/uL (4.10-5.20); RDW 21.5 % (11.5-14.5); WBC 13.02 10*3/uL (4.50-10.00)
--- NOTE | 2024-11-16 03:16 | P.CNPUL ---
History of Present Illness Consult date: 11/16/24 Requesting physician: Anna Marie Giraldo Reason for consult: other (ICU management) Chief complaint: Leg pain History of present illness: Patient is 79-year-old female with past medical history significant for peripheral arterial disease with previous aortic bifemoral bypass in 2021, intermittent claudication symptoms, previous nicotine dependence, hypertension, hyperlipidemia, COPD. Her primary care provider is Dr. Ramo Hester. Of note, patient has been having bilateral intermittent leg pain for some time, however, developed acute worsening of right lower extremity pain even at rest over the last 24 hours. Accompanied with trouble ambulating and leg numbness. Did undergo CT angio of the lower extremities bilaterally on 11/14/2024 remarkable for obstruction of the visualized portion of the right iliac stent. Collateral flow reconstitutes at the right superficial femoral artery. There were several areas of stenosis within the superficial femoral arteries bilaterally which r emain patent to the popliteal artery. Bilateral patent lower extremity popliteal and trifurcation vessels patent to the ankle. Vascular surgery is on the case. Patient previously started on heparin. Rapid response called yesterday evening at 1742 as the patient was noted to be have increased work of breathing following ambulation. Vascular surgery was evaluating the patient at this time. SpO2 reported in the 80s on 6 L/min nasal cannula. ABG remarkable for PO2 of 51, PCO2 of 32, pH of 7.46. Patient was placed on a nonrebreather and transferred to the intensive care unit. CT angiogram did not show any filling defects consistent with pulmonary embolism. There is diffuse interlobular septal thickening and moderate right and small left pleural effusions concerning for pulmonary edema. Additionally, superimposed bronchial wall thickening and scattered mucous plugging with regions of atelectasis. Consolidative changes in the lower lobes could reflect compressive atelectasis and/or pneumonia. Prominent mediastinal and bilateral hilar lymph nodes possibly reactive to infectious or inflammatory process. Repeat labs including a CBC with a WBC count of 15, hemoglobin is dropped from 7.4 g/dL to 6.7 g/dL, platelets 288. No obvious active bleeding. No melena, hematochezia, vomiting or hematemesis. Patient has been previously started on systemic IV heparin and her most recent APTT is 25. EKG, sinus rhythm, rate 87 bpm, frequent PACs, no acute ischemic changes. CMP: Sodium 131, potassium 3.7, chloride 98, serum bicarb 22, BUN 25, creatinine 0.77, glucose 156. Patient is now being seen in the intensive care unit. She is on BiPAP with settings 12/5 and FiO2 of 60%. Nontachypneic. Generating adequate tidal volumes SpO2 is reading in the mid 90s. She does not appear to be any respiratory distress. She is alert and oriented. Does not appear anxious. Able to carry out full conversation. Denies any chest pain. Denies any lower extremity edema. Denies history of heart failure. Does report history of COPD. Reportedly does not take any inhalers at home. Denies any infectious-like symptoms or outpatient treatment for pneumonia. Denies any sick contacts. No fevers or chills. No coughing, wheezing, sputum production, hemoptysis. Her leg pain is improved. Pulses found with Doppler only. Right foot is cool. Heparin is infusing per protocol. Currently, receiving a unit of packed red blood cells. Normal saline infusing at 50 mL/h. Current vital signs: Temperature 97.9 F, heart 87 bpm, blood pressure 120/66 mmHg, nontachypneic, on BiPAP with above-mentioned settings. Review of Systems Constitutional: Denies chills, Denies fatigue, Denies fever, Denies poor appetite, Denies sweats, Denies weight gain, Denies weight loss Ears, nose, mouth and throat: Denies headache, Denies nasal congestion, Denies nasal discharge, Denies post-nasal drip, Denies sinus pain, Denies sinus pressure, Denies sore throat Cardiovascular: Denies chest pain, Denies leg edema, Denies lightheadedness, Denies orthopnea, Denies palpitations, Denies paroxysmal nocturnal dyspnea, D enies syncope Respiratory: Reports dyspnea, Denies congestion, Denies cough, Denies excessive sputum, Denies hemoptysis, Denies home oxygen, Denies wheezing Gastrointestinal: Denies abdominal pain, Denies constipation, Denies hematemesis, Denies hematochezia, Denies melena, Denies nausea, Denies vomiting Genitourinary: Denies dysuria, Denies hematuria Musculoskeletal: Reports gait dysfunction, Reports leg numbness/tingling, Denies limitation of motion Integumentary: Denies color changes, Denies foot/leg ulcers Neurological: Reports numbness (Right lower extremity), Reports paresthesias (Right lower extremity), Denies paralysis, Denies seizures, Denies syncope, Denies weakness Psychiatric: Denies anxiety, Denies depression Past Medical History Past Medical History: COPD, Hyperlipidemia, Hypertension, Osteoarthritis (OA), Vascular Disorder Additional Past Medical History / Comment(s): osteoporosis, blockage RLE History of Any Multi-Drug Resistant Organisms: None Reported Past Surgical History: Breast Surgery, Hysterectomy Additional Past Surgical History / Comment(s): benign left breast bx., abd. aortogram Past Anesthesia/Blood Transfusion Reactions: No Reported Reaction Past Psychological History: No Psychological Hx Reported Smoking Status: Former smoker Past Alcohol Use History: None Reported Additional Past Alcohol Use History / Comment(s): 1ppd since age 13 but quit smoking 09-30-21, used to drink 1 beer every Wednesday but hasn't since September Past Drug Use History: None Reported Additional Drug Use History / Comment(s): Drinks one beer every Wednesday. Smokes a pack of cigarettes a day. Medications and Allergies Home Medications Medication Instructions Recorded Confirmed Type Alendronate Sodium [Fosamax] 70 mg PO TREJO 09/29/21 11/14/24 History Atorvastatin [Lipitor] 80 mg PO HS 12/25/21 11/14/24 History amLODIPine [Norvasc] 5 mg PO DAILY #30 tab 12/31/21 11/14/24 Rx Escitalopram [Lexapro] 5 mg PO DAILY 11/14/24 11/14/24 History Furosemide [Lasix] 20 mg PO DAILY 11/14/24 11/14/24 History Allergies Allergy/AdvReac Type Severity Reaction Status Date / Time No Known Allergies Allergy Verified 11/14/24 14:29 Physical Exam Vitals: Vital Signs Temp Pulse Pulse Resp BP BP Pulse Ox 11/16/24 00:24 97.9 F 87 18 120/66 93 L 11/16/24 00:15 81 21 118/65 95 11/16/24 00:00 94 98 19 125/69 94 L 11/15/24 23:45 85 18 120/65 91 L 11/15/24 23:30 89 21 118/64 92 L 11/15/24 23:15 88 21 116/62 93 L 11/15/24 23:00 82 21 125/64 96 11/15/24 22:45 85 21 139/69 95 11/15/24 22:40 11/15/24 22:30 92 28 H 150/76 99 11/15/24 22:24 11/15/24 22:15 108 H 25 H 132/66 89 L 11/15/24 22:00 96 32 H 124/60 91 L 11/15/24 21:45 98.5 F 98 28 H 124/60 94 L 11/15/24 21:25 98.1 F 93 25 H 120/62 96 11/15/24 21:16 90 11/15/24 21:15 98.3 F 90 41 H 114/63 91 L 11/15/24 21:09 95 11/15/24 21:07 92 11/15/24 21:00 93 22 153/74 95 11/15/24 20:45 45 H 79 L 11/15/24 20:30 95 21 121/59 95 11/15/24 20:15 95 32 H 118/58 97 11/15/24 20:00 92 98 29 H 128/66 98 11/15/24 19:45 101 H 33 H 111/53 96 11/15/24 19:30 91 24 121/60 99 11/15/24 19:15 98.4 F 97 32 H 129/64 99 11/15/24 15:00 97.7 F 85 90/44 90 L 11/15/24 07:00 97.6 F 100 17 118/62 94 L 11/15/24 02:47 97.8 F 87 17 115/61 94 L FiO2 11/16/24 00:24 11/16/24 00:15 11/16/24 00:00 60 11/15/24 23:45 11/15/24 23:30 11/15/24 23:15 11/15/24 23:00 11/15/24 22:45 11/15/24 22:40 60 11/15/24 22:30 11/15/24 22:24 100 11/15/24 22:15 11/15/24 22:00 11/15/24 21:45 11/15/24 21:25 11/15/24 21:16 11/15/24 21:15 11/15/24 21:09 11/15/24 21:07 11/15/24 21:00 11/15/24 20:45 11/15/24 20:30 11/15/24 20:15 11/15/24 20:00 11/15/24 19:45 11/15/24 19:30 11/15/24 19:15 11/15/24 15:00 11/15/24 07:00 11/15/24 02:47 Intake and Output 11/15/24 11/15/24 11/16/24 14:59 22:59 06:59 Intake Total 500 460 410 Output Total 2 0 0 Balance 498 460 410 Intake: IV 150 100 Sodium Chloride 0.9% 1, 150 100 000 ml @ 50 mls/hr IV . Q20H [facility] Rx#:[id number] Oral 500 Blood Product 310 310 Rc As-1 Unit 0 310 [id number] Output: Urine 2 0 0 Other: Voiding Method Toilet External Catheter External Catheter Weight 47.174 kg GENERAL EXAM: Alert, 79-year-old female, BiPAP with settings 12/5 and FiO2 of 60%, and tolerating this well. Does not appear to be in distress. HEAD: Normocephalic and atraumatic EYES: Normal reaction of pupils, equal size. NOSE: Clear with pink turbinates. THROAT: No erythema or exudates. NECK: No masses, no JVD. CHEST: No chest wall deformity. LUNGS: Equal air entry with diminished bibasilar lung sounds. No wheezing, rhonchi, crackles. On BiPAP with above-mentioned settings. Nontachypneic. Generating adequate tidal volumes CVS: S1 and S2 normal with systolic murmur, regular rhythm. No other extra heart sounds ABDOMEN: No hepatosplenomegaly, active bowel sounds, no guarding or rigidity. SPINE: No scoliosis or deformity SKIN: No rashes CENTRAL NERVOUS SYSTEM: No focal deficits, tone is normal in all 4 extremities. EXTREMITIES: Able to move bilateral lower extremities without weakness, right foot is cool to palpation left foot is warm, distal pulses difficult to find even with Doppler. Lower extremities are pink. No edema or cyanosis Results - Laboratory Findings CBC and BMP: 11/15/24 18:46 11/15/24 19:00 ABG ABG pH 7.46 (7.35-7.45) H 11/15/24 18:21 ABG pCO2 32 mmHg (35-45) L 11/15/24 18:21 ABG pO2 51 mmHg (83-108) L* 11/15/24 18:21 ABG O2 Saturation 85.3 % (94-97) L 11/15/24 18:21 PT/INR, D-dimer PT 11.6 sec (10.0-12.5) 11/15/24 19:00 INR 1.1 (<1.2) 11/15/24 19:00 Abnormal lab findings: Abnormal Labs 11/14/24 11/14/24 11/15/24 13:38 13:38 18:21 WBC 10.23 H RBC 3.56 L Hgb 7.4 L Hct 24.0 L MCV 67.4 L MCH 20.8 L MCHC 30.8 L Immature Gran # 0.11 H Neutrophils # 8.00 H Lymphocytes # Eosinophils # 0.00 L ABG pH 7.46 H ABG pCO2 32 L ABG pO2 51 L* ABG O2 Saturation 85.3 L Hemoglobin 6.9 L* Sodium 133 L BUN 20 H Glucose 114 H POC Glucose (mg/dL) Calcium 8.2 L Crossmatch 11/15/24 11/15/24 11/15/24 18:46 18:46 19:00 WBC 15.14 H RBC 3.31 L Hgb 6.7 L* Hct 22.8 L MCV 68.9 L MCH 20.2 L MCHC 29.4 L Immature Gran # 0.12 H Neutrophils # 13.56 H Lymphocytes # 0.84 L Eosinophils # 0.00 L ABG pH ABG pCO2 ABG pO2 ABG O2 Saturation Hemoglobin Sodium 131 L BUN 25 H Glucose 156 H POC Glucose (mg/dL) Calcium 8.3 L Crossmatch See Detail 11/15/24 19:12 WBC RBC Hgb Hct MCV MCH MCHC Immature Gran # Neutrophils # Lymphocytes # Eosinophils # ABG pH ABG pCO2 ABG pO2 ABG O2 Saturation Hemoglobin Sodium BUN Glucose POC Glucose (mg/dL) 168 H Calcium Crossmatch - Diagnostic Findings Chest x-ray: image reviewed CT scan - chest: image reviewed Assessment and Plan Assessment: Acute hypoxemic respiratory failure, currently requiring BiPAP, chest CT angiogram did not show any filling defects concerning for pulmonary embolism. Diffuse interlobular septal thickening and moderate right and small left pleural effusions concerning for pulmonary edema. Additionally, superimposed bronchial wall thickening and scattered mucous plugging with regions of atelectasis. Consolidative changes in the lower lobes could reflect compressive atelectasis or developing pneumonia. Prominent mediastinal and bilateral hilar lymph nodes possibly reactive to infectious or inflammatory process. 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 Peripheral arterial disease, with previous aortic bifemoral bypass and left femoral artery endarterectomy in 2021 Acute on chronic anemia; microcytic, hypochromic, receiving 1 unit PRBCs Acute leukocytosis Hypertension Hyperlipidemia Former tobacco smoker, quit in 2021 Anxiety/depression Plan: Patient has been transferred to the intensive care unit Continue BiPAP with current settings Repeat CXR in the morning Add IV Lasix 40 mg twice daily Add DuoNebs on the clock Add budesonide and formoterol inhalations Add empiric Zosyn Currently receiving 1 unit PRBCs Monitor H&H and transfuse for hemoglobin less than 7 g/dL Continues on IV heparin per protocol, monitor for active bleeding Vascular surgery is on the case, reportedly patient may undergo catheter directed tPA thrombolysis or open thrombectomy. Case to be reviewed with my supervising physician, additional recommendations forthcoming I have personally seen and examined the patient, performed the documentation and the assessment and plan as written. Number of minutes spent on the visit:25 Time with Patient: Greater than 30
[2024-11-16 03:27] LABS: INR 1.1 (<1.2); Prothrombin Time 11.9 sec (10.0-12.5)
[2024-11-16 03:35] LABS: HGB 9.1 g/dL (12.0-15.0)
[2024-11-16] MEDS: PIPERACILLIN-TAZOBACTAM 3.375 GM in SODIUM CHLORIDE 0.9% 100 ML IVPB SCH (03:44)
[2024-11-16 05:45] LABS: Basophils # (A) 0.04 10*3/uL (0.00-0.10); Basophils % (A) 0.3 %; HCT 34.6 % (37.2-46.3); HGB 10.4 g/dL (12.0-15.0); Lymphocytes # (A) 2.27 10*3/uL (0.90-5.00); Lymphocytes % (A) 14.7 %; MCH 22.2 pg (27.0-32.0); MCHC 30.1 g/dL (32.0-37.0); MCV 73.8 fL (80.0-97.0); Mean Platelet Volume 10.2 fL (9.5-12.2); Monocytes # (A) 0.83 10*3/uL (0.20-1.00); Monocytes % (A) 5.4 %; Neutrophils % (A) 78.6 %; Platelet Count 292 10*3/uL (140-440); RBC 4.69 10*6/uL (4.10-5.20); WBC 15.49 10*3/uL (4.50-10.00)
[2024-11-16 06:14] LABS: ALT 20 U/L (4-34); AST 55 U/L (14-36); African American GFR (CKD) 87 (>60 ml/min/1.73 sqM); Albumin 3.6 g/dL (3.5-5.0); Alkaline Phosphatase 101 U/L (38-126); Anion Gap 11 mmol/L; Blood Urea Nitrogen 24 mg/dL (7-17); Calcium 8.3 mg/dL (8.4-10.2); Carbon Dioxide 26 mmol/L (22-30); Chloride 97 mmol/L (98-107); Glucose 108 mg/dL (74-99); Non-African American GFR(CKD) 75 (>60 ml/min/1.73 sqM); Potassium 4.2 mmol/L (3.5-5.1); Sodium 134 mmol/L (137-145); Total Bilirubin 1.8 mg/dL (0.2-1.3); Total Protein 7.5 g/dL (6.3-8.2)
[2024-11-16] MEDS: BUDESONIDE 1 MG/2 ML NEBU INHALATION SCH (07:40)
[2024-11-16] MEDS: FORMOTEROL FUMARATE 20 MCG/2 ML NEBU INHALATION SCH (07:40)
[2024-11-16] MEDS: ACETAMINOPHEN TAB 325 MG TAB PO PRN (08:08)
--- NOTE | 2024-11-16 10:44 | P.PN ---
Subjective Progress Note Date: 11/16/24 Patient is seen and examined today in the ICU. She is currently undergoing echocardiogram. She is on BiPAP FiO2 100. Currently on a heparin drip. She received 1 unit of blood yesterday repeat hemoglobin today 10.4. Patient is very lethargic, not reporting any pain at this time. Patient had a chest CTA yesterday with findings of cardiomegaly, moderate right and small left pleural effusions with diffuse interlobular septal thickening compatible with pulmonary edema. Superimposed mucous plugging, bronchial wall thickening and scattered regions of atelectasis and consolidation which could reflect developing pneumonia in the proper clinical setting. Prominent mediastinal and bilateral hilar lymph nodes, possibly related to reactive infectious or inflammatory etiology. Objective - Vital Signs Vital signs: Vital Signs Temp 101.1 F H 11/16/24 08:00 Pulse 98 11/16/24 08:01 Resp 33 H 11/16/24 08:01 BP 139/72 11/16/24 08:00 Pulse Ox 92 L 11/16/24 08:00 FiO2 100 11/16/24 08:00 Intake & Output 11/15/24 11/16/24 11/16/24 18:59 06:59 18:59 Intake Total 500 1320 50 Output Total 2 1230 275 Balance 498 90 -225 Weight 47.174 kg 49.351 kg Intake: IV 700 50 Piperacillin-Tazobactam 3 100 .375 gm In Sodium Chloride 0.9% 100 ml @ 25 mls/hr IVPB Q8H EDYTA Rx#: [id number] Sodium Chloride 0.9% 1, 600 50 000 ml @ 50 mls/hr IV . Q20H EDYTA Rx#:[id number] Oral 500 Blood Product 620 Rc As-1 Unit 310 [id number] Output: Urine 2 1230 275 Other: Voiding Method Toilet External Catheter Indwelling Catheter - Exam General appearance: The patient is lethargic, but responsive. Currently on BiPAP. HET: Head is normocephalic and atraumatic. Neck: Supple. Heart: Regular. Lungs: Equal expansion, increased respiratory effort. Abdomen: Soft, nondistended. Extremities: Normal skin color and turgor. Lower extremities warm to the touch, feet slightly cooler. Nonpalpable pulses. Decreased capillary refill. Unable to obtain DP or PT signal currently because patient is undergoing echocardiogram. Neurological: No focal deficits. Strength and sensation are grossly intact. - Labs CBC & Chem 7: 11/16/24 05:10 11/16/24 05:10 Labs: Abnormal Lab Results - Last 24 Hours (Table) 11/15/24 11/15/24 11/15/24 Range/Units 18:21 18:46 18:46 WBC 15.14 H (4.50-10.00) 10*3/uL RBC 3.31 L (4.10-5.20) 10*6/uL Hgb 6.7 L* (12.0-15.0) g/dL Hct 22.8 L (37.2-46.3) % MCV 68.9 L (80.0-97.0) fL MCH 20.2 L (27.0-32.0) pg MCHC 29.4 L (32.0-37.0) g/dL Immature Gran # 0.12 H (0.00-0.04) 10*3/uL Neutrophils # 13.56 H (1.80-7.70) 10*3/uL Lymphocytes # 0.84 L (0.90-5.00) 10*3/uL Eosinophils # 0.00 L (0.04-0.35) 10*3/uL APTT (22.0-30.0) sec ABG pH 7.46 H (7.35-7.45) ABG pCO2 32 L (35-45) mmHg ABG pO2 51 L* (83-108) mmHg ABG O2 Saturation 85.3 L (94-97) % Hemoglobin 6.9 L* (11.4-16.0) gm/dL Sodium (137-145) mmol/L Chloride (98-107) mmol/L BUN (7-17) mg/dL Glucose (74-99) mg/dL POC Glucose (mg/dL) (70-110) mg/dL Calcium (8.4-10.2) mg/dL Total Bilirubin (0.2-1.3) mg/dL AST (14-36) U/L Troponin I (0.000-0.034) ng/mL Crossmatch See Detail 11/15/24 11/15/24 11/16/24 Range/Units 19:00 19:12 02:42 WBC (4.50-10.00) 10*3/uL RBC (4.10-5.20) 10*6/uL Hgb (12.0-15.0) g/dL Hct (37.2-46.3) % MCV (80.0-97.0) fL MCH (27.0-32.0) pg MCHC (32.0-37.0) g/dL Immature Gran # (0.00-0.04) 10*3/uL Neutrophils # (1.80-7.70) 10*3/uL Lymphocytes # (0.90-5.00) 10*3/uL Eosinophils # (0.04-0.35) 10*3/uL APTT 48.0 H (22.0-30.0) sec ABG pH (7.35-7.45) ABG pCO2 (35-45) mmHg ABG pO2 (83-108) mmHg ABG O2 Saturation (94-97) % Hemoglobin (11.4-16.0) gm/dL Sodium 131 L (137-145) mmol/L Chloride (98-107) mmol/L BUN 25 H (7-17) mg/dL Glucose 156 H (74-99) mg/dL POC Glucose (mg/dL) 168 H (70-110) mg/dL Calcium 8.3 L (8.4-10.2) mg/dL Total Bilirubin (0.2-1.3) mg/dL AST (14-36) U/L Troponin I (0.000-0.034) ng/mL Crossmatch 11/16/24 11/16/24 11/16/24 Range/Units 02:42 05:10 05:10 WBC 13.02 H 15.49 H (4.50-10.00) 10*3/uL RBC 4.09 L (4.10-5.20) 10*6/uL Hgb 9.1 L D 10.4 L (12.0-15.0) g/dL Hct 30.0 L 34.6 L (37.2-46.3) % MCV 73.3 L 73.8 L (80.0-97.0) fL MCH 22.2 L 22.2 L (27.0-32.0) pg MCHC 30.3 L 30.1 L (32.0-37.0) g/dL Immature Gran # 0.15 H (0.00-0.04) 10*3/uL Neutrophils # 12.20 H (1.80-7.70) 10*3/uL Lymphocytes # (0.90-5.00) 10*3/uL Eosinophils # 0.00 L (0.04-0.35) 10*3/uL APTT (22.0-30.0) sec ABG pH (7.35-7.45) ABG pCO2 (35-45) mmHg ABG pO2 (83-108) mmHg ABG O2 Saturation (94-97) % Hemoglobin (11.4-16.0) gm/dL Sodium (137-145) mmol/L Chloride (98-107) mmol/L BUN (7-17) mg/dL Glucose (74-99) mg/dL POC Glucose (mg/dL) (70-110) mg/dL Calcium (8.4-10.2) mg/dL Total Bilirubin (0.2-1.3) mg/dL AST (14-36) U/L Troponin I 0.152 H* (0.000-0.034) ng/mL Crossmatch 11/16/24 11/16/24 Range/Units 05:10 07:50 WBC (4.50-10.00) 10*3/uL RBC (4.10-5.20) 10*6/uL Hgb (12.0-15.0) g/dL Hct (37.2-46.3) % MCV (80.0-97.0) fL MCH (27.0-32.0) pg MCHC (32.0-37.0) g/dL Immature Gran # (0.00-0.04) 10*3/uL Neutrophils # (1.80-7.70) 10*3/uL Lymphocytes # (0.90-5.00) 10*3/uL Eosinophils # (0.04-0.35) 10*3/uL APTT (22.0-30.0) sec ABG pH (7.35-7.45) ABG pCO2 (35-45) mmHg ABG pO2 (83-108) mmHg ABG O2 Saturation (94-97) % Hemoglobin (11.4-16.0) gm/dL Sodium 134 L (137-145) mmol/L Chloride 97 L (98-107) mmol/L BUN 24 H (7-17) mg/dL Glucose 108 H (74-99) mg/dL POC Glucose (mg/dL) (70-110) mg/dL Calcium 8.3 L (8.4-10.2) mg/dL Total Bilirubin 1.8 H (0.2-1.3) mg/dL AST 55 H (14-36) U/L Troponin I 0.196 H* (0.000-0.034) ng/mL Crossmatch Assessment and Plan Assessment: 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 Will reevaluate tomorrow Make n.p.o. after midnight Rest of medical management per primary medical team Thank you for this consultation, we will continue to follow. The impression and plan of care has been dictated as directed. Dr. Natty Merida I performed a history and examination of this patient, discussed the same with the dictator. I agree with the dictator's note ,documented as a scribe. Any additional findings or plans will be noted. Patient still not clinically stable for operative intervention due to respiratory status and overall clinical picture. Will continue to reevaluate on a daily basis to see if there is potential for intervention. Stable hemoglobin at this time, would still anticipate or hope for intervention with tPA thrombolysis. Discussed with ICU
--- NOTE | 2024-11-16 10:48 | XR ---
EXAMINATION TYPE: XR chest 1V portable DATE OF EXAM: 11/16/2024 5:37 AM COMPARISON: 11/15/2024 CLINICAL INDICATION: Female, 79 years old with history of follow up pulmonary edema, on BIPAP, TECHNIQUE: XR chest 1V portable view(s) obtained. FINDINGS: The heart size is mildly prominent. The pulmonary vasculature is prominent. Couple of nodular densities within the left upper lung field present previously. Diffuse increased marita ng markings are present. Correlate for pulmonary edema. IMPRESSION: 1. Clinical correlation for congestive heart failure. There may be slight improvement. [facility], , 11/16/2024 10:45 AM
[2024-11-16 12:57] VITALS: BMI 19.3
--- NOTE | 2024-11-16 19:02 | CA ---
Transthoracic Echo Report Name: Amanda Meraz Age: 79 Gender: F : 1945 Exam Date: 11/16/2024 08:09 Exam Location: [facility] Ht (in): 63 Wt (lb): 104 Ordering Physician: Vitor Kidd Attending/Referring Phys: Shingle Shearing Machine Operator Rosa Diaz RDCS Procedure CPT: Indications: evaluate LV function Cardiac Hx: Technical Quality: Good Contrast 1: Total Dose (mL): Contrast 2: Total Dose (mL): MEASUREMENTS (Male / Female) Normal Values 2D ECHO LVOT Diameter 1.2 cm LA Volume 96.4 cm??? 18 - 58 / 22 - 52 cm??? LA Volume Index 66.9 cm???/m??? 16 - 28 cm???/m??? M-MODE LV Diastolic Diameter MM 5.6 cm 4.2 - 5.9 / 3.9 - 5.3 cm LV Systolic Diameter MM 3.9 cm LV Cardiac Index MM Teich 5812.5 cm???/min???m??? IVS Diastolic Thickness MM 0.9 cm 0.6 - 1.0 / 0.6 - 0.9 cm LVPW Diastolic Thickness MM 0.9 cm 0.6 - 1.0 / 0.6 - 0.9 cm LV Relative Wall Thickness MM 0.3 0.24 - 0.42 / 0.22 - 0.42 LV Mass Index MM 133.7 g/m??? 49 - 115 / 43 - 95 g/m??? DOPPLER MV Peak Velocity 150.2 cm/s MV Peak Gradient 9.0 mmHg MV Mean Velocity 93.4 cm/s MV Mean Gradient 3.9 mmHg MV Velocity Time Integral 37.2 cm MV Area PHT 2.9 cm??? Mitral E Point Velocity 127.3 cm/s Mitral A Point Velocity 94.1 cm/s Mitral E to A Ratio 1.4 MV Deceleration Time 263.4 ms TR Peak Velocity 338.4 cm/s TR Peak Gradient 45.8 mmHg Right Atrial Pressure 15.0 mmHg Pulmonary Artery Systolic Pressu 60.8 mmHg Right Ventricular Systolic Press 60.8 mmHg FINDINGS Left Ventricle Left ventricular ejection fraction is estimated at 60-65 %. Moderately increased left ventricular mass. . No obvious regional wall motion abnormalities.Normal left ventricular systolic function with no obvious regional wall motion abnormalities. Right Ventricle Normal right ventricular size. Severe pulmonary hypertension. Right ventricular systolic pressure estimated at 61 mm hg. right ventricular hypokinesis Right Atrium Normal right atrial size. Left Atrium Severely increased left atrial volume. Mildly increased left atrial area. Mitral Valve Mitral valve thickened. Severe mitral annular calcification. Mild mitral stenosis. Moderate to severe mitral eccentric regurgitation. Aortic Valve Trileaflet aortic valve. Aortic valve sclerosis. No aortic stenosis. No aortic regurgitation. Tricuspid Valve Structurally normal tricuspid valve. No tricuspid stenosis. Mild to Moderate tricuspid regurgitation. Pulmonic Valve Structurally normal pulmonic valve. No pulmonic stenosis. Trace pulmonic regurgitation. Pericardium Left pleural effusion. Small pericardial effusion. Aorta Aortic annulus normal. CONCLUSIONS 1. Normal left ventricular size and systolic function 2. Severe mitral calcification with moderate to severe eccentric mitral regurgitation and mild mitral stenosis 3. Mild to moderate tricuspid regurgitation with severe pulmonary hypertension Previewed by: Dr. Pako Fonseca MD (Electronically Signed) Final Date: 16 November 2024 19:01
--- NOTE | 2024-11-16 19:25 | P.PN ---
Subjective Progress Note Date: 11/16/24 H&P Date: 11/14/24 Chief Complaint: Right lower extremity pain This is a 79-year-old female with past medical history significant for PVD, claudication, aortobifemoral artery bypass 12/19, left femoral artery endarterectomy, extensive nicotine dependence, COPD, hypertension, hyperlipidemia presented to the ER with complaints of right lower extremity pain. Patient presented to the ER earlier in the a.m. with bilateral lower extremity pain, worse on the right with some numbness over the last three weeks with limited ability walking, sustained a fall,denying head trauma or syncope. CT angio bilateral lower extremities reported obstruction of the visualized portion of the right iliac stent, collateral flow reconstitutes the right superficial femoral artery, several areas of stenosis within the superficial femoral arteries bilaterally which remain patent to the popliteal artery, bilateral patent lower extremity popliteal and trifurcation vessels patent to the ankle. ER reports discussing with vascular surgery recommending discharge with instructions to follow-up with Dr. Liu at their office in the afternoon. Apparently right lower extremity pain, numbness continued to worsen and patient returned to the ER and was unable to keep her vascular appointment. denies any chest pain, palpitations or shortness of breath.Denies any lightheadedness dizziness or focal deficits. Currently denies chest pain, palpitations or shortness of breath. Vascular surgery on consult with further reccomendations to follow. Afebrile, labs pending. 11/15/2024 complains of right lower extremity pain, vascular surgery evaluation pending. Maintained on IV fluid hydration. Denies chest pain, palpitations or shortness of breath. Tolerating diet, consumed 50% of breakfast and 75% of lunch. Denies nausea vomiting or diarrhea.Denies abdominal pain. 11/16/2024 patient developed respiratory distress yesterday afternoon, A team ca lled, patient transferred into ICU placed on BiPAP. FiO2 decreased to 80, titrating to O2 sats of 92%. CTA reported no pulmonary embolism, possible fluid overload. Diuresing well Lasix IV push with 24-hour TRISHA reflecting a negative fluid balance. chest x-ray this morning reports slight improvement. Renal function stable. last night ,labs reflected a decrease in hemoglobin to 6.7, received 1 unit of packed RBCs. Repeat hemoglobin at 242 reported 9.1, at 05 10 hemoglobin 10.4. Maintained on heparin drip. Vascular surgery following. denies chest pain, palpitations. Conversing with BiPAP on. Anticoagulated on heparin drip. Tmax 101.1. Maintained on Zosyn. Troponins elevated and cardiology consult in place. Telemetry sinus. Echo pending. Objective - Vital Signs Vital signs: Vital Signs Temp 98.1 F 11/16/24 16:00 Pulse 96 11/16/24 18:00 Resp 21 11/16/24 18:00 BP 120/82 11/16/24 18:00 Pulse Ox 94 L 11/16/24 18:00 FiO2 65 11/16/24 16:00 Intake & Output 11/15/24 11/16/24 11/16/24 18:59 06:59 18:59 Intake Total 500 1320 500 Output Total 2 1230 1215 Balance 498 90 -715 Weight 47.174 kg 49.351 kg 49.351 kg Intake: IV 700 500 Piperacillin-Tazobactam 3 100 .375 gm In Sodium Chloride 0.9% 100 ml @ 25 mls/hr IVPB Q8H EDYTA Rx#: [id number] Sodium Chloride 0.9% 1, 600 500 000 ml @ 50 mls/hr IV . Q20H EDYTA Rx#:[id number] Oral 500 Blood Product 620 Rc As-1 Unit 310 [id number] Output: Urine 2 1230 1215 Other: Voiding Method Toilet External Catheter Indwelling Catheter - Exam PHYSICAL EXAM: VITAL SIGNS: [As above] GENERAL: 79-year-old female, pleasant, alert and oriented x 3, sitting up in bed, wearing BiPAP,NAD, conversing. HEENT: Normocephalic, atraumatic conjunctivae pale. NECK: Supple, No JVD. CARDIOVASCULAR: S1, S2 regular, systolic murmur RESPIRATION: equal air entry, bilateral bases diminished. ABDOMEN: Soft, nondistended, nontender, no guarding, no rigidity, positive bowel sounds. EXTREMITIES: Bilateral lower extremities no edema,positive Doppler DP pulses, warm; right lower extremity cooler NERVOUS SYSTEM: Cranial N 2-12 grossly normal.No focal deficit. Skin: Warm and dry, no rash - Labs CBC & Chem 7: 11/16/24 05:10 11/16/24 05:10 Labs: Abnormal Lab Results - Last 24 Hours (Table) 11/15/24 11/15/24 11/15/24 Range/Units 18:21 18:46 18:46 WBC 15.14 H (4.50-10.00) 10*3/uL RBC 3.31 L (4.10-5.20) 10*6/uL Hgb 6.7 L* (12.0-15.0) g/dL Hct 22.8 L (37.2-46.3) % MCV 68.9 L (80.0-97.0) fL MCH 20.2 L (27.0-32.0) pg MCHC 29.4 L (32.0-37.0) g/dL Immature Gran # 0.12 H (0.00-0.04) 10*3/uL Neutrophils # 13.56 H (1.80-7.70) 10*3/uL Lymphocytes # 0.84 L (0.90-5.00) 10*3/uL Eosinophils # 0.00 L (0.04-0.35) 10*3/uL APTT (22.0-30.0) sec ABG pH 7.46 H (7.35-7.45) ABG pCO2 32 L (35-45) mmHg ABG pO2 51 L* (83-108) mmHg ABG O2 Saturation 85.3 L (94-97) % Hemoglobin 6.9 L* (11.4-16.0) gm/dL Sodium (137-145) mmol/L Chloride (98-107) mmol/L BUN (7-17) mg/dL Glucose (74-99) mg/dL POC Glucose (mg/dL) (70-110) mg/dL Calcium (8.4-10.2) mg/dL Total Bilirubin (0.2-1.3) mg/dL AST (14-36) U/L Troponin I (0.000-0.034) ng/mL Procalcitonin (0.02-0.50) ng/mL Crossmatch See Detail 11/15/24 11/15/24 11/16/24 Range/Units 19:00 19:12 02:42 WBC (4.50-10.00) 10*3/uL RBC (4.10-5.20) 10*6/uL Hgb (12.0-15.0) g/dL Hct (37.2-46.3) % MCV (80.0-97.0) fL MCH (27.0-32.0) pg MCHC (32.0-37.0) g/dL Immature Gran # (0.00-0.04) 10*3/uL Neutrophils # (1.80-7.70) 10*3/uL Lymphocytes # (0.90-5.00) 10*3/uL Eosinophils # (0.04-0.35) 10*3/uL APTT 48.0 H (22.0-30.0) sec ABG pH (7.35-7.45) ABG pCO2 (35-45) mmHg ABG pO2 (83-108) mmHg ABG O2 Saturation (94-97) % Hemoglobin (11.4-16.0) gm/dL Sodium 131 L (137-145) mmol/L Chloride (98-107) mmol/L BUN 25 H (7-17) mg/dL Glucose 156 H (74-99) mg/dL POC Glucose (mg/dL) 168 H (70-110) mg/dL Calcium 8.3 L (8.4-10.2) mg/dL Total Bilirubin (0.2-1.3) mg/dL AST (14-36) U/L Troponin I (0.000-0.034) ng/mL Procalcitonin (0.02-0.50) ng/mL Crossmatch 11/16/24 11/16/24 11/16/24 Range/Units 02:42 05:10 05:10 WBC 13.02 H 15.49 H (4.50-10.00) 10*3/uL RBC 4.09 L (4.10-5.20) 10*6/uL Hgb 9.1 L D 10.4 L (12.0-15.0) g/dL Hct 30.0 L 34.6 L (37.2-46.3) % MCV 73.3 L 73.8 L (80.0-97.0) fL MCH 22.2 L 22.2 L (27.0-32.0) pg MCHC 30.3 L 30.1 L (32.0-37.0) g/dL Immature Gran # 0.15 H (0.00-0.04) 10*3/uL Neutrophils # 12.20 H (1.80-7.70) 10*3/uL Lymphocytes # (0.90-5.00) 10*3/uL Eosinophils # 0.00 L (0.04-0.35) 10*3/uL APTT (22.0-30.0) sec ABG pH (7.35-7.45) ABG pCO2 (35-45) mmHg ABG pO2 (83-108) mmHg ABG O2 Saturation (94-97) % Hemoglobin (11.4-16.0) gm/dL Sodium (137-145) mmol/L Chloride (98-107) mmol/L BUN (7-17) mg/dL Glucose (74-99) mg/dL POC Glucose (mg/dL) (70-110) mg/dL Calcium (8.4-10.2) mg/dL Total Bilirubin (0.2-1.3) mg/dL AST (14-36) U/L Troponin I 0.152 H* (0.000-0.034) ng/mL Procalcitonin (0.02-0.50) ng/mL Crossmatch 11/16/24 11/16/24 11/16/24 Range/Units 05:10 05:10 07:50 WBC (4.50-10.00) 10*3/uL RBC (4.10-5.20) 10*6/uL Hgb (12.0-15.0) g/dL Hct (37.2-46.3) % MCV (80.0-97.0) fL MCH (27.0-32.0) pg MCHC (32.0-37.0) g/dL Immature Gran # (0.00-0.04) 10*3/uL Neutrophils # (1.80-7.70) 10*3/uL Lymphocytes # (0.90-5.00) 10*3/uL Eosinophils # (0.04-0.35) 10*3/uL APTT (22.0-30.0) sec ABG pH (7.35-7.45) ABG pCO2 (35-45) mmHg ABG pO2 (83-108) mmHg ABG O2 Saturation (94-97) % Hemoglobin (11.4-16.0) gm/dL Sodium 134 L (137-145) mmol/L Chloride 97 L (98-107) mmol/L BUN 24 H (7-17) mg/dL Glucose 108 H (74-99) mg/dL POC Glucose (mg/dL) (70-110) mg/dL Calcium 8.3 L (8.4-10.2) mg/dL Total Bilirubin 1.8 H (0.2-1.3) mg/dL AST 55 H (14-36) U/L Troponin I 0.196 H* (0.000-0.034) ng/mL Procalcitonin 4.33 H (0.02-0.50) ng/mL Crossmatch 11/16/24 Range/Units 10:38 WBC (4.50-10.00) 10*3/uL RBC (4.10-5.20) 10*6/uL Hgb (12.0-15.0) g/dL Hct (37.2-46.3) % MCV (80.0-97.0) fL MCH (27.0-32.0) pg MCHC (32.0-37.0) g/dL Immature Gran # (0.00-0.04) 10*3/uL Neutrophils # (1.80-7.70) 10*3/uL Lymphocytes # (0.90-5.00) 10*3/uL Eosinophils # (0.04-0.35) 10*3/uL APTT (22.0-30.0) sec ABG pH (7.35-7.45) ABG pCO2 (35-45) mmHg ABG pO2 (83-108) mmHg ABG O2 Saturation (94-97) % Hemoglobin (11.4-16.0) gm/dL Sodium (137-145) mmol/L Chloride (98-107) mmol/L BUN (7-17) mg/dL Glucose (74-99) mg/dL POC Glucose (mg/dL) (70-110) mg/dL Calcium (8.4-10.2) mg/dL Total Bilirubin (0.2-1.3) mg/dL AST (14-36) U/L Troponin I 0.233 H* (0.000-0.034) ng/mL Procalcitonin (0.02-0.50) ng/mL Crossmatch Assessment and Plan Assessment: Right lower extremity pain, blocked graft ,in a patient with history of aor tobifemoral arterial bypass left femoral endarterectomy, Acute hypoxic respiratory failure, currently on BiPAP. PE ruled out per CTA, Elevated troponins, cardiology following Leukocytosis Possible pneumonia-procalcitonin 4.33 Possible CHF exacerbation, echo pending Atelectasis History of chronic claudication PVD Extensive nicotine dependence, has smoked one pack per day since the age of 13, counseled extensively. Chronic iron deficiency anemia Moderate protein calorie malnutrition, BMI 16 COPD,severe Hypertension Hyperlipidemia Anxiety Depression Plan: Continue on current medication regimen ,monitoring and symptomatic treatment. Elevated troponins, cardiology consult in place, recommendations pending .fever this morning, blood cultures ordered.vascular intervention pending stabilizing of respiratory function. recommendations pending. Pain management. IV fluid hydration. Maintain aggressive pulmonary toileting with incentive spirometer, nebulized bronchodilators, Pulmicort, Lasix. ICU management as per intensivst. The impression and plan of care has been dictated as directed. : I performed a history and examination of this patient, discussed the same with the dictator. I agree with the dictator's note ,documented as a scribe. Any additional findings or plans will be noted.
--- NOTE | 2024-11-16 20:15 | CONS ---
CONSULTATION Cardiology Consultation Note HISTORY OF PRESENT ILLNESS: This is a 79-year-old lady, who underwent aortobifem bypass surgery recently and presented to hospital with pain and numbness involving her lower extremity. She has history of peripheral arterial disease. She was found to have an occluded stent and she developed shortness of breath, due to which Cardiology had been consulted. A CT scan of the chest was negative for pulmonary embolism, but shows evidence of fluid overload. BNP is elevated at 12,400. PAST MEDICAL HISTORY: Significant for peripheral arterial disease, hypertension, dyslipidemia and COPD. MEDICATIONS: At home included; 1. Fosamax. 2. Lipitor. 3. Norvasc. 4. Lexapro. 5. Lasix. ALLERGIES: There are no known drug allergies. FAMILY HISTORY: Negative for premature coronary artery disease. SOCIAL HISTORY: Negative for current smoking. She quit in 2021. REVIEW OF SYSTEMS: review of systems has been performed, pertinent are as documented. PHYSICAL EXAMINATION: VITAL SIGNS: On exam, heart rate is 89 beats per minute, blood pressure is 122/65, respiratory rate is 18, and O2 saturation is 94%. NECK: There is no jugular venous distention. CHEST: Reveals occasional rhonchi and diminished air entry bilaterally. HEART: Reveals first and second heart sounds and a systolic murmur at the apex. ABDOMEN: Soft. EXTREMITIES: Examination of the extremities did not reveal any edema. Peripheral pulses are felt. LABORATORY DATA: Labs show that the troponin is elevated at 0.15 and 0.19. BNP is elevated at 12,400. Potassium is 4.2, creatinine is 0.7. Hemoglobin is 10. ASSESSMENT: 1. Acute onset congestive heart failure. 2. Peripheral arterial disease status post aortobifem bypass surgery, status post occlusion. 3. Hypertension. 4. Dyslipidemia. PLAN: The patient is currently on IV heparin for the peripheral arterial disease, on IV Lasix for the fluid overload. Troponin elevation is a type 2 myocardial infarction related to heart failure. I will obtain a 2D echo to evaluate her LV function and wall motion. MMODL / IJN: [id number] /
[2024-11-17 06:09] LABS: Basophils # (A) 0.05 10*3/uL (0.00-0.10); Basophils % (A) 0.3 %; Eosinophils # (A) 0.03 10*3/uL (0.04-0.35); Eosinophils % (A) 0.2 %; HCT 27.9 % (37.2-46.3); Lymphocytes # (A) 0.69 10*3/uL (0.90-5.00); Lymphocytes % (A) 3.6 %; MCH 22.1 pg (27.0-32.0); MCHC 30.5 g/dL (32.0-37.0); MCV 72.5 fL (80.0-97.0); Mean Platelet Volume 10.6 fL (9.5-12.2); Monocytes # (A) 0.63 10*3/uL (0.20-1.00); Monocytes % (A) 3.3 %; Neutrophils # (A) 17.48 10*3/uL (1.80-7.70); Neutrophils % (A) 91.3 %; Platelet Count 282 10*3/uL (140-440); RBC 3.85 10*6/uL (4.10-5.20); RDW 21.2 % (11.5-14.5); WBC 19.13 10*3/uL (4.50-10.00)
[2024-11-17 06:22] LABS: HGB 8.5 g/dL (12.0-15.0)
[2024-11-17 06:26] LABS: African American GFR (CKD) 67 (>60 ml/min/1.73 sqM); Anion Gap 11 mmol/L; Blood Urea Nitrogen 25 mg/dL (7-17); Calcium 7.9 mg/dL (8.4-10.2); Carbon Dioxide 27 mmol/L (22-30); Chloride 97 mmol/L (98-107); Glucose 139 mg/dL (74-99); Non-African American GFR(CKD) 58 (>60 ml/min/1.73 sqM); Sodium 135 mmol/L (137-145)
[2024-11-17] MEDS ORDERED: Potassium Replacement Protocol 1 EACH MISC MISCELLANE PRN (06:40)
[2024-11-17] MEDS: HEPARIN SODIUM 1,000 UN/ML (10ML VL) IV PRN (07:33)
[2024-11-17] MEDS: POTASSIUM CHLORIDE 10 MEQ in WATER FOR INJECTION 1 100ML.BAG IVPB SCH (08:47)
--- NOTE | 2024-11-17 09:31 | XR ---
EXAMINATION TYPE: XR chest 1V portable DATE OF EXAM: 11/17/2024 5:51 AM COMPARISON: 11/16/2024 CLINICAL INDICATION: Female, 79 years old with history of respiratory failure, TECHNIQUE: XR chest 1V portable views of the chest are obtained. FINDINGS: Demonstrated are scattered senescent parenchymal change. Pulmonary venous congestion with scattered infiltrates and bilateral pleural effusions compatible wit h COPD in a patient with underlying COPD. Hilar and mediastinal structures are within normal limits. Degenerative changes are seen of the dorsal spine. IMPRESSION: 1. Pulmonary venous congestion with scattered infiltrates and bilateral pleural effusions compatible with COPD in a patient with underlying COPD. [facility], , 11/17/2024 9:28 AM
--- NOTE | 2024-11-17 12:18 | PN ---
PROGRESS NOTE FOLLOWUP NOTE SUBJECTIVE: Amanda is a 79-year-old lady, who had recently underwent aortobifem bypass surgery and was admitted to hospital with acute occlusion. Currently, on IV heparin, developed acute pulmonary edema last night. Had an echocardiogram on this admission that revealed normal LV function. PHYSICAL EXAMINATION: GENERAL: On exam, comfortable at rest. VITAL SIGNS: Stable. CHEST: Reveals diminished air entry bilaterally with occasional crackles and rhonchi. HEART: Reveals first and second heart sounds. Systolic murmur at the left lower sternal border. ABDOMEN: Soft. EXTREMITIES: Examination of the extremities reveals mild edema. LABORATORY DATA: Lab show a hemoglobin of 8.5, platelet count is 280. BUN is 25, creatinine is 0.9. Troponin remained flat at 0.1. ASSESSMENT: 1. Acute arterial occlusion with ischemic leg, on IV heparin. Vascular Surgery is on the case. 2. Acute pulmonary edema, acute-onset diastolic heart failure. PLAN: I will treat the patient with IV Lasix. MMDARRELL / IJN: [id number] /
--- NOTE | 2024-11-17 12:40 | P.PN ---
Subjective Progress Note Date: 11/17/24 Patient is 79-year-old female with past medical history significant for peripheral arterial disease with previous aortic bifemoral bypass in 2021, intermittent claudication symptoms, previous nicotine dependence, hypertension, hyperlipidemia, COPD. Her primary care provider is Dr. Ramo Hester. Of note, bisi suarez has been having bilateral intermittent leg pain for some time, however, developed acute worsening of right lower extremity pain even at rest over the last 24 hours. Accompanied with trouble ambulating and leg numbness. Did undergo CT angio of the lower extremities bilaterally on 11/14/2024 remarkable for obstruction of the visualized portion of the right iliac stent. Collateral flow reconstitutes at the right superficial femoral artery. There were several areas of stenosis within the superficial femoral arteries bilaterally which remain patent to the popliteal artery. Bilateral patent lower extremity popliteal and trifurcation vessels patent to the ankle. Vascular surgery is on the case. Patient previously started on heparin. Rapid response called yesterday evening at 1742 as the patient was noted to be have increased work of breathing following ambulation. Vascular surgery was evaluating the patient at this time. SpO2 reported in the 80s on 6 L/min nasal cannula. ABG remarkable for PO2 of 51, PCO2 of 32, pH of 7.46. Patient was placed on a nonrebreather and transferred to the intensive care unit. CT angiogram did not show any filling defects consistent with pulmonary embolism. There is diffuse interlobular septal thickening and moderate right and small left pleural effusions concerning for pulmonary edema. Additionally, superimposed bronchial wall thickening and scattered mucous plugging with regions of atelectasis. Consolidative changes in the lower lobes could reflect compressive atelectasis and/or pneumonia. Prominent mediastinal and bilateral hilar lymph nodes possibly reactive to infectious or inflammatory process. Repeat labs including a CBC with a WBC count of 15, hemoglobin is dropped from 7.4 g/dL to 6.7 g/dL, platelets 288. No obvious active bleeding. No melena, hematochezia, vomiting or hematemesis. Patient has been previously started on systemic IV heparin and her most recent APTT is 25. EKG, sinus rhythm, rate 87 bpm, frequent PACs, no acute ischemic changes. CMP: Sodium 131, potassium 3.7, chloride 98, serum bicarb 22, BUN 25, creatinine 0.77, glucose 156. Patient is now being seen in the intensive care unit. She is on BiPAP with settings 12/5 and FiO2 of 60%. Nontachypneic. Generating adequate tidal volumes SpO2 is reading in the mid 90s. She does not appear to be any respiratory distress. She is alert and oriented. Does not appear anxious. Able to carry out full conversation. Denies any chest pain. Denies any lower extremity edema. Denies history of heart failure. Does report history of COPD. Reportedly does not take any inhalers at home. Denies any infectious-like symptoms or outpatient treatment for pneumonia. Denies any sick contacts. No fevers or chills. No coughing, wheezing, sputum production, hemoptysis. Her leg pain is improved. Pulses found with Doppler only. Right foot is cool. Heparin is infusing per protocol. Currently, receiving a unit of packed red blood cells. Normal saline infusing at 50 mL/h. Current vital signs: Temperature 97.9 F, heart 87 bpm, blood pressure 120/66 mmHg, nontachypneic, on BiPAP with above-mentioned settings. The patient is seen today November 17, 2024 in follow-up in the intensive care unit. She is currently sitting up in bed. Awake, anxious, on BiPAP 12/5 and 80% FiO2. Chest x-ray reveals pulmonary venous congestion with scattered infi ltrates and bilateral pleural effusions. Evidence of COPD. She is status post 1 unit of packed red blood cells this admission. Current hemoglobin 8.5. Platelets 282. White count 19.1. Sodium 135. Potassium 3.0. Bicarb 27. BUN 25. Creatinine 0.94. Glucose 139. Stool for occult blood is positive. Troponin 0.196, 0.233, 0.138. She remains on DuoNeb inhalations, Pulmicort and Perforomist inhalations. Remains on IV diuretics. Remains on Zosyn. She remains on a heparin drip. Currently in a -900 mL balance. Objective - Vital Signs Vital signs: Vital Signs Temp 98 F 11/17/24 08:00 Pulse 103 H 11/17/24 12:09 Resp 15 11/17/24 11:00 BP 125/68 11/17/24 11:00 Pulse Ox 96 11/17/24 11:00 FiO2 80 11/17/24 11:51 Intake & Output 11/16/24 11/17/24 11/17/24 18:59 06:59 18:59 Intake Total 600 550 864.677 Output Total 1305 720 395 Balance -705 -170 469.677 Weight 49.351 kg 48.9 kg Intake: IV 600 550 350 Piperacillin-Tazobactam 3 100 .375 gm In Sodium Chloride 0.9% 100 ml @ 25 mls/hr IVPB Q8H EDYTA Rx#: [id number] Sodium Chloride 0.9% 1, 600 550 250 000 ml @ 50 mls/hr IV . Q20H EDYTA Rx#:[id number] Intake, IV Titration 514.677 Amount Heparin Sod,Pork in 0.45% 214.677 NaCl 25,000 unit In 0.45 % NaCl 1 250ml.bag @ 12 UNITS/KG/HR 5.661 mls/hr IV .Q24H EDYTA Rx#: [id number] Potassium Chloride 10 meq 300 In Water For Injection 1 100ml.bag @ 100 mls/hr IVPB Q1HR EDYTA Rx#: [id number] Output: Urine 1305 720 395 Other: Voiding Method Indwelling Catheter Indwelling Catheter # Bowel Movements 1 1 - Exam GENERAL EXAM: Alert, anxious 79-year-old female, BiPAP with settings 12/5 and FiO2 of 80%, and tolerating this well. Generating adequate tidal volumes HEAD: Normocephalic and atraumatic EYES: Normal reaction of pupils, equal size. NOSE: Clear with pink turbinates. THROAT: No erythema or exudates. NECK: No masses, no JVD. CHEST: No chest wall deformity. LUNGS: Equal air entry with diminished bibasilar lung sounds. No wheezing, rhonchi, crackles. Nontachypneic. CVS: S1 and S2 normal with systolic murmur, regular rhythm. No other extra heart sounds ABDOMEN: No hepatosplenomegaly, active bowel sounds, no guarding or rigidity. SPINE: No scoliosis or deformity SKIN: No rashes CENTRAL NERVOUS SYSTEM: No focal deficits, tone is normal in all 4 extremities. EXTREMITIES: Able to move bilateral lower extremities without weakness, right foot is cool to palpation left foot is warm, distal pulses difficult to find even with Doppler. Lower extremities are pink. No edema or cyanosis - Labs CBC & Chem 7: 11/17/24 05:21 11/17/24 05:21 Labs: Abnormal Lab Results - Last 24 Hours (Table) 11/16/24 11/17/24 11/17/24 Range/Units 05:10 05:16 05:21 WBC 19.13 H (4.50-10.00) 10*3/uL RBC 3.85 L (4.10-5.20) 10*6/uL Hgb 8.5 L D (12.0-15.0) g/dL Hct 27.9 L (37.2-46.3) % MCV 72.5 L (80.0-97.0) fL MCH 22.1 L (27.0-32.0) pg MCHC 30.5 L (32.0-37.0) g/dL Immature Gran # 0.25 H (0.00-0.04) 10*3/uL Neutrophils # 17.48 H (1.80-7.70) 10*3/uL Lymphocytes # 0.69 L (0.90-5.00) 10*3/uL Eosinophils # 0.03 L (0.04-0.35) 10*3/uL APTT 35.3 H (22.0-30.0) sec Sodium (137-145) mmol/L Potassium (3.5-5.1) mmol/L Chloride (98-107) mmol/L BUN (7-17) mg/dL Glucose (74-99) mg/dL Calcium (8.4-10.2) mg/dL Troponin I (0.000-0.034) ng/mL Procalcitonin 4.33 H (0.02-0.50) ng/mL Stool Occult Blood (Negative) 11/17/24 11/17/24 11/17/24 Range/Units 05:21 08:43 09:49 WBC (4.50-10.00) 10*3/uL RBC (4.10-5.20) 10*6/uL Hgb (12.0-15.0) g/dL Hct (37.2-46.3) % MCV (80.0-97.0) fL MCH (27.0-32.0) pg MCHC (32.0-37.0) g/dL Immature Gran # (0.00-0.04) 10*3/uL Neutrophils # (1.80-7.70) 10*3/uL Lymphocytes # (0.90-5.00) 10*3/uL Eosinophils # (0.04-0.35) 10*3/uL APTT (22.0-30.0) sec Sodium 135 L (137-145) mmol/L Potassium 3.0 L (3.5-5.1) mmol/L Chloride 97 L (98-107) mmol/L BUN 25 H (7-17) mg/dL Glucose 139 H (74-99) mg/dL Calcium 7.9 L (8.4-10.2) mg/dL Troponin I 0.138 H* (0.000-0.034) ng/mL Procalcitonin (0.02-0.50) ng/mL Stool Occult Blood Positive H (Negative) Assessment and Plan Assessment: Acute hypoxemic respiratory failure, currently requiring BiPAP, chest CT angiogram did not show any filling defects concerning for pulmonary embolism. Diffuse interlobular septal thickening and moderate right and small left pleural effusions concerning for pulmonary edema. Additionally, superimposed bronchial wall thickening and scattered mucous plugging with regions of atelectasis. Consolidative changes in the lower lobes could reflect compressive atelectasis or developing pneumonia. Prominent mediastinal and bilateral hilar lymph nodes possibly reactive to infectious or inflammatory process. 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 Peripheral arterial disease, with previous aortic bifemoral bypass and left femoral artery endarterectomy in 2021 Acute on chronic anemia; microcytic, hypochromic, receiving 1 unit PRBCs Acute leukocytosis Hypertension Hyperlipidemia Former tobacco smoker, quit in 2021 Anxiety/depression Plan: The patient was seen and evaluated Chest x-ray, labs and medications reviewed Remains on BiPAP for now Continue DuoNeb inhalations Continue Perforomist and Pulmicort inhalations, Continue IV diuretics Dilaudid for pain control Ativan for anxiety Vascular surgery following No plans for intervention at this time Remains on a heparin drip Prognosis remains guarded DNR CODE STATUS We will continue to follow I have personally seen and examined the patient, performed the documentation and the assessment and plan as written. Number of minutes spent on the visit: 10 Dictation was produced using [employer] dictation software. Please excuse any grammatical, word or spelling errors.
--- NOTE | 2024-11-17 12:42 | P.PN ---
Subjective Progress Note Date: 11/17/24 Patient seen and examined at this time in the ICU, had to be replaced back on BiPAP at high level due to deoxygenation earlier this morning. Diaphoretic and tachycardic. Overall appearing slightly worse respiratory sharma Mild respiratory distress sitting at the bedside. Worsens with contact down the bilateral lower extremities, slightly cooler on the right. No open wounds Objective - Vital Signs Vital signs: Vital Signs Temp 98 F 11/17/24 08:00 Pulse 103 H 11/17/24 12:09 Resp 15 11/17/24 11:00 BP 125/68 11/17/24 11:00 Pulse Ox 96 11/17/24 11:00 FiO2 80 11/17/24 11:51 Intake & Output 11/16/24 11/17/24 11/17/24 18:59 06:59 18:59 Intake Total 600 550 864.677 Output Total 1305 720 395 Balance -705 -170 469.677 Weight 49.351 kg 48.9 kg Intake: IV 600 550 350 Piperacillin-Tazobactam 3 100 .375 gm In Sodium Chloride 0.9% 100 ml @ 25 mls/hr IVPB Q8H EDYTA Rx#: [id number] Sodium Chloride 0.9% 1, 600 550 250 000 ml @ 50 mls/hr IV . Q20H EDYTA Rx#:[id number] Intake, IV Titration 514.677 Amount Heparin Sod,Pork in 0.45% 214.677 NaCl 25,000 unit In 0.45 % NaCl 1 250ml.bag @ 12 UNITS/KG/HR 5.661 mls/hr IV .Q24H EDYTA Rx#: [id number] Potassium Chloride 10 meq 300 In Water For Injection 1 100ml.bag @ 100 mls/hr IVPB Q1HR EDYTA Rx#: [id number] Output: Urine 1305 720 395 Other: Voiding Method Indwelling Catheter Indwelling Catheter # Bowel Movements 1 1 - Exam General appearance: The patient is lethargic, but responsive. Currently on BiPAP. HET: Head is normocephalic and atraumatic. Neck: Supple. Heart: Regular. Lungs: Equal expansion, increased respiratory effort. Abdomen: Soft, nondistended. Extremities: Normal skin color and turgor. Lower extremities warm to the touch, feet slightly cooler. Nonpalpable pulses. Decreased capillary refill. Neurological: No focal deficits. Strength and sensation are grossly intact. - Labs CBC & Chem 7: 11/17/24 05:21 11/17/24 05:21 Labs: Abnormal Lab Results - Last 24 Hours (Table) 11/16/24 11/17/24 11/17/24 Range/Units 05:10 05:16 05:21 WBC 19.13 H (4.50-10.00) 10*3/uL RBC 3.85 L (4.10-5.20) 10*6/uL Hgb 8.5 L D (12.0-15.0) g/dL Hct 27.9 L (37.2-46.3) % MCV 72.5 L (80.0-97.0) fL MCH 22.1 L (27.0-32.0) pg MCHC 30.5 L (32.0-37.0) g/dL Immature Gran # 0.25 H (0.00-0.04) 10*3/uL Neutrophils # 17.48 H (1.80-7.70) 10*3/uL Lymphocytes # 0.69 L (0.90-5.00) 10*3/uL Eosinophils # 0.03 L (0.04-0.35) 10*3/uL APTT 35.3 H (22.0-30.0) sec Sodium (137-145) mmol/L Potassium (3.5-5.1) mmol/L Chloride (98-107) mmol/L BUN (7-17) mg/dL Glucose (74-99) mg/dL Calcium (8.4-10.2) mg/dL Troponin I (0.000-0.034) ng/mL Procalcitonin 4.33 H (0.02-0.50) ng/mL Stool Occult Blood (Negative) 11/17/24 11/17/24 11/17/24 Range/Units 05:21 08:43 09:49 WBC (4.50-10.00) 10*3/uL RBC (4.10-5.20) 10*6/uL Hgb (12.0-15.0) g/dL Hct (37.2-46.3) % MCV (80.0-97.0) fL MCH (27.0-32.0) pg MCHC (32.0-37.0) g/dL Immature Gran # (0.00-0.04) 10*3/uL Neutrophils # (1.80-7.70) 10*3/uL Lymphocytes # (0.90-5.00) 10*3/uL Eosinophils # (0.04-0.35) 10*3/uL APTT (22.0-30.0) sec Sodium 135 L (137-145) mmol/L Potassium 3.0 L (3.5-5.1) mmol/L Chloride 97 L (98-107) mmol/L BUN 25 H (7-17) mg/dL Glucose 139 H (74-99) mg/dL Calcium 7.9 L (8.4-10.2) mg/dL Troponin I 0.138 H* (0.000-0.034) ng/mL Procalcitonin (0.02-0.50) ng/mL Stool Occult Blood Positive H (Negative) Assessment and Plan Assessment: Acute right iliac limb occlusion of aortobifemoral bypass graft Acute right lower extremity ischemia on chronic Peripheral vascular disease Acute worsening shortness of breath COPD now on BiPAP Plan: At this time again patient appears to be in worsening respiratory distress. I feel at this time it is not to her benefit to take her for intervention, she remains motor or sensory intact. Will continue to evaluate on a daily basis to see if this is something that we are able to go forward with versus needing to do different surgery at some point, potentially open thrombectomy under local with sedation versus continued plan of tPA thrombolysis. Both are discussed wi th the patient. She seems understand that we are at this point going to continue monitoring her overall situation.
[2024-11-17] MEDS: LORazepam 1 MG/0.5 ML VIAL IV PRN ×2 (13:09→17:26)
--- NOTE | 2024-11-17 13:16 | CDI ---
Date: 11/17/2024 From: Margarette [email or web address] Email: [email or web address] Admit Date: 11/14/2024 03:22:00 PM Patient Name: Amanda Meraz Visit Number: [id number] Discharge Date: N/A ATTENTION: The Clinical Documentation Specialists (CDI) and [facility] Coding Staff appreciate your assistance in clarifying documentation. Please respond to the clarification below the line at the bottom and electronically sign. The CDI & [facility] Coding staff will review the response and follow-up if needed. Please note: Queries are made part of the Legal Health Record. If you have any questions, please contact the author of this message via ITS. Dr. Ramo Hester, Conflicting documentation has been found in the medical record. As attending physician, please provide clarification H&P Report (11/14/2024): Moderate protein-calorie malnutrition Registered Dietitian Assessment (11/16/2024): Malnutrition. Severe, chronic History/Risk Factors: 79-year-old female presented to [facility] ED for evaluation due to right lower extremity pain. PMH: Nicotine dependence, chronic obstructive pulmonary disease, hypertension, osteoarthritis, peripheral vascular disease, anxiety, depression, chronic iron deficiency anemia, hyperlipidemia Clinical indicators: Documentation Location: Electronic Medical Record Current BMI: 19.1 Registered Dietitian Assessment (11/16/2024): o Malnutrition. Severe, chronic o Related to intake <75% EEN > 1-month, poor appetite, weight loss, high kcal needs o As evidenced by severe fat and muscle depletion, BMI < 23 kg/m2 (older than 65 years) o Fat: severe buccal and orbital fat pads, fat overlying triceps. Muscle: temporalis, gastrocnemius, quadriceps o Underweight o Catabolic illness, increased caloric demands for COPD diagnosis o Duration > 5 years Treatment: Registered Dietitian Consultation Oral Nutrition Supplement(s): Ensure Enlive TID Please clarify which diagnosis is most appropriate: [X] Severe protein-calorie malnutrition [ ] Moderate protein-calorie malnutrition [ ] Other (please specify) [ ] Unable to determine MTDD
[2024-11-17 13:55] VITALS: TEMP 97.9
[2024-11-17] MEDS: SODIUM CHLORIDE 0.9% 1,000 ML IV ONE (13:57)
--- NOTE | 2024-11-17 14:49 | P.PN ---
Subjective Progress Note Date: 11/17/24 H&P Date: 11/14/24 Chief Complaint: Right lower extremity pain This is a 79-year-old female with past medical history significant for PVD, claudication, aortobifemoral artery bypass 12/19, left femoral artery endarterectomy, extensive nicotine dependence, COPD, hypertension, hyperlipidemia presented to the ER with complaints of right lower extremity pain. Patient presented to the ER earlier in the a.m. with bilateral lower extremity pain, worse on the right with some numbness over the last three weeks with limited ability walking, sustained a fall,denying head trauma or syncope. CT angio bilateral lower extremities reported obstruction of the visualized portion of the right iliac stent, collateral flow reconstitutes the right superficial femoral artery, several areas of stenosis within the superficial femoral arteries bilaterally which remain patent to the popliteal artery, bilateral patent lower extremity popliteal and trifurcation vessels patent to the ankle. ER reports discussing with vascular surgery recommending discharge with instructions to follow-up with Dr. Liu at their office in the afternoon. Apparently right lower extremity pain, numbness continued to worsen and patient returned to the ER and was unable to keep her vascular appointment. denies any chest pain, palpitations or shortness of breath.Denies any lightheadedness dizziness or focal deficits. Currently denies chest pain, palpitations or shortness of breath. Vascular surgery on consult with further reccomendations to follow. Afebrile, labs pending. 11/15/2024 complains of right lower extremity pain, vascular surgery evaluation pending. Maintained on IV fluid hydration. Denies chest pain, palpitations or shortness of breath. Tolerating diet, consumed 50% of breakfast and 75% of lunch. Denies nausea vomiting or diarrhea.Denies abdominal pain. 11/16/2024 patient developed respiratory distress yesterday afternoon, A team ca lled, patient transferred into ICU placed on BiPAP. FiO2 decreased to 80, titrating to O2 sats of 92%. CTA reported no pulmonary embolism, possible fluid overload. Diuresing well Lasix IV push with 24-hour TRISHA reflecting a negative fluid balance. chest x-ray this morning reports slight improvement. Renal function stable. last night ,labs reflected a decrease in hemoglobin to 6.7, received 1 unit of packed RBCs. Repeat hemoglobin at 242 reported 9.1, at 05 10 hemoglobin 10.4. Maintained on heparin drip. Vascular surgery following. denies chest pain, palpitations. Conversing with BiPAP on. Anticoagulated on heparin drip. Tmax 101.1. Maintained on Zosyn. Troponins elevated and cardiology consult in place. Telemetry sinus. Echo pending. 11/17/2024 echo reported normal LV function, severe mitral calcification with moderate to severe eccentric mitral regurgitation and mild mitral stenosis mild to moderate tricuspid regurgitation with severe pulmonary hypertension. maintained on BiPAP 80% FiO2. Continues on Lasix IV push, nebulized bronchodilators, Pulmicort ,Zosyn and heparin drip. proBNP 12,400 ,chest x-ray reporting pulmonary venous congestion with scattered infiltrates and bilateral pleural effusions compatible with COPD. Hemoglobin decreased to 8.5, stool for occult blood positive. Telemetry sinus rhythm with PVCs. Troponin 0.152, 0.196 0.233 0.138. afebrile, WBC 19.13. Potassium 3, receiving supplementation. Bicarb 27, BUN 25, creatinine 0.94. Blood sugars controlled. Complains of right lower extremity pain. Objective - Vital Signs Vital signs: Vital Signs Temp 97.9 F 11/17/24 12:00 Pulse 109 H 11/17/24 13:00 Resp 25 H 11/17/24 13:00 BP 125/64 11/17/24 13:00 Pulse Ox 92 L 11/17/24 13:00 FiO2 80 11/17/24 11:51 Intake & Output 11/16/24 11/17/24 11/17/24 18:59 06:59 18:59 Intake Total 565 003 9685.677 Output Total 1305 720 520 Balance -705 -170 544.677 Weight 49.351 kg 48.9 kg Intake: IV 600 550 450 Piperacillin-Tazobactam 3 100 .375 gm In Sodium Chloride 0.9% 100 ml @ 25 mls/hr IVPB Q8H DEYTA Rx#: [id number] Sodium Chloride 0.9% 1, 600 550 350 000 ml @ 50 mls/hr IV . Q20H EDYTA Rx#:[id number] Intake, IV Titration 614.677 Amount Heparin Sod,Pork in 0.45% 214.677 NaCl 25,000 unit In 0.45 % NaCl 1 250ml.bag @ 12 UNITS/KG/HR 5.661 mls/hr IV .Q24H EDYTA Rx#: [id number] Potassium Chloride 10 meq 400 In Water For Injection 1 100ml.bag @ 100 mls/hr IVPB Q1HR EDYTA Rx#: [id number] Output: Urine 1305 720 520 Other: Voiding Method Indwelling Catheter Indwelling Catheter Indwelling Catheter # Bowel Movements 1 1 - Exam PHYSICAL EXAM: VITAL SIGNS: [As above] GENERAL: alert and oriented x 3,sitting up in bed, wearing BiPAP HEENT: Normocephalic, atraumatic conjunctivae pale. NECK: Supple, No JVD. CARDIOVASCULAR: S1, S2 regular, systolic murmur RESPIRATION: equal air entry, bilateral bases diminished. ABDOMEN: Soft, nondistended, nontender, no guarding, no rigidity, positive bowel sounds. EXTREMITIES: Bilateral lower extremities no edema,warm; nonpalpable pulses, right lower extremity cooler, toes dusky NERVOUS SYSTEM: Cranial N 2-12 grossly normal.No focal deficit. Skin: Warm and dry, no rash - Labs CBC & Chem 7: 11/17/24 05:21 11/17/24 05:21 Labs: Abnormal Lab Results - Last 24 Hours (Table) 11/16/24 11/17/24 11/17/24 Range/Units 05:10 05:16 05:21 WBC 19.13 H (4.50-10.00) 10*3/uL RBC 3.85 L (4.10-5.20) 10*6/uL Hgb 8.5 L D (12.0-15.0) g/dL Hct 27.9 L (37.2-46.3) % MCV 72.5 L (80.0-97.0) fL MCH 22.1 L (27.0-32.0) pg MCHC 30.5 L (32.0-37.0) g/dL Immature Gran # 0.25 H (0.00-0.04) 10*3/uL Neutrophils # 17.48 H (1.80-7.70) 10*3/uL Lymphocytes # 0.69 L (0.90-5.00) 10*3/uL Eosinophils # 0.03 L (0.04-0.35) 10*3/uL APTT 35.3 H (22.0-30.0) sec Sodium (137-145) mmol/L Potassium (3.5-5.1) mmol/L Chloride (98-107) mmol/L BUN (7-17) mg/dL Glucose (74-99) mg/dL Calcium (8.4-10.2) mg/dL Troponin I (0.000-0.034) ng/mL Procalcitonin 4.33 H (0.02-0.50) ng/mL Stool Occult Blood (Negative) 11/17/24 11/17/24 11/17/24 Range/Units 05:21 08:43 09:49 WBC (4.50-10.00) 10*3/uL RBC (4.10-5.20) 10*6/uL Hgb (12.0-15.0) g/dL Hct (37.2-46.3) % MCV (80.0-97.0) fL MCH (27.0-32.0) pg MCHC (32.0-37.0) g/dL Immature Gran # (0.00-0.04) 10*3/uL Neutrophils # (1.80-7.70) 10*3/uL Lymphocytes # (0.90-5.00) 10*3/uL Eosinophils # (0.04-0.35) 10*3/uL APTT (22.0-30.0) sec Sodium 135 L (137-145) mmol/L Potassium 3.0 L (3.5-5.1) mmol/L Chloride 97 L (98-107) mmol/L BUN 25 H (7-17) mg/dL Glucose 139 H (74-99) mg/dL Calcium 7.9 L (8.4-10.2) mg/dL Troponin I 0.138 H* (0.000-0.034) ng/mL Procalcitonin (0.02-0.50) ng/mL Stool Occult Blood Positive H (Negative) Assessment and Plan Assessment: Right lower extremity pain, blocked graft ,in a patient with history of aortobifemoral arterial bypass left femoral endarterectomy, Acute hypoxic respiratory failure, currently on BiPAP. PE ruled out per CTA, Elevated troponins, cardiology following Leukocytosis Possible pneumonia-procalcitonin 4.33 Possible CHF exacerbation, diastolic dysfunction Moderate to severe mitral regurgitation Mild to moderate tricuspid regurgitation Severe pulmonary hypertension Atelectasis History of chronic claudication PVD Extensive nicotine dependence, has smoked one pack per day since the age of 13, counseled extensively. Acute anemia status post 1 unit of packed RBCs Chronic iron deficiency anemia Moderate protein calorie malnutrition, BMI 16 COPD,severe Hypertension Hyperlipidemia Anxiety Depression Plan: Continue on current medication regimen ,monitoring and symptomatic treatment. cultures pending. No vascular intervention at this time. Pain management. Maintain aggressive pulmonary toileting with nebulized bronchodilators, Pulmicort, Lasix. The impression and plan of care has been dictated as directed. : I performed a history and examination of this patient, discussed the same with the dictator. I agree with the dictator's note ,documented as a scribe. Any additional findings or plans will be noted.
[2024-11-17] MEDS ORDERED: ONDANSETRON 4 MG/2 ML VIAL IVP PRN (16:03)
[2024-11-17] MEDS ORDERED: GLYCOPYRROLATE 0.2 MG/ML 2 ML VIAL IVP PRN (16:03)
[2024-11-17] MEDS ORDERED: HYDROmorphone 1 MG/ML 1 ML SYRINGE IVP PRN (16:03)
[2024-11-17] MEDS: POTASSIUM CHLORIDE ER 20 MEQ TAB.ER PO SCH (16:46)
[2024-11-17] MEDS: MORPHINE SULFATE 100 MG in SODIUM CHLORIDE 0.9% 90 ML IV SCH (16:47)
[2024-11-17 19:02] VITALS: BP 138/73; PULSE 77; RESP 25
[2024-11-19] MEDS ORDERED: NON FORMULARY DRUG (Alendronate Sodium [Fosamax] 70 MG Tablet) PO SCH (20:40)
--- NOTE | 2024-11-21 21:22 | CDI ---
Documentation Clarification Form Date: 11/21/2024 08:46:41 PM From: Kianna Ambrose Phone: Admit Date: 11/14/2024 03:22:00 PM Patient Name: Amanda Meraz Visit Number: [id number] Discharge Date: 11/17/2024 07:27:00 PM ATTENTION: The Clinical Documentation Specialists (CDI) and [facility] Coding Staff appreciate your assistance in clarifying documentation. Please respond to the clarification below the line at the bottom and electronically sign. The CDI & [facility] Coding staff will review the response and follow-up if needed. Please note: Queries are made part of the Legal Health Record. If you have any questions, please contact the author of this message via ITS. Doctor/Provider: Ramo Hester There is documentation of Mortality per Nursing Notes. Additional clarification is requested. History/Risk Factors: 79yo F, RLE, recent aortobifemoral arterialbypassleft femoral endarterectomy, AHRF, elevated troponins, leukocytosis, PNA. ADHF, MR, TR, PHTN, PVD w chronicclaudication, CONNIE, severe PCM, COPD, HTN, HLD, smoker, anxiety, depression Clinical Indicators: 11/16/2024patient developedrespiratory distressyesterday afternoon, A team called, patient transferred into ICUplaced on BiPAP. FiO2 decreased to 80, titrating to O2 sats of 92%. CTAreportednoPE,possiblefluid overload. Diuresing well Lasix IV push with 24-hour TRISHA reflecting anegative fluid balance. Chest x-raythis morning reports slight improvement. Renal function stable. Last night, labs reflected adecrease in hemoglobinto 6. 7, received 1o PRBC . Repeat hemoglobin at 242 reported 9. 1, at 05 10 hemoglobin 10. 4. Maintained on heparin drip. Vascular surgery following. Denieschest pain,palpitations. Conversing withBiPAPon. Anticoagulated on heparin drip. Tmax 101. 1. Maintained on Zosyn. Troponinselevatedand cardiology consult in place. Telemetrysinus. Echo pending. Treatment: Pt ; DNRCODE STATUS Can you please clarify cause of mortality? [ X] AE COPD [ X] Acute Diastolic Heart Failure [ ] Other, please specify [ ] Unable to determine (Template Last Revised: July 2020) MTDD
== END 2024-11-17 19:27 | disposition expired ==
LOC: EC 13:08 → 1SOBS 15:22 → OBSVTOIN 15:22 → 2SICU 11-15 19:24
PROVIDERS: ADMIT Family Medicine; ATTEND Family Medicine
PROC: 30233N1 Transfusion of Nonautologous Red Blood Cells into Peripheral Vein, Percutaneous Approach (ICD-10-PCS; 2024-11-15)
PROC: 5A09357 Assistance with Respiratory Ventilation, Less than 24 Consecutive Hours, Continuous Positive Airway Pressure (ICD-10-PCS; principal; 2024-11-16)
DX: T82.856A Stenosis of peripheral vascular stent, initial encounter (principal); E43 Unspecified severe protein-calorie malnutrition; I21.A1 Myocardial infarction type 2; J96.01 Acute respiratory failure with hypoxia; I50.31 Acute diastolic (congestive) heart failure; J18.9 Pneumonia, unspecified organism; I74.5 Embolism and thrombosis of iliac artery; E87.3 Alkalosis; I27.22 Pulmonary hypertension due to left heart disease; J44.1 Chronic obstructive pulmonary disease with (acute) exacerbation; I11.0 Hypertensive heart disease with heart failure; D50.9 Iron deficiency anemia, unspecified; F32.A Depression, unspecified; I08.1 Rheumatic disorders of both mitral and tricuspid valves; J44.0 Chronic obstructive pulmonary disease with (acute) lower respiratory infection; Z68.1 Body mass index [BMI] 19.9 or less, adult; I70.221 Atherosclerosis of native arteries of extremities with rest pain, right leg; Z66 Do not resuscitate; Z51.5 Encounter for palliative care; I70.202 Unspecified atherosclerosis of native arteries of extremities, left leg; I70.211 Atherosclerosis of native arteries of extremities with intermittent claudication, right leg; Y71.1 Therapeutic (nonsurgical) and rehabilitative cardiovascular devices associated with adverse incidents; D72.829 Elevated white blood cell count, unspecified; E78.5 Hyperlipidemia, unspecified; J98.4 Other disorders of lung; F41.9 Anxiety disorder, unspecified; W19.XXXA Unspecified fall, initial encounter; Z95.820 Peripheral vascular angioplasty status with implants and grafts; Z79.83 Long term (current) use of bisphosphonates; Z79.899 Other long term (current) drug therapy; Y83.2 Surgical operation with anastomosis, bypass or graft as the cause of abnormal reaction of the patient, or of later complication, without mention of misadventure at the time of the procedure; Z87.891 Personal history of nicotine dependence
CPT/HCPCS: 36415; 36600; 71045; 71275; 80048; 80053; 82272; 82805; 83735; 83880; 84145; 84484; 85025; 85027; 85610; 85730; 86850; 86900; 86901; 86920; 87040; 93306; 94640; 94660; 96374; 96375; 99284